=== PATIENT | female | born 1985 | race Caucasian/White ===

== ENCOUNTER → 2017-10-26 14:07 | Outpatient (CLI) | payer OTHER, SELFPAY ==
--- NOTE | 2017-10-26 14:16 | VDLE_ITS ---
Reason For Study: LEG PAIN AND SWELLING RIGHT LEFT CFV is compressible, spontaneous, phasic, GSV is normal. competent and demonstrates normal CFV is compressible, spontaneous, phasic, augmentation. competent, and demonstrates normal Procedure augmentation. Exam performed in department. FV is compressible, spontaneous, phasic, A preliminary report was called and/or faxed competent and demonstrates normal to Dr. Borjas. augmentation. POP V is compressible, spontaneous, phasic, competent and demonstrates normal augmentation. T/P Trunk is compressible. PTV is compressible. LT PerV is compressible. Interpretation Summary Deep veins of the left lower extremity are patent and compressible segmentally. There is no evidence of left lower extremity deep vein thrombosis. Valvular competence appears intact within the proximal deep venous system on the left . The left greater saphenous vein appears patent and compressible segmentally. Ordering Physician: Azucena Borjas Referring Physician: Azucena Borjas Performed By: Yisel Francois RVT
== END ==
PROVIDERS: Family Provider Family Medicine; PCP Family Medicine; Visit Provider Family Medicine
DX: M79.89 Other specified soft tissue disorders (principal); M79.606 Pain in leg, unspecified
CPT/HCPCS: 93971

== ENCOUNTER → 2018-02-15 12:24 | Outpatient (CLI) | payer OTHER, SELFPAY | PROVIDERS: Family Provider Family Medicine; PCP Family Medicine; Visit Provider Physician Assistant Surgical | DX: J02.9 Acute pharyngitis, unspecified (principal) | CPT/HCPCS: 87081 ==

== ENCOUNTER → 2018-05-07 13:33 | Outpatient (CLI) | payer OTHER, SELFPAY ==
--- NOTE | 2018-05-07 13:35 | RAD_ITS ---
STUDY: X-RAY - CERVICAL SPINE REASON FOR EXAM: Female, 32 years old. Neck pain, no trauma TECHNIQUE: 5 view(s) of the cervical spine were obtained. COMPARISON: None FINDINGS: Normal anterior atlantoaxial articulation. Normal odontoid process. There is straightening of the normal cervical lordosis. Normal vertebral bodies and endplates. Normal disc space heights. Normal visualized intervertebral neuroforamina. The soft tissue structures are unremarkable. RAD/Cerv Spine 4 or 5 Views IMPRESSION: There is mild straightening of the normal cervical lordosis. This can suggest neck strain. Electronically Signed: Rudi Maldonado MD at 17:13 EDT , Service support ,
== END ==
PROVIDERS: Family Provider Family Medicine; PCP Family Medicine; Visit Provider Physician Assistant
DX: M54.2 Cervicalgia (principal)
CPT/HCPCS: 72050

== ENCOUNTER → 2018-05-31 12:18 | Outpatient (CLI) | payer OTHER, SELFPAY ==
--- NOTE | 2018-05-31 12:26 | MRI_ITS ---
STUDY: MRI CERVICAL SPINE WITHOUT CONTRAST REASON FOR EXAM: Female, 32 years old. CERVICAL RADICULOPATHY;NECK PAIN, BILAT HAND NUMBNESS. TECHNIQUE: Standardized fat and water weighted pulse sequences were obtained in the sagittal and axial planes. # of Images: 273 COMPARISON: May 07, 2018 x-ray FINDINGS: Normal foramen magnum and brainstem-cervical cord junction. Normal craniovertebral junction. Normal anterior atlantoaxial articulation. Normal odontoid process. There is straightening of the normal cervical lordosis. Normal vertebral bodies and posterior osseous elements. C2-3: Normal endplates. Normal disc height, signal and morphology. Normal central canal and intervertebral neural foramina. C3-4: Normal endplates. Normal disc height, signal and morphology. Normal central canal and intervertebral neural foramina. C4-5: Normal endplates. Normal disc height, signal and morphology. Normal central canal and intervertebral neural foramina. C5-6: Normal endplates. Normal disc height, signal and morphology. Normal central canal and intervertebral neural foramina. C6-7: Normal endplates. Normal disc height, signal and morphology. Normal central canal and intervertebral neural foramina. C7-T1: Normal endplates. Normal disc height, signal and morphology. Normal central canal and intervertebral neural foramina. There is mild increased cord signal of the lower cervical and thoracic spinal cord, consistent with syrinx. Further evaluation with contrast-enhanced [facility] MRI is recommended. Normal visualized soft tissue structures. MRI/Spine Cervical (Routine) IMPRESSION: Spinal cord syrinx. Further evaluation with contrast-enhanced MRI of the CTL spine is recommended. N.B. : The above information has been verbally conveyed by Sue Beckman MD to Elisabet Ventura RN, on 06/02/2018 09:47:41 (ET). Electronically Signed: Sue Beckman MD at 10:57 EDT Tel , Service support ,
== END ==
PROVIDERS: Family Provider Family Medicine; PCP Family Medicine; Referring Provider Family Medicine; Visit Provider Family Medicine
DX: M50.10 Cervical disc disorder with radiculopathy, unspecified cervical region (principal)
CPT/HCPCS: 72141

== ENCOUNTER → 2018-06-14 16:12 | Outpatient (CLI) | payer OTHER, SELFPAY ==
--- NOTE | 2018-06-14 16:19 | MRI_ITS ---
STUDY: MRI CERVICAL SPINE WITH CONTRAST REASON FOR EXAM: Female, 32 years old. Syrinx TECHNIQUE: Standardized fat and water weighted pulse sequences were obtained in the sagittal and axial following I.V. administration of 13 ml of Gadavist contrast material. COMPARISON: Noncontrast study 05/31/2018 FINDINGS: Postcontrast images were obtained after previous noncontrast study demonstrated a lower cervical and thoracic syrinx. Postcontrast images demonstrate no abnormal cord enhancement. No masses are seen. No new significant disc disease is detected. MRI/Spine Cervical WITH Contrast IMPRESSION: No evidence of abnormal cord enhancement. No enhancing masses are seen. Electronically Signed: Aki Brar MD at 23:19 EDT Tel , Service support ,
--- NOTE | 2018-06-14 16:20 | MRI_ITS ---
STUDY: MRI LUMBAR SPINE WITH AND WITHOUT CONTRAST REASON FOR EXAM: Female, 32 years old. Syrinx TECHNIQUE: Standardized fat and water weighted pulse sequences were obtained in the sagittal and axial planes. 13 ml of Gadavist contrast material was administered for the contrast portion of the examination. COMPARISON: None FINDINGS: T12-L1: Normal endplates. Normal disc height, hydration and morphology. Normal bilateral facet joints. Normal central canal and bilateral lateral recesses. Normal bilateral intervertebral neural foramina. Normal lumbar lordosis. There is no substantial scoliosis. Normal conus medullaris that terminates at the L1 level. L1-2: Normal endplates. Normal disc height, hydration and morphology. Normal bilateral facet joints. Normal central canal and bilateral lateral recesses. Normal bilateral intervertebral neural foramina. L2-3: Normal endplates. Normal disc height, hydration and morphology. Normal bilateral facet joints. Normal central canal and bilateral lateral recesses. Normal bilateral intervertebral neural foramina. L3-4: Normal endplates. Normal disc height, hydration and morphology. Normal bilateral facet joints. Normal central canal and bilateral lateral recesses. Normal bilateral intervertebral neural foramina. L4-5: Normal endplates. Normal disc height, hydration and morphology. Normal bilateral facet joints. Normal central canal and bilateral lateral recesses. Normal bilateral intervertebral neural foramina. L5-S1: Normal endplates. Normal disc height, hydration and morphology. Normal bilateral facet joints. Normal central canal and bilateral lateral recesses. Normal bilateral intervertebral neural foramina. Normal visualized sacral ala. Normal visualized paraspinous soft tissue structures. MRI/Spine Lumbar W/WO Contrast IMPRESSION: Normal enhanced and unenhanced MR examination of the lumbar spine. Electronically Signed: Aki Brar MD at 23:14 EDT Tel , Service support ,
--- NOTE | 2018-06-14 16:20 | MRI_ITS ---
STUDY: MRI THORACIC SPINE WITH AND WITHOUT CONTRAST REASON FOR EXAM: Female, 32 years old. Syrinx TECHNIQUE: 13 ml of Gadavist was administered intravenously for the contrast portion of the examination. COMPARISON: MRI cervical spine 05/31/2018 FINDINGS: Linear well-defined T2 hyperintensity is present in the central thoracic cord extending from the T1 level to the T10 level. This is fusiform, with maximum diameter measuring 3 mm at the T5 level, tapering superior and inferior to the T5 level. There is no associated cord expansion. There is no associated abnormal postcontrast enhancement. No cord masses are seen. 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 At T6-7, a right paracentral disc protrusion is present with minimal central canal stenosis. At T7-8, a left paracentral disc protrusion is present with minimal central canal stenosis. The other disc levels are unremarkable. No evidence of exiting nerve root impingement. Normal thoracic spinal alignment. No compression deformities are seen. Paraspinal soft tissues are unremarkable. MRI/Spine Thoracic W/WO Contrast IMPRESSION: Fusiform syrinx extending from T1 to T10 with maximum diameter 3 mm at the T5 level. No associated cord expansion or enhancement is present. 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 Mild T6-7 and T7-8 disc disease. Electronically Signed: Aki Brar MD at 23:30 EDT Tel , Service support ,
== END ==
PROVIDERS: Family Provider Family Medicine; PCP Family Medicine; Referring Provider Family Medicine; Visit Provider Family Medicine
DX: G95.0 Syringomyelia and syringobulbia (principal)
CPT/HCPCS: 72142; 72157; 72158; A9585

== ENCOUNTER 2018-07-31 08:30 | Outpatient (RCR) | payer OTHER, SELFPAY ==
[2018-07-09 09:01] VITALS: BMI 48.9
--- NOTE | 2018-07-11 11:25 | HP.PTEVAL_ITS ---
Patient's Visit Information VEE BAZAN is a 32 year old F referred to Physical Therapy by JEAN KRAUS with a diagnosis of SYRINX, MASS OF SPINE. Date of Evaluation: 07/11/18 Physical Therapist: Jameel Yost PT, - Visit Plan Frequency: 2x /Week Duration: 4 Weeks Plan: Patient plans to have surgery possible shunt. GRADE SLOW POSTURAL EX'S,DLS,CERVICAL THORACIC STRENGTHENING- MONTOR SYMPTOMS - Subjective Findings: This 32 y/o female presents to physical therapy with syrinx and mass of spine. Patient intially noticed parathesia and fingers locked up when resting. [facility] . Then seen Dr Murphy did MRI showed syrinx . Then referred to Neuro surgeon reapeated MRI. Plan to do CT myelogram to deterimne what type of surgery. Patient has weakness weakness for many month. Currently,patient symptoms in arms and legs with arms which has worsen Symptoms worse with day goes . Symptoms affect sleeping,but gabepetin. 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 Denies tinnutis/nausea/AMBRIZ. SOCAIL: . 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 PALAPTION: tender UT ,paraspinals. NEURO: c/o parathesia /tingling arm hands,light touch intact,reflexes C5-6-7 2/3. AROM: WFL. MMT: quads/hams 4-/5,hip flexion 3+/5,ankle 4/5. BUE 4/5 M,SHOULDER 4-/5. 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 CERVICAL ROM : flexion min loss,rotation/lateral flexion mod loss,extension mod loss. THORACIC: min loss flexion,rotation ,extension mod loss - Goals Goal 1:: Independant with HEP Goal Time Frame: 4-6 Weeks Goal 2:: Independant with posture for ADL'S Goal Time Frame: 4-6 Weeks Goal 3:: Decrease symptoms by 40% during functional activities. Goal Time Frame: 4-6 Weeks Goal 4:: Patient to improve strengtrh for ADL'S and job demands with min limitations Goal Time Frame: 4-6 Weeks Goal 5:: Patient improve ANISH back score by 5 points to improve QOL. Goal Time Frame: 4-6 Weeks - Rehabilitation Potential Physical Therapy Diagnosis: This patient has sytrinx along with cyst affects symptom arms legs parathesia weakness. along with daily function wotks ,unable to to housework tasks with goals to increase strength Rehabilitation Potential: Good - Anticipated Interventions Patient/Client Instruction: Educate patient on: Condition, Plan of Care For the Purpose of:: To decrease pain, To increase ROM, To improve muscle performance and motor function, To improve ability to perform ADL's, To increase tolerance to activity/condition/position, To improve ability of physical actions for home/community/work/leisure, To improve health of tissue, To decrease soft tissue restriction, To increase flexibility/ROM, To improve ability to perform tasks related to life management Therapeutic Exercise to Include: Strength training, Postural training, Flexibilty training, Active ROM, Dynamic Lumbar Stabilization For the Purpose of:: To decrease pain, To increase ROM, To improve muscle performance and motor function, To improve ability to perform ADL's, To increase tolerance to activity/condition/position, To improve ability of physical actions for home/community/work/leisure, To improve health of tissue, To decrease soft tissue restriction, To increase flexibility/ROM, To improve ability to perform tasks related to life management TENS: Yes IF ES: Yes Cryotherapy (ice pack, ice massage): Yes Thermo therapy (hot pack): Yes Ultrasound (thermal/non thermal): Yes For the Purpose of:: To decrease pain, To increase ROM, To improve nutrient delivery to tissue, To increase oxygenation perfusion, To improve health of tissue, To decrease soft tissue restriction Thank you for the opportunity to evaluate your patient. For Medicare and Medicare HMO plans, please review the plan of care and approve it. It will need to be FAXED BACK to us at [phone] for Medicare purposes. For Medicare only, by signing this I certify the plan of care. Please let me know if there are questions or concerns regarding this plan of care. Physician Signature: Date:__
--- OUTSIDE RECORDS SUMMARY | 2018-09-05 12:25 | XMS RPT_ITS | Summary of Care ---
:1985 Author Organization [facility] Address [address] [place] [address] Phone Care Team Providers Name Role Phone Elisabet Bales Primary Care Provider Reason for Referral Radiology (Routine) Status Reason Specialty Diagnoses / Referred By Referred To Procedures Contact Contact New Request Diagnoses Syrinx Mass of spine Anterior spinal artery compression syndrome Bryan Weir Procedures XR FLUORO MYELOGRAM CERVICAL ONLY MD Charly [address] [place] [address] Radiology (Routine) Status Reason Specialty Diagnoses / Referred By Referred To Procedures Contact Contact New Request Diagnoses Syrinx Mass of spine Anterior spinal artery compression syndrome Bryan Weir Procedures XR FLUORO MYELOGRAM THORACIC/LUMBAR MD Charly [address] [place] [address] MRI/CAT Scan (Routine) Status Reason Specialty Diagnoses / Referred By Referred To Procedures Contact Contact New Request Diagnoses Anterior spinal artery compression syndrome Syrinx Mass of spine Bryan Weir Procedures CT SPINE CERVICAL THORACIC LUMBAR WITHOUT CONTRAST CO CT SCAN,CERVICAL SPINE,W/O CONTRAST CO CT SCAN,THORACIC SPINE,W/O CONTRAST CO CT SCAN,LUMBAR SPINE,W/O CONTRAST MD Charly [address] [place] [address] MRI/CAT Scan (Routine) Status Reason Specialty Diagnoses / Referred By Referred To Procedures Contact Contact New Request Diagnoses Syrinx Mass of spine Anterior spinal artery compression syndrome Bryan Weir Procedures MRI SPINE THORACIC WITHOUT CONTRAST CO MRI, DORSAL SPINE MD Charly [address] [place] [address] MRI/CAT Scan (Routine) Status Reason Specialty Diagnoses / Referred By Referred To Procedures Contact Contact New Request Diagnoses Mass of spine Syrinx Anterior spinal artery compression syndrome Bryan Weir Procedures MRI SPINE CERVICAL WITHOUT CONTRAST CO MRI, CERV LIZETH Parks MD [address] [place] [address] Adjunctive Therapy (Routine) Status Reason Specialty Diagnoses / Referred By Referred To Procedures Contact Contact New Request Physical Therapy Diagnoses Syrinx Mass of spine Anterior spinal artery compression syndrome Bryan Weir MD [address] [place] [address] Scheduling Instructions [facility] [address] [place] [address], [address] [place] [address] Fax [facility] by [facility] (Neck and [facility] Therapy) [address] [place], [place] [address] FAX [facility] [address] [address] FAX [facility] [address], [place] [address] FAX [facility] [address] [place] [phone] FAX Physical Therapy at [facility] [address], [place] [phone] FAX [facility] [address], [place] [phone] FAX [facility] [address] [place], [place] [address] FAX Reason for Visit Reason Comments New Patient Consultation (Urgent) Status Reason Specialty Diagnoses / Referred By Referred To Procedures Contact Contact New Request Neurologic Surgery Diagnoses Syrinx AmairaniElisabet, DO [address] [place] [address] Encounter Details Date Type Department Care Team Description 06/28/2018 Office Visit [facility]; Center Bryan Parks MD Mass of spine; [address] [facility] [address] [facility] Anterior [place] [address] [place], [place] [phone] [address] Allergies Active Allergy Reactions Severity Noted Date Comments Morphine 06/28/2018 as of this encounter Medications Prescription Sig. Disp. Refills Start Date End Date Status gabapentin 100 MG Cap Take 100 mg by Active capsuleIndications: mouth 3 times Syrinx, Mass of spine, daily. Anterior spinal artery compression syndrome as of this encounter Social History Tobacco Use Types Packs/Day Years Used Date Never Smoker Smokeless Tobacco: Never Used Alcohol Use Drinks/Week oz/Week Comments No Sex Assigned at Date Recorded Not on file as of this encounter Last Filed Vital Signs Vital Sign Reading Time Taken Blood Pressure 131/67 06/28/2018 1:39 PM EST Pulse 84 06/28/2018 1:39 PM EST Temperature - - Respiratory Rate - - Oxygen Saturation - - Inhaled Oxygen Concentration - - Weight 127 kg (280 lb) 06/28/2018 1:39 PM EST Height 162.6 cm (5' 4) 06/28/2018 1:39 PM EST Body Mass Index 48.06 06/28/2018 1:39 PM EST in this encounter Plan of Treatment Upcoming Encounters Date Type Specialty Care Team Description 08/01/2018 Appointment Multispecialty Bryan Weir MD [address] [place] [address] 08/01/2018 Appointment Fluoroscopy Bryan Weir MD [address] [place] [address] 08/01/2018 Appointment Fluoroscopy Bryan Weir MD [address] [place] [address] 08/01/2018 Appointment Computerized Tomography Scan Bryan Weir MD [address] [place] [address] Scheduled Tests Name Priority Associated Diagnoses Order Schedule MRI SPINE CERVICAL Routine Mass of spine Expected: 06/28/2018, WITHOUT CONTRAST Syrinx Expires: 06/28/2019 Anterior spinal artery compression syndrome MRI SPINE THORACIC Routine Syrinx Expected: 06/28/2018, WITHOUT CONTRAST Mass of spine Expires: 06/28/2019 Anterior spinal artery compression syndrome CT SPINE CERVICAL Routine Anterior spinal artery Expected: 06/28/2018, THORACIC LUMBAR WITHOUT compression syndrome Expires: 06/28/2019 CONTRAST Syrinx Mass of spine XR FLUORO MYELOGRAM Routine Syrinx Expected: 06/28/2018, THORACIC/LUMBAR Mass of spine Expires: 06/28/2019 Anterior spinal artery compression syndrome XR FLUORO MYELOGRAM Routine Syrinx Expected: 06/28/2018, CERVICAL ONLY Mass of spine Expires: 06/28/2019 Anterior spinal artery compression syndrome Scheduled Referrals Name Priority Associated Diagnoses Order Schedule AMB REFERRAL TO PHYSICAL Routine Syrinx Ordered: 06/28/2018 THERAPY Mass of spine Anterior spinal artery compression syndrome Health Maintenance Due Date Last Done Comments HIV SCREENING DISCUSSION 1997 TETANUS 2002 TDAP (ADULT) 11/05/2003 PAP SMEAR DISCUSSION 2005 INFLUENZA VACCINE (#1) 2018 as of this encounter Visit Diagnoses Diagnosis Syrinx Other myelopathy Mass of spine 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
--- OUTSIDE RECORDS SUMMARY | 2018-09-05 12:25 | XMS RPT_ITS ---
:1985 Author Organization [place] Support Name Relationship Address Phone BAZANTHEO Unavailable [address] + [place] [address] [facility] Unavailable [address] + [place] [address] ESTEE BAZANE Unavailable Unavailable Unavailable BENI VEE Unavailable Unavailable Unavailable THEO BAZAN Unavailable [address] + [place] [address] [facility] Unavailable [address] + [place] [address] THEO BAZAN Unavailable [address] + [place] [address] [facility] Unavailable [address] + [place] [address] ESTEE BAZANE Unavailable Unavailable Unavailable BAZAN VEE Unavailable Unavailable Unavailable BAZAN ALVARO Unavailable Unavailable Unavailable BAZAN, VEE Unavailable Unavailable Unavailable BAZAN, ALVARO Unavailable Unavailable Unavailable BENI VEE Unavailable Unavailable Unavailable THEO BAZAN Unavailable [address] + [place] [address] [facility] Unavailable [address] + [place] [address] BENI ALVARO Unavailable Unavailable Unavailable BAZAN VEE Unavailable Unavailable Unavailable BENI THEO Unavailable [address] + [place] [address] [facility] Unavailable [address] + [place] [address] THEO BAZAN Unavailable [address] + [place] [address] MARIA ANTONIA CHAU Unavailable [address] + [place] [address] [facility] Unavailable [address] + [place] [address] THEO BAZAN Unavailable [address] + [place] [address] KANDIMARIA ANTONIA RODRIGUEZ Unavailable [address] + [place] [address] [facility] Unavailable [address] + [place] [address] THEO BAZAN Unavailable [address] + [place] [address] MARIA ANTONIA CHAU Unavailable [address] + [place] [address] [facility] Unavailable [address] + [place] [address] CORONA BAZANHEN Unavailable [address] + [place] [address] MARIA ANTONIA CHAU Unavailable [address] + [place] [address] [facility] Unavailable [address] + [place] [address] BAZANCORONATHEO Unavailable [address] + [place] [address] MARIA ANTONIA CHAU Unavailable [address] + [place] [address] [facility] Unavailable [address] + [place] [address] CORONA BAZANHEN Unavailable [address] + [place] [address] MARIA ANTONIA CHAU Unavailable [address] + [place] [address] [facility] Unavailable [address] + [place] [address] Care Team Providers Name Role Phone JEAN KRAUS Attending Unavailable MALYS, ELISABET A Referring Unavailable MALYS, ELISABET A Primary Care Unavailable JEAN KRAUS Attending Unavailable JEAN KRAUS Referring Unavailable JEAN KRAUS Attending Unavailable JEAN KRAUS Referring Unavailable JEAN KRAUS Attending Unavailable JEAN KRAUS Referring Unavailable JEAN KRAUS Attending Unavailable JEAN KRAUS Referring Unavailable Tray Vieyra Attending Unavailable Malys, Elisabet Referring Unavailable Malys, Elisabet Primary Care Unavailable Malys, Elisabet Attending Unavailable Malys, Elisabet Referring Unavailable Malys, Elisabet Primary Care Unavailable [place], Gisele Attending Unavailable Malys, Elisabet Referring Unavailable Wyles, Tray Attending Unavailable Malys, Elisabet Referring Unavailable Malys, Elisabet Primary Care Unavailable Abhi, Viktor Attending Unavailable Malys, Elisabet Referring Unavailable Malys, Elisabet Primary Care Unavailable JACOB ROE Attending Unavailable JACOB ROE Referring Unavailable Malys, Elisabet Primary Care Unavailable JACOB ROE Consulting Unavailable Wyles, Tray Attending Unavailable Wyles, Tray Referring Unavailable Malys, Elisabet Primary Care Unavailable Abhi, Viktor Attending Unavailable Abhi, Viktor Referring Unavailable Malys, Elisabet Primary Care Unavailable [place], Gisele Attending Unavailable Shanna, Gisele Referring Unavailable Malys, Elisabet Primary Care Unavailable Malys, Elisabet Attending Unavailable Malys, Elisabet Referring Unavailable Malys, Elisabet Primary Care Unavailable Miedel, Azucena Attending Unavailable Miedel, Azucena Referring Unavailable Malys, Elisabet Primary Care Unavailable PROBLEMS PROBLEMS DATE TYPE CONDITION / CODE ATTENDING STATUS SOURCE 07/31/2018 Unknown G95.0 - JACOB ROE Active [place] Syringomyelia and Community syringobulbia / Hospital G95.0(ICD-10) Repository 07/31/2018 Unknown M89.9 - Disorder of JACOB ROE Active [place] bone, unspecified / Community M89.9(ICD-10) Hospital Repository 06/28/2018 Admitting Syringomyelia and [place], Active [facility] diagnosis syringobulbia / [facility] G95.0(ICD-10) [facility] Repository 06/06/2018 Unknown N92.1 - Excessive [place], Active [place] and frequent [place] Community menstruation with Hospital irregular cycle / Repository N92.1(ICD-10) 05/07/2018 Unknown M54.2 - Cervicalgia Tray Vieyra Active [place] / M54.2(ICD-10) [facility] Hospital Repository 02/15/2018 Unknown J02.9 - Acute Abhi, Viktor Active [place] pharyngitis, Community unspecified / Hospital J02.9(ICD-10) Repository 10/26/2017 Unknown R06.9 - Unspecified Miedel, Azucena Active [place] abnormalities of Community breathing / Hospital R06.9(ICD-10) Repository 10/26/2017 Unknown M79.605 - Pain in Azucena Borjas Active [place] left leg / Community M79.605(ICD-10) Hospital Repository 09/18/2017 Unknown J11.1 - Influenza Tray Vieyra Active [place] due to unidentified Community influenza virus with Hospital other respiratory Repository manifestations / J11.1(ICD-10) PROCEDURES PROCEDURES No Procedure Records FoundRESULTS RESULTS INITAL EVALUATION (1) Observed: 07/11/2018 Status: F Source: [place] - PT 12:08 PM [facility] [address] [place] [address] Fax REHABILITATION SERVICES INITIAL EVALUATION MR#: [id number] Acct: [id number] Name: VEE BAZAN Rep #: [id number] : 1985 32 From: Maria Antonia Yost PT, Cert. MDT, OCS Referring Dr.: Status: REG RCR Insurance: [facility] [employer] SELF PAY INSURANCE Patient's Visit Information VEE BAZAN is a 32 year old F referred to Physical Therapy by JEAN KRAUS with a diagnosis of SYRINX, MASS OF SPINE. Date of Evaluation: 07/11/18 Physical Therapist: Maria Antonia Yost PT, - Visit Plan Frequency: 2x /Week Duration: 4 Weeks Plan: Patient plans to have surgery possible shunt. GRADE SLOW POSTURAL EX'S,DLS,CERVICAL THORACIC STRENGTHENING- MONTOR SYMPTOMS - Subjective Findings: This 32 y/o female presents to physical therapy with syrinx and mass of spine. Patient intially noticed parathesia and fingers locked up when resting. [facility]en [facility] did [facility] . Then seen Dr Murphy did MRI showed syrinx . Then referred to Neuro surgeon reapeated MRI. Plan to do CT myelogram to deterimne what type of surgery. Patient has weakness weakness for many month. Currently,patient symptoms in arms and legs with arms which has worsen Symptoms worse with day goes . Symptoms affect sleeping,but gabepetin. 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 Denies tinnutis/nausea/AMBRIZ. SOCAIL: . 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 PALAPTION: tender UT ,paraspinals. NEURO: c/o parathesia /tingling arm hands,light touch intact,reflexes C5-6-7 2/3. AROM: WFL. MMT: quads/hams 4-/5,hip flexion 3+/5,ankle 4/5. BUE 4/5 M,SHOULDER 4-/5. GLASS POLISHER STRENGTH: 10 # BILATERAL. CERVICAL ROM : flexion min loss,rotation/lateral flexion mod loss,extension mod loss. THORACIC: min loss flexion,rotation ,extension mod loss - Goals Goal 1:: Independant with HEP Goal Time Frame: 4-6 Weeks Goal 2:: Independant with posture for ADL'S Goal Time Frame: 4-6 Weeks Goal 3:: Decrease symptoms by 40% during functional activities. Goal Time Frame: 4-6 Weeks Goal 4:: Patient to improve strengtrh for ADL'S and job demands with min limitations Goal Time Frame: 4-6 Weeks Goal 5:: Patient improve ANISH back score by 5 points to improve QOL. Goal Time Frame: 4-6 Weeks - Rehabilitation Potential Physical Therapy Diagnosis: This patient has sytrinx along with cyst affects symptom arms legs parathesia weakness. along with daily function wotks ,unable to to housework tasks with goals to increase strength Rehabilitation Potential: Good - Anticipated Interventions Patient/Client Instruction: Educate patient on: Condition, Plan of Care For the Purpose of:: To decrease pain, To increase ROM, To improve muscle performance and motor function, To improve ability to perform ADL's, To increase tolerance to activity/condition/position, To improve ability of physical actions for home/community/work/leisure, To improve health of tissue, To decrease soft tissue restriction, To increase flexibility/ROM, To improve ability to perform tasks related to life management Therapeutic Exercise to Include: Strength training, Postural training, Flexibilty training, Active ROM, Dynamic Lumbar Stabilization For the Purpose of:: To decrease pain, To increase ROM, To improve muscle performance and motor function, To improve ability to perform ADL's, To increase tolerance to activity/condition/position, To improve ability of physical actions for home/community/work/leisure, To improve health of tissue, To decrease soft tissue restriction, To increase flexibility/ROM, To improve ability to perform tasks related to life management TENS: Yes IF ES: Yes Cryotherapy (ice pack, ice massage): Yes Thermo therapy (hot pack): Yes Ultrasound (thermal/non thermal): Yes For the Purpose of:: To decrease pain, To increase ROM, To improve nutrient delivery to tissue, To increase oxygenation perfusion, To improve health of tissue, To decrease soft tissue restriction Thank you for the opportunity to evaluate your patient. For Medicare and Medicare HMO plans, please review the plan of care and approve it. It will need to be FAXED BACK to us at [phone] for Medicare purposes. For Medicare only, by signing this I certify the plan of care. Please let me know if there are questions or concerns regarding this plan of care. Physician Signature: Date: <Electronically signed by Maria Antonia Yost PT, Cert. T, OCS> 07/11/18 1208 CC: JEAN KRAUS; Elisabet Bales DO ROSITA Signed SPINE LUMBAR W/WO Observed: 06/14/2018 Status: F Source: [place] CONTRAST 4:20 PM [facility] REPOSITORY [facility] Imaging Services [address] [place] [address] Spine Lumbar W/WO Contrast MR#: [id number] Acct: [id number] Name: VEE BAZAN Rep #: [id number] : 1985 F 32 From: Aki Brar MD PCP: Elisabet Bales DO Status: REG CLI Study: Spine Lumbar W/WO Contrast Date of Exam: 06/14/18 Exam# [id number] Ordering Dr: Elisabet Bales DO STUDY: MRI LUMBAR SPINE WITH AND WITHOUT CONTRAST REASON FOR EXAM: Female, 32 years old. Syrinx TECHNIQUE: Standardized fat and water weighted pulse sequences were obtained in the sagittal and axial planes. 13 ml of Gadavist contrast material was administered for the contrast portion of the examination. COMPARISON: None FINDINGS: T12-L1: Normal endplates. Normal disc height, hydration and morphology. Normal bilateral facet joints. Normal central canal and bilateral lateral recesses. Normal bilateral intervertebral neural foramina. Normal lumbar lordosis. There is no substantial scoliosis. Normal conus medullaris that terminates at the L1 level. L1-2: Normal endplates. Normal disc height, hydration and morphology. Normal bilateral facet joints. Normal central canal and bilateral lateral recesses. Normal bilateral intervertebral neural foramina. L2-3: Normal endplates. Normal disc height, hydration and morphology. Normal bilateral facet joints. Normal central canal and bilateral lateral recesses. Normal bilateral intervertebral neural foramina. L3-4: Normal endplates. Normal disc height, hydration and morphology. Normal bilateral facet joints. Normal central canal and bilateral lateral recesses. Normal bilateral intervertebral neural foramina. L4-5: Normal endplates. Normal disc height, hydration and morphology. Normal bilateral facet joints. Normal central canal and bilateral lateral recesses. Normal bilateral intervertebral neural foramina. L5-S1: Normal endplates. Normal disc height, hydration and morphology. Normal bilateral facet joints. Normal central canal and bilateral lateral recesses. Normal bilateral intervertebral neural foramina. Normal visualized sacral ala. Normal visualized paraspinous soft tissue structures. MRI/Spine Lumbar W/WO Contrast IMPRESSION: Normal enhanced and unenhanced MR examination of the lumbar spine. Electronically Signed: Aki Brar MD at 23:14 EDT Tel , Service support , CC: Elisabet Bales DO Senior Telecommunications Consultant: Signed SPINE CERVICAL WITH Observed: 06/14/2018 Status: F Source: [place] CONTRAST 4:20 PM [facility] REPOSITORY [facility] Imaging Services [address] [place], [place] [id number] Spine Cervical WITH Contrast MR#: [id number] Acct: [id number] Name: VEE BAZAN Rep #: [id number] : 1985 F 32 From: Aki Brar MD PCP: Elisabet Bales DO Status: REG CLI Study: Spine Cervical WITH Contrast Date of Exam: 06/14/18 Exam# [id number] Ordering Dr: Elisabet Bales DO STUDY: MRI CERVICAL SPINE WITH CONTRAST REASON FOR EXAM: Female, 32 years old. Syrinx TECHNIQUE: Standardized fat and water weighted pulse sequences were obtained in the sagittal and axial following I.V. administration of 13 ml of Gadavist contrast material. COMPARISON: Noncontrast study 05/31/2018 FINDINGS: Postcontrast images were obtained after previous noncontrast study demonstrated a lower cervical and thoracic syrinx. Postcontrast images demonstrate no abnormal cord enhancement. No masses are seen. No new significant disc disease is detected. MRI/Spine Cervical WITH Contrast IMPRESSION: No evidence of abnormal cord enhancement. No enhancing masses are seen. Electronically Signed: Aki Brar MD at 23:19 EDT Tel , Service support , CC: Elisabet Bales DO Senior Telecommunications Consultant: Signed SPINE THORACIC W/WO Observed: 06/14/2018 Status: F Source: [place] CONTRAST 4:20 PM [facility] REPOSITORY [facility] Imaging Services [address] [place] [address] Spine Thoracic W/WO Contrast MR#: [id number] Acct: [id number] Name: VEE BAZAN Rep #: [id number] : 1985 F 32 From: Aki Brar MD PCP: Elisabet Bales DO Status: REG CLI Study: Spine Thoracic W/WO Contrast Date of Exam: 06/14/18 Exam# [id number] Ordering Dr: Elisabet Bales DO STUDY: MRI THORACIC SPINE WITH AND WITHOUT CONTRAST REASON FOR EXAM: Female, 32 years old. Syrinx TECHNIQUE: 13 ml of Gadavist was administered intravenously for the contrast portion of the examination. COMPARISON: MRI cervical spine 05/31/2018 FINDINGS: Linear well-defined T2 hyperintensity is present in the central thoracic cord extending from the T1 level to the T10 level. This is fusiform, with maximum diameter measuring 3 mm at the T5 level, tapering superior and inferior to the T5 level. There is no associated cord expansion. There is no associated abnormal postcontrast enhancement. No cord masses are seen. 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 At T6-7, a right paracentral disc protrusion is present with minimal central canal stenosis. At T7-8, a left paracentral disc protrusion is present with minimal central canal stenosis. The other disc levels are unremarkable. No evidence of exiting nerve root impingement. Normal thoracic spinal alignment. No compression deformities are seen. Paraspinal soft tissues are unremarkable. MRI/Spine Thoracic W/WO Contrast IMPRESSION: Fusiform syrinx extending from T1 to T10 with maximum diameter 3 mm at the T5 level. No associated cord expansion or enhancement is present. 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 Mild T6-7 and T7-8 disc disease. Electronically Signed: Aki Brar MD at 23:30 EDT Tel , Service support , CC: Elisabet Bales DO Senior Telecommunications Consultant: Signed [employer] OFFICE VISIT Observed: 06/06/2018 Status: F Source: [place] REPORT 12:33 PM [facility] 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 Is patient in pain?: No Allergies acetaminophen [From Vicodin] Allergy (Verified 06/06/18 12:14) Rash hydrocodone [From Vicodin] Allergy (Verified 06/06/18 12:14) Rash morphine Allergy (Verified 06/06/18 12:14) Anaphylaxis Is last menstrual period known: Yes Last Menstral Period: 05/30/18 Post menopausal: No Patient : No : No [facility] Medical History Syrinx (Acute) Back pain (Acute) Fatigue (Acute) Migraine (Acute) SOB (shortness of breath) (Acute) Surgical History History of cholecystectomy (Acute) Hx of tonsillectomy (Acute) Family History Mother Cancer Father Cancer Social History Smoking Status: Unknown if ever smoked alcohol intake: never substance use type: does not use caffeine: Yes what type of physical activity do you participate in: walking seatbelt use: always do you feel safe at home: Yes additional social history: Soila [employer] 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 She is also noting more hair growth on chin. She has seen Dr. Worley at [facility] in past. She has had [facility] for contraception. She is and denies STD concerns. She has been having numbness in arms and hands and had MRI per PCP Dr. Bales and told yesterday she has a syrinx in her spinal cord(neck) and will be seeing a neurosurgeon at [facility] next week. She is not bleeding today. Female Reproductive History Last Menstral Period: 05/30/18 Assessment AND Plan Problems 1. Menorrhagia with irregular cycle N92.1 Plan Ultrasound TSH, prolactin, testosterone, DHEAS, 17 hydrozyprogesterone, call results and decide treatment options-she prefers not to schedule another appt until after next week 20 min FTF counseling with patient. Orders Orders: Coding Level of Care Code Off vis,new,level 3 Diagnoses Menorrhagia with irregular cycle N92.1 06/06/18 1233 <Electronically signed by Gisele BARTON> Date Gisele BARTON Cosigner Signature: Date (if applicable) CC: SPINE CERVICAL Observed: 05/31/2018 Status: F Source: [place] (ROUTINE) 12:27 PM [facility] REPOSITORY [facility] Imaging Services [address] [place] [address] Spine Cervical (Routine) MR#: [id number] Acct: [id number] Name: VEE BAZAN Gary Rep #: [id number] : 1985 F 32 From: Sue Beckman PCP: Elisabet Bales DO Status: REG CLI Study: Spine Cervical (Routine) Date of Exam: 05/31/18 Exam# [id number] Ordering Dr: Elisabet Bales DO STUDY: MRI CERVICAL SPINE WITHOUT CONTRAST REASON FOR EXAM: Female, 32 years old. CERVICAL RADICULOPATHY;NECK PAIN, BILAT HAND NUMBNESS. TECHNIQUE: Standardized fat and water weighted pulse sequences were obtained in the sagittal and axial planes. # of Images: [id number] COMPARISON: May 07, 2018 x-ray FINDINGS: Normal foramen magnum and brainstem-cervical cord junction. Normal craniovertebral junction. Normal anterior atlantoaxial articulation. Normal odontoid process. There is straightening of the normal cervical lordosis. Normal vertebral bodies and posterior osseous elements. C2-3: Normal endplates. Normal disc height, signal and morphology. Normal central canal and intervertebral neural foramina. C3-4: Normal endplates. Normal disc height, signal and morphology. Normal central canal and intervertebral neural foramina. C4-5: Normal endplates. Normal disc height, signal and morphology. Normal central canal and intervertebral neural foramina. C5-6: Normal endplates. Normal disc height, signal and morphology. Normal central canal and intervertebral neural foramina. C6-7: Normal endplates. Normal disc height, signal and morphology. Normal central canal and intervertebral neural foramina. C7-T1: Normal endplates. Normal disc height, signal and morphology. Normal central canal and intervertebral neural foramina. There is mild increased cord signal of the lower cervical and thoracic spinal cord, consistent with syrinx. Further evaluation with contrast-enhanced [facility] MRI is recommended. Normal visualized soft tissue structures. MRI/Spine Cervical (Routine) IMPRESSION: Spinal cord syrinx. Further evaluation with contrast-enhanced MRI of the [facility] spine is recommended. N.B. : The above information has been verbally conveyed by Sue Beckman MD to Elisabet Ventura RN, on 06/02/2018 09:47:41 (ET). Electronically Signed: Sue Beckman MD at 10:57 EDT Tel , Service support , CC: Elisabet Bales DO Senior Telecommunications Consultant: Signed URGENT CARE VISIT Observed: 05/07/2018 Status: F Source: [place] REPORT 1:51 PM [facility] REPOSITORY [address] [place] [address] OFFICE VISIT Date of Service: 05/07/18 MR#: [id number] Acct: [id number] Name: VEE BAZAN Rep #: [id number] : 1985 Provider: Tray BENAVIDES Age/Sex: 32/F Location: [facility] Status: Signed Intake Vital Signs05/07/18 Height 5 ft 4 in Intake Visit Reasons: LEFT INDEX FINGER SWOLLEN Chief Complaint: left thumb, LIF, LMF pain and paresthesias Allergies acetaminophen [From Vicodin] Allergy (Verified 05/07/18 13:28) Rash hydrocodone [From Vicodin] Allergy (Verified 05/07/18 13:28) Rash morphine Allergy (Verified 05/07/18 13:28) Anaphylaxis Medications acetaminophen 325 mg tablet 650 mg PO Q4H PRN 09/18/17 [History Confirmed 05/07/18] cyclobenzaprine 10 mg tablet 10 mg PO TID PRN #14 tab 05/07/18 [Rx Confirmed 05/07/18] prednisone 20 mg tablet 20 mg PO DAILY #18 tab 05/07/18 [Rx Confirmed 05/07/18] PFSH Medical History Back pain (Acute) Fatigue (Acute) Migraine (Acute) SOB (shortness of breath) (Acute) Surgical History History of cholecystectomy (Acute) Hx of tonsillectomy (Acute) Family History Mother Cancer Father Cancer Social History Smoking Status: Unknown if ever smoked alcohol intake: never HPI HPI Chief Complaint: left thumb, LIF, LMF pain and paresthesias Details: VEE BAZAN, is a 32 F who presents to the office today for initial evaluation 3-4 day history of progressive worsening left thumb, left index, and left middle finger pain and paresthesias. Patient has no history of trauma to the same. She is right-hand dominant. 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 She notes a history of chronic neck pain for which she is followed up with her PCP for. She notes no prior history of having cervical radiographs or following up with a specialist regarding her neck pain. She notes no other associated symptoms and no other alleviating or aggravating factors. ROS Const Constitutional: No other (ROS negative 10 other than as noted above) Exam Const General: cooperative, healthy appearing, no acute distress Orientation: alert, awake, oriented x3 HENMT Head: normal to inspection, atraumatic, normocephalic Neck Neck: normal visual inspection, full ROM, no lymphadenopathy Neck mass: No Thyroid: thyroid normal Lymphatic: no lymphadenopathy noted Chest Chest palpation AND inspection: normal inspection of the chest Resp Effort AND Inspection: normal respiratory effort, able to speak in complete sentences, symmetric chest movement, no cough Cardio Rate: regular rate Pulses: radial pulses present GI Inspection: normal to inspection Musc Cervical Spine: normal cervical lordosis, cervical ROM normal, cervical muscular tenderness and pain with cervical ROM; no cervical spinal tenderness or Spurling sign Thoracic/Lumbar Spine: thoracic and lumbar spine normal to inspection, no thoracic spinal tenderness, no paraspinal tenderness Skin General: no rashes or lesions noted Neuro General: alert, awake, oriented x3, gait normal Cognition: normal cognition Speech: speech normal Gait: normal gait Motor: muscle tone normal throughout Sensory Exam: no sensory deficits noted (Except paresthesias to left thumb, LIF, radial LMF) Extrem General: normal to inspection Psych Appearance: grossly normal Mental Status: mental status grossly normal Mood: congruent mood Affect: normal affect Speech and Movement: speech and movement normal Attitude: cooperative Thought Process: normal Thought Content: normal Judgment: judgment good Assessment AND Plan Problems 1. Cervical strain S16.1XXA 2. Cervical radiculopathy M54.12 Plan Prednisone and Flexeril as prescribed today. Ergonomic recommendations as well as home range of motion exercises as instructed today. C-spine radiographs reveal no acute pathology per my review, radiologist interpretation at the time of this dictation. My interpretation of today's radiographs reviewed with patient in office today. Follow-up with PCP and/or orthopedic-student career development specialist first available for continuation of care. Patient states acknowledging understanding all the above. This note was generated with Bill.Forward dictation software. It may contain incorrect words, spelling, and punctuation that were not noted in checking the note before signing. Orders Orders: Medications New: prednisone 3 tabs daily for 3 days, then 2 tabs daily for 3 days, then 20 mg PO DAILY 1 tab daily for 3 days Coding Level of Care Code Off vis,est,level 4 Diagnoses Cervical strain S16.1XXA Cervical radiculopathy M54.12 Time Spent (min) 30 05/07/18 1351 <Electronically signed by Tray BENAVIDES> Date Tray BENAVIDES Cosigner Signature: Date (if applicable) CC: CERV SPINE 4 OR 5 Observed: 05/07/2018 Status: F Source: [place] VIEWS 1:35 PM [facility] REPOSITORY [facility] Imaging Services [address] [place] [address] Cerv Spine 4 or 5 Views MR#: [id number] Acct: [id number] Name: BENIVEE LEE Rep #: [id number] : 1985 F 32 From: Rudi Maldonado MD PCP: Elisabet Bales DO Status: REG CLI Study: Cerv Spine 4 or 5 Views Date of Exam: 05/07/18 Exam# [id number] Ordering Dr: Tray Vieyra STUDY: X-RAY - CERVICAL SPINE REASON FOR EXAM: Female, 32 years old. Neck pain, no trauma TECHNIQUE: 5 view(s) of the cervical spine were obtained. COMPARISON: None FINDINGS: Normal anterior atlantoaxial articulation. Normal odontoid process. There is straightening of the normal cervical lordosis. Normal vertebral bodies and endplates. Normal disc space heights. Normal visualized intervertebral neuroforamina. The soft tissue structures are unremarkable. RAD/Cerv Spine 4 or 5 Views IMPRESSION: There is mild straightening of the normal cervical lordosis. This can suggest neck strain. Electronically Signed: Rudi Maldonado MD at 17:13 EDT , Service support , CC: Elisabet Bales DO; Tray BENAVIDES Senior Telecommunications Consultant: Signed Observed: 02/15/2018 Status: F Source: BLAINE CULTURE, R/O STREP A 1:36 PM [facility] RE[facility] JAMEE Culture No Group A Beta Streptococcus isolated. * This cultures intended use is to screen for Beta Streptococcus A only. All other pathogens and potential pathogens will not be screened for or reported. If a complete workup of all potential pathogens is indicated an order for a routine throat culture is required. Performed By: #### M100.010 #### [facility] [address] [place], [address] URGENT CARE VISIT Observed: 02/14/2018 Status: F Source: BLAINE REPORT 1:20 PM [facility] [address] [place] [address] 6 [place] [address] OFFICE VISIT Date of Service: 02/14/18 MR#: [id number] Acct: [id number] Name: VEE BAZAN ELINA Rep #: [id number] : 1985 Provider: Viktor BENAVIDES Age/Sex: 32/F Location: [facility] Status: Signed Intake Vital Signs02/14/18 Height 5 ft 4 in Intake Visit Reasons: strep Allergies acetaminophen [From Vicodin] Allergy (Verified 02/14/18 12:43) Rash hydrocodone [From Vicodin] Allergy (Verified 02/14/18 12:43) Rash morphine Allergy (Verified 02/14/18 12:43) Anaphylaxis Medications acetaminophen 325 mg tablet 650 mg PO Q4H PRN 09/18/17 [History Confirmed 02/14/18] amoxicillin 500 mg capsule 500 mg PO BID 10 Days #20 cap 02/14/18 [Rx Confirmed 02/14/18] PFSH Medical History Back pain (Acute) Fatigue (Acute) Migraine (Acute) SOB (shortness of breath) (Acute) Surgical History History of cholecystectomy (Acute) Hx of tonsillectomy (Acute) Family History Mother Cancer Father Cancer Social History Smoking Status: Unknown if ever smoked alcohol intake: never HPI HPI Details: VEE BAZAN, is a 32 F who presents to the office today for complaint of sore throat for the past 12 hours. Patient reports that she is concerned for possible strep as she noticed white spots to the back left throat. She reports that the ibuprofen she has taken only slightly helped with her pain. She does however deny fever, chills, sweats. No nausea, vomiting, diarrhea. No shortness of breath or difficulty breathing. No other associated symptoms or alleviating/aggravating factors. ROS Const Constitutional: No fever(s), headache(s), anorexia, chills or abnormal sleep pattern ENT ENT: Positive for post nasal drip, sore throat, nasal congestion and nasal discharge; no headache(s) or ear pain Resp Respiratory: No shortness of breath Cardio Cardiology: No irregular heart rhythm or palpitations Gastro GI: No nausea/dyspepsia Neuro Neurology: No headache(s) or behavioral changes Psych Psychiatric: No abnormal sleep pattern, No behavioral changes Exam Const General: cooperative, healthy appearing [facility] Head: normal to inspection Ears: hearing grossly normal bilaterally, TM's normal bilaterally, EAC's normal Nose: external nose normal, nasal discharge clear Mouth: oral mucosae normal Throat: abnormal tonsil bilaterally Resp Effort AND Inspection: normal respiratory effort Auscultation: Bilateral: Clear to Auscultation Cardio Palpation: normal PMI Rate: regular rate Rhythm: regular rhythm Neuro General: CN's II-XI intact bilaterally, alert Psych Appearance: grossly normal Mental Status: mental status grossly normal Results BMSRAPIDSTREPA Office Rapid Strep A Negative Last Edit by Tracy Prieto on 02/14/18 12:46 Assessment AND Plan Problems 1. Acute pharyngitis, unspecified etiology J02.9 Status Acute Plan Amoxicillin as prescribed today. Encouraged to get plenty of rest, drink lots of clear liquids, and use Tylenol or Ibuprofen (unless contraindicated) for fever and comfort. Patient also educated on other symptomatic management techniques. To be seen in 7-10 days if no improvement; sooner if worsening of symptoms. Patient advised of potential red flags were appropriate report to the ED. Patient verbalized understanding of all the above. This note was generated with Bill.Forward dictation software. It may contain incorrect words, spelling, and punctuation that were not noted in checking the note before signing. Orders Orders: Medications New: Coding Level of Care Code Off vis,est,level 3 Diagnoses Acute pharyngitis, unspecified etiology J02.9 Pharyngitis/tonsillitis etiology: unspecified etiology 02/14/18 1320 <Electronically signed by Viktor BENAVIDES> Date Viktor BENAVIDES Cosigner Signature: Date (if applicable) CC: VENOUS DUPLEX LOWER Observed: 10/26/2017 Status: F Source: BLAINE EXTREMITY 9:46 PM [facility] REPOSIT[facility] Cardiovascular Services [address] [place] [address] Venous Duplex US, Unilateral 10/26/17 1414 MR#: [id number] Acct: [id number] Name: VEE BAZAN Rep #: [id number] : 1985 31 From: Jacob Chinchilla MD Attending Dr: Azucena Borjas Status: REG CLI Ordering Dr: Azucena Borjas Date: 10/26/17 Location: [facility] Sex: F C Admitted: Reason For Study: LEG PAIN AND SWELLING RIGHT LEFT CFV is compressible, spontaneous, phasic, GSV is normal. competent and demonstrates normal CFV is compressible, spontaneous, phasic, augmentation. competent, and demonstrates normal Procedure augmentation. Exam performed in department. FV is compressible, spontaneous, phasic, A preliminary report was called and/or faxed competent and demonstrates normal to Dr. Borjas. augmentation. POP V is compressible, spontaneous, phasic, competent and demonstrates normal augmentation. T/P Trunk is compressible. PTV is compressible. LT PerV is compressible. Interpretation Summary Deep veins of the left lower extremity are patent and compressible segmentally. There is no evidence of left lower extremity deep vein thrombosis. Valvular competence appears intact within the proximal deep venous system on the left . The left greater saphenous vein appears patent and compressible segmentally. Ordering Physician: Azucena Borjas Referring Physician: Azucena Borjas Performed By: Yisel Francois RVT 10/26/172144 Date Jacob Chinchilla MD CC: Azucena Bales DO Date Dictated: 10/26/17 1414 Date Transcribed: 10/26/172144 Senior Telecommunications Consultant: Signed URGENT CARE VISIT Observed: 09/18/2017 Status: F Source: BLAINE REPORT 12:10 PM [facility] [address] [address] OFFICE VISIT Date of Service: 09/18/17 MR#: [id number] Acct: [id number] Name: VEE BAZAN Rep #: [id number] : 1985 Provider: Tray BENAVIDES Age/Sex: 31/F Location: [facility] Status: Signed Intake Vital Signs09/18/17 Height 5 ft 4 in Intake Visit Reasons: FLU Chief Complaint: AMBRIZ, chills, cough Is patient in pain?: No Allergies acetaminophen [From Vicodin] Allergy (Verified 09/18/17 11:45) Rash hydrocodone [From Vicodin] Allergy (Verified 09/18/17 11:45) Rash morphine Allergy (Verified 02/22/17 08:39) Anaphylaxis Medications acetaminophen 325 mg tablet 650 mg PO Q4H PRN 09/18/17 [History Confirmed 09/18/17] oseltamivir 75 mg capsule 75 mg PO BID 5 Days #10 cap 09/18/17 [Rx Confirmed 09/18/17] PFSH Medical History Back pain (Acute) Fatigue (Acute) Migraine (Acute) SOB (shortness of breath) (Acute) Surgical History History of cholecystectomy (Acute) Hx of tonsillectomy (Acute) Family History Mother Cancer Father Cancer Social History Smoking Status: Unknown if ever smoked alcohol intake: never HPI HPI Chief Complaint: AMBRIZ, chills, cough Details: VEE BAZAN, is a 31 F who presents to the office today for initial evaluation 24 hr h/o AMBRIZ, myalgias, chills - and new onset cough this morning. No associated sweat, rash, cp/ sob. Pt notes recent exposure to several family members recently dx'd w/ influenza, and is here requesting assessment and treatment. No otc products have assisted her symptoms. No other associated s/sx; no other +/- factors. ROS Const Constitutional: Positive for chills, body ache and headache(s); no excessive sweating, abnormal sleep pattern, fever(s) or night sweats Eyes Eyes: No change in vision ENT ENT: Positive for headache(s); no abnormal hearing, ear pain, ear discharge, ear pressure, hearing loss, post nasal drip or sinus pressure Resp Respiratory: Positive for cough; no chest congestion Cardio Cardiology: No excessive sweating, chest pain at rest, chest pain with exertion, shortness of breath, dyspnea on exertion, irregular heart rhythm, generalized swelling or leg pain with exertion Gastro GI: No abdominal pain, change in stool character or change in bowel habits Musc Musculoskeletal: No joint pain, back pain or limited range of motion Skin Skin: No change in hair or sores Neuro Neurology: Positive for headache(s); no abnormal hearing, abnormal speech or abnormal movements Psych Psychiatric: No abnormal sleep pattern Endo Endocrine: No excessive sweating, change in body appearance, cold intolerance or heat intolerance Aller/Imm Allergy/Immunologic: No food intolerance Wade/Lymp Hematologic/Lymphatic: No easy bruising Exam Const General: cooperative, healthy appearing, no acute distress Nutritional Appearance: average body habitus Orientation: alert, awake, oriented x3 [facility] Head: normal to inspection Ears: hearing grossly normal bilaterally, TM's normal bilaterally, EAC's normal, external ears normal Nose: external nose normal, nares normal, septum normal, no nasal discharge Face and sinus: normal facial exam, sinuses nontender, face symmetric Mouth: oral mucosae normal, lip normal, oropharynx normal, tongue normal Teeth and gingiva: dentition normal, gingiva normal Throat: posterior oropharynx normal, tonsils normal, uvula midline Eyes General: appearance normal, both eyes and all related structures Neck Neck: normal visual inspection, full ROM, no meningeal signs, supple, lymphadenopathy Neck mass: No Thyroid: thyroid normal Lymphatic: no lymphadenopathy noted Chest Chest palpation AND inspection: normal inspection of the chest Resp Effort AND Inspection: normal respiratory effort, able to speak in complete sentences, symmetric chest movement, no cough (No unsolicited cough appreciated during today's exam) Auscultation: Bilateral: Clear to Auscultation Cardio Palpation: normal PMI Rate: regular rate Rhythm: regular rhythm Heart Sounds: S1 normal, S2 normal, no gallops, no murmurs, no rubs Pulses: radial pulses present GI Inspection: normal to inspection Palpation: soft, no hepatosplenomegaly Skin General: no rashes or lesions noted Neuro General: alert, awake, oriented x3, gait normal Cognition: normal cognition Speech: speech normal Gait: normal gait Motor: muscle tone normal throughout Sensory Exam: no sensory deficits noted Extrem General: normal to inspection Psych Appearance: grossly normal Mental Status: mental status grossly normal Mood: congruent mood Affect: normal affect Speech and Movement: speech and movement normal Attitude: cooperative Thought Process: normal Thought Content: normal Judgment: judgment good Assessment AND Plan Problems 1. Influenza J11.1 Plan Tamiflu as prescribed today. Clear fluids, rest, Advil/Tylenol as needed for symptomatic relief. Follow-up PCP in 7-10 days should symptoms not improved, sooner should symptoms worsen or any other concerns develop. Patient states knowledge and understanding all the above. This note was generated with Transaveation software. It may contain incorrect words, spelling, and punctuation that were not noted in checking the note before signing. Medications New: Discontinued: Coding Level of Care Code Off vis,new,level 4 Diagnoses Influenza J11.1 09/18/17 1210 <Electronically signed by Tray BENAVIDES> Date Tray BENAVIDES Cosigner Signature: Date (if applicable) CC: ALLERGIES ALLERGIES DATE TYPE / CODE NAME / CODE REACTION SEVERITY SOURCE 06/06/2018 Drug morphine/F0 Anaphylaxis Unknown [facility] Allergy/4160 [id number](RX Hospital 18670(SNOMED NORM) Repository CT) 06/06/2018 Drug hydrocodone Rash Unknown [facility] Allergy/4160 /[id number] Hospital 03464(SNOMED (RXNORM) Repository CT) 06/06/2018 Drug acetaminoph Rash Unknown [facility] Allergy/4160 en/[id number] Hospital 80516(SNOMED 05(RXNORM) Repository CT) ENCOUNTERS ENCOUNTERS ADMIT/DISCHARGE ACCOUNT NUMBER ADMITTING ENCOUNTER LOCATION SOURCE CLASS 07/31/2018 [id number] Ambulatory [facility] ding:PT Repository 06/28/2018 [id number] Ambulatory Building:[facility] Repository 06/18/2018 [id number] Ambulatory [facility] ding:OPUS Repository 06/14/2018 [id number] Ambulatory [facility] ding:MRI Repository 06/14/2018 [id number] Ambulatory Building:[facility] Repository 06/14/2018 [id number] Ambulatory Building:[facility] Repository 06/14/2018 [id number] Ambulatory Building:[facility] Repository 06/06/2018/06/06/20 [id number] Ambulatory BMSBuilding: [facility] [address] [place] [address] Repository 05/31/2018 [id number] Ambulatory Building:[facility] Repository 05/31/2018 [id number] Ambulatory [facility] ding:MRI Repository 05/07/2018 [id number] Ambulatory [facility] ding:HPRAD Repository 05/07/2018/05/07/20 [id number] Ambulatory BMSBuilding: [facility] [address] Repository 02/15/2018 [id number] Ambulatory [facility] ding:LABSPEC Repository 02/14/2018/02/15/20 [id number] Ambulatory BMSBuilding: [facility] [address] Repository 10/26/2017 [id number] Ambulatory [facility] ding:CVS Repository 09/18/2017/09/18/19 [id number] Ambulatory BMSBuilding: [facility] [address] Repository PAYERS PAYERS ENCOUNTER GUARANTOR PAYER SUBSCRIBER SOURCE 07/31/2018 VEE Vega Primary [facility] [id number] [facility] FOXDOB: [facility] [id number] [id number]: (330) Number: Repository [phone] () [id number] Date:8328-16-01[address] [address]DE: CHECK WEBSITE 07/31/2018 Secondary NOT GIVENUNK [place] Insurance:SELF PAY [facility] Number: Effective Repository Date:2018-07-09 06/28/2018 VEE PRECIADOB: Primary VEE PRECIADOB: [facility] [id number] Insurance:[facility] [id number] [facility] Number: 0 [place], [place] [id number] [facility] [address]Lrn: (330) Date:3385-28-45Ndco 118[address]Srr: (330) Repository [phone] () Name:MANAGED CARE [phone] () 06/18/2018 VEE Vega Primary Insurance:[facility] VEE Vega Thao [id number] [facility] FOXDOB: [facility] [id number] Hospital [address]Jjj: (330) Number: Repository [phone] () [id number] Date:0543-87-64DQ [address], [place] [address]AJ: CHECK WEBSITE 06/18/2018 Secondary NOT GIVENUNK Thao Insurance:SELF PAY [facility] Number: Effective Repository Date:2018-06-07 06/14/2018 VEE L Primary Insurance:[facility] VEE L [place] [id number] [facility] FOXDOB: [facility] [id number] Hospital [address]Wwx: (330) Number: Repository [phone] () [id number] Date:8832-40-91RC [address], [place] [address]SM: CHECK WEBSITE 06/14/2018 Secondary NOT GIVENUNK Thao Insurance:SELF PAY [facility] Number: Effective Repository Date:2018-06-11 06/06/2018 VEE L Primary Insurance:[facility] VEE L [place] [id number] [facility] FOXDOB: [facility] [id number] Hospital [address]Agj: (330) Number: Repository [phone] () [id number] Date:6642-30-60QT [address] [address], [place] [address]BW: CHECK WEBSITE 06/06/2018 Secondary NOT GIVENUNK Thao Insurance:SELF PAY [facility] Number: Effective Repository Date:2018-05-30 05/31/2018 VEE L Primary Insurance:[facility] VEE L [place] [id number] [facility] FOXDOB: [facility] [id number] Hospital [address]Ixd: (330) Number: Repository [phone] () [id number] Date:2212-43-40CQ [address] [address], [place] [address]BZ: CHECK WEBSITE 05/31/2018 Secondary NOT GIVENUNK [place] Insurance:SELF PAY [facility] Number: Effective Repository Date:2018-05-24 05/07/2018 VEE ELINA Primary Insurance:[facility] VEE Ship[place] [id number] [facility] FOXDOB: [facility] [id number] Hospital [address]Vvk: (330) Number: Repository [phone] () [id number] Date:7562-38-25ZS [address] [address], [place] [address]SF: CHECK WEBSITE 05/07/2018 Secondary NOT GIVENUNK [place] Insurance:SELF PAY [facility] Number: Effective Repository Date:2018-05-07 05/07/2018 VEE ELINA Primary Insurance:[facility] VEE [place] [id number] [facility] FOXDOB: [facility] [id number] Hospital [address]Gxf: (330) Number: Repository [phone] () [id number] Date:3552-86-20MP [address] [address]FR[place], [place] [address]MH: CHECK WEBSITE 05/07/2018 Secondary NOT GIVENUNK Thao Insurance:SELF PAY [facility] Number: Effective Repository Date:2018-05-07 02/15/2018 VEE ELINA Primary Insurance:[facility] VEE [place] [id number] [facility] FOXDOB: [facility] [id number] Hospital [address]Ull: (330) Number: Repository [phone] () [id number] Date:2808-27-34LK [address] [address]VLHX[place], [place] [address]EM: CHECK WEBSITE 02/15/2018 Secondary NOT GIVENUNK [place] Insurance:SELF PAY [facility] Number: Effective Repository Date:2018-02-15 02/14/2018 VEE ELINA Primary Insurance:[facility] VEE ANTOINE Thao [id number] [facility] FOXDOB: [facility] [id number] Hospital [address]Uqs: (330) Number: Repository [phone] () [id number] Date:5438-00-62TH [address] [address], [place] [address]OI: CHECK WEBSITE 02/14/2018 Secondary NOT GIVENUNK [place] Insurance:SELF PAY [facility] Number: Effective Repository Date:2018-02-14 10/26/2017 VEE ANTOINE Primary Insurance:[facility] VEE ANTOINE [place] [id number] [facility] FOXDOB: [facility] 1907-13-35BHO Hospital [address]Rkj: (330) Number: Repository [phone] () [id number] Date:4081-98-96UJ [address] [address], [place] [address]JL: CHECK WEBSITE 10/26/2017 Secondary NOT GIVENUNK [place] Insurance:SELF PAY [facility] Number: Effective Repository Date:2017-10-26 09/18/2017 VEE ANTOINE Primary [facility] Thao [id number] [facility] FOXDOB: [facility] [id number] Hospital [address]Xpw: (330) Number: Repository [phone] () [id number] Date:6128-93-89AU [address] [address], [place] [address]FG: CHECK WEBSITE 09/18/2017 Secondary NOT GIVENUNK Thao Insurance:SELF PAY [facility] Number: Effective Repository Date:2017-09-18
--- NOTE | 2018-11-15 09:37 | HP.PT.NRP ---
HP - Discharge Summary (1) - Patient Information VEE BAZAN was seen in my office for initial evaluation on 07/11/18. The following Plan of Care was established for this patient: Initial Frequency: 2x /Week Initial Duration: 4 Weeks - Anticipated Interventions Patient/Client Instruction: Educate patient on: Condition, Plan of Care For the Purpose of:: To decrease pain, To increase ROM, To improve muscle performance and motor function, To improve ability to perform ADL's, To increase tolerance to activity/condition/position, To improve ability of physical actions for home/community/work/leisure, To improve health of tissue, To decrease soft tissue restriction, To increase flexibility/ROM, To improve ability to perform tasks related to life management Therapeutic Exercise to Include: Strength training, Postural training, Flexibilty training, Active ROM, Dynamic Lumbar Stabilization For the Purpose of:: To decrease pain, To increase ROM, To improve muscle performance and motor function, To improve ability to perform ADL's, To increase tolerance to activity/condition/position, To improve ability of physical actions for home/community/work/leisure, To improve health of tissue, To decrease soft tissue restriction, To increase flexibility/ROM, To improve ability to perform tasks related to life management TENS: Yes IF ES: Yes Cryotherapy (ice pack, ice massage): Yes Thermo therapy (hot pack): Yes Ultrasound (thermal/non thermal): Yes For the Purpose of:: To decrease pain, To increase ROM, To improve nutrient delivery to tissue, To increase oxygenation perfusion, To improve health of tissue, To decrease soft tissue restriction This patient was last seen in our office . Pertinent comments regarding their Physical therapy will appear below: Patient seen for PT for sprinx/mass in spine . Patient was to follow ups with surgeon at [facility] for possible surgical interventions At this point I will be discontinuing this patient from physical therapy. I would be happy to see this patient again in the future if found appropriate by the physician. Thank you! Jameel Yost, PT, Cert MDT, O[facility]
== END 2018-07-31 19:00 | disposition home or self-care (01) ==
LOC: PT 08:30
PROVIDERS: Family Provider Family Medicine; PCP Family Medicine
DX: G95.0 Syringomyelia and syringobulbia (principal); M89.9 Disorder of bone, unspecified
CPT/HCPCS: 97110; 97162

== ENCOUNTER → 2019-10-16 10:11 | Outpatient (CLI) | payer OTHER, SELFPAY ==
[2018-07-09 09:01] VITALS: BMI 48.9
--- NOTE | 2019-10-16 10:27 | MRI_ITS ---
STUDY: MRI CERVICAL SPINE WITHOUT CONTRAST REASON FOR EXAM: Female, 33 years old. yearly recheck for syrinx -- sharp pain mid thoracic TECHNIQUE: Standardized fat and water weighted pulse sequences were obtained in the sagittal and axial planes. COMPARISON: 06/14/2018 FINDINGS: Normal foramen magnum and brainstem-cervical cord junction. Normal craniovertebral junction. Normal anterior atlantoaxial articulation. Normal odontoid process. Normal cervical lordosis. Normal vertebral bodies and posterior osseous elements. C2-3: Normal endplates. Normal disc height, signal and morphology. Normal central canal and intervertebral neural foramina. C3-4: Normal endplates. Normal disc height, signal and morphology. Normal central canal and intervertebral neural foramina. C4-5: Normal endplates. Normal disc height, signal and morphology. Normal central canal and intervertebral neural foramina. C5-6: Normal endplates. Normal disc height, signal and morphology. Normal central canal and intervertebral neural foramina. C6-7: Normal endplates. Normal disc height, signal and morphology. Normal central canal and intervertebral neural foramina. C7-T1: Normal endplates. Normal disc height, signal and morphology. Normal central canal and intervertebral neural foramina. A small stable central cord syrinx is noted extending from the C5-6 level to the upper thoracic levels. Maximum diameter is less than 1 mm in the cervical cord. No associated cord expansion. Normal visualized soft tissue structures. MRI/Spine Cervical (Routine) IMPRESSION: A small stable central cord syrinx is noted extending from the C5-6 level to the upper thoracic levels. Maximum diameter is less than 1 mm in the cervical cord. No associated cord expansion. No significant disc disease. Electronically Signed: Aki Brar MD at 17:24 EST Tel , Service support ,
--- NOTE | 2019-10-16 10:28 | MRI_ITS ---
STUDY: MRI THORACIC SPINE WITHOUT CONTRAST REASON FOR EXAM: Female, 33 years old. yearly recheck for syrinx -- sharp pain mid thoracic TECHNIQUE: Standardized fat and water weighted pulse sequences were obtained in the sagittal and axial planes. COMPARISON: 06/14/2018 FINDINGS: Normal kyphosis of the thoracic spine. There is no substantial scoliosis. T1-2, T2-3, T3-4, T4-5, T5-6, T8-9, T9-10, T10-11, T11-12: Normal endplates. Normal disc hydration, heights and morphology of the corresponding intervertebral discs. Normal central canal and intervertebral neural foramina at the corresponding levels. At T6-7, a disc osteophyte complex is present with minimal central canal stenosis. At T7-8, disc osteophyte complex is present without compressive sequelae. 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 The syrinx has a maximum diameter of 3 mm at the T7 level as measured on image 23 of series 7. No associated cord edema. Normal conus medullaris that terminates at the L1 level.. The soft tissue structures are unremarkable. 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 The syrinx has a maximum diameter of 3 mm at the T7 level. No associated cord edema. Multilevel degenerative disease as described. No exiting nerve root impingement. Electronically Signed: Aki Brar MD at 17:32 EST Tel , Service support ,
== END ==
PROVIDERS: PCP Family Medicine
DX: G95.0 Syringomyelia and syringobulbia (principal)
CPT/HCPCS: 72141; 72146

== ENCOUNTER → 2019-12-26 | Outpatient (CLI) | payer OTHER, SELFPAY ==
[2018-07-09 09:01] VITALS: BMI 48.9
[2019-12-26 12:58] LABS: Absolute Lymphocyte Count 2.36 X10^3/uL (0.83-4.51); Absolute Neutrophil Count 5.3 X10^3/uL (2.0-7.7); Basophil# 0.05 X10^3/uL; Basophil% 0.6 % (0-1); Eosinophil# 0.28 X10^3/uL; Eosinophils% 3.3 % (0-5); Hemoglobin 8.8 g/dL (12.0-15.0); Lymphocyte # 2.36 X10^3/ul (4.0); Lymphocyte % 27.5 % (19-41); Mean Corp Hgb Conc 27.5 g/dL (32-36); Mean Corpuscular Hgb 18.8 pg (27.0-32.0); Mean Corpuscular Volume 68.2 fL (81-99); Mean Platelet Vol. 10.1 fl (6.2-12.0); Monocyte# 0.56 X10^3/uL; Monocyte% 6.5 % (0-10); NRBC Flagged by Analyzer 0 % (0-5); Neutrophil # 5.27 X10^3/uL (2.7-7.7); Neutrophil % 61.5 % (47-70); Platelet Count 442 K/mm3 (150-450); RBC Distribution Width CV 17.3 % (11.6-14.6); RBC Distribution Width SD 41.1 fl (35.1-43.9); Red Blood Count 4.69 M/mm3 (4.2-5.4); White Blood Count 8.6 K/mm3 (4.4-11.0)
[2019-12-26 13:36] LABS: ALB/GLOB Ratio 0.8 RATIO (0.9-2.4); AST(SGOT) 14 U/L (15-37); Alanine Aminotransfer ALT/SGPT 19 U/L (13-56); Albumin, Serum 3.4 g/dL (3.2-5.0); Alkaline Phosphatase 112 U/L (45-117); Anion Gap 8 (5-15); BUN 12 mg/dL (7-18); BUN/Creat Ratio 16.7 RATIO (10-20); Calcium,Total 8.7 mg/dL (8.5-10.1); Chloride 105 mmol/L (98-107); Creatinine, Serum 0.72 mg/dL (0.55-1.02); EST Glomerular Filtration Rate 98 mL/min (>60); Est Glom Filt Rate - Afr Amer 119 mL/min (>60); Free T3 2.8 pg/mL (2.18-3.98); Glucose 149 mg/dL (74-106); Potassium 3.7 mmol/L (3.5-5.1); Protein, Total 7.4 g/dL (6.4-8.2); Sodium Level 139 mmol/L (136-145); T4 Free Direct 0.84 ng/dL (0.76-1.46); Thyroid Stim Hormone (TSH) 0.91 uIU/mL (0.358-3.74)
--- OUTSIDE RECORDS SUMMARY | 2020-05-26 10:33 | XMS RPT_ITS | CCD ---
:1985 External Reference #:[id number] Author Organization [employer] Care Team Providers Name Role Phone Unavailable Unavailable Unavailable Cara Luz LPN Unavailable Unavailable Malys, A Unavailable John Luz LPN Unavailable Unavailable Malys, A Primary Care Provider Charly KRAUS Attending Unavailable Charly KRAUS Referring Unavailable MALYS, A Primary Care Unavailable Charly KRAUS Attending Unavailable Charly KRAUS Referring Unavailable MALYS, A Primary Care Unavailable Charly KRAUS Attending Unavailable Charly KRAUS Referring Unavailable MALYS, A Primary Care Unavailable Allergies Reported Allergen Reaction(s) Severity Date of Onset Location acetaminophen / Mild, Mild 10-07-2015 - [facility] Now Clin ic HYDROcodone (07375) morphine 06-28-2018 - [facility] (12068) morphine Resp. alkalosis Severe, Severe 10-07-2015 - [facility] Now Cl inic (33304) Medications Current Medications Medication Name Sig Date Prescriber Location gabapentin gabapentin 100 MG Cap Historical Provider 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 0 Active Completed/Discontinuned Medications Medication Name Sig Date Prescriber Location Iohexol iohexol (OMNIPAQUE) 08-01-2018 - Luisa Wall [facility] 300 MG/ML vial 12 08-01-2018 [facility] (97932) Lidocaine lidocaine 1% (PF) 08-01-2018 - [facility] (XYLOCAINE MPF) 1 % 08-01-2018 [facility] injection 4 mL [facility] (45116) phentermine PHENTERMINE HCL 10-07-2015 - Ivelisse Villanueva [facility] Now C linic 37.5 MG TABS 1 po 01-01-2016 [employer] (15178) daily in the morning PHENTERMINE HCL [id number] Elisabet A Malys, DO phentermine / QSYMIA 11.25-69 MG 03-02-2016 Son A Flores DO [facility] Clinic topiramate [id number] One (30564) capsule by mouth daily PHENTERMINE-TOPIRAM ATE [id number] Son A Flores DO QSYMIA 11.25-69 MG [id number] One 03-02-2016 Son A Flores [facility] capsule by mouth daily DO (82109) PHENTERMINE-TOPIRAMATE [id number] Son A Flores DO QSYMIA 7.5-46 MG [id number] One 01-01-2016 Son A Flores W [facility] capsule by mouth daily DO (21789) PHENTERMINE-TOPIRAMATE [id number] Son A Flores DO QSYMIA 3.75-23 MG [id number] One 01-01-2016 Son A Flores [facility] capsule by mouth every morning DO ( 72876) PHENTERMINE-TOPIRAMATE [id number] Son A Flores DO QSYMIA 7.5-46 MG [id number] One 01-01-2016 - [facility] capsule by mouth daily 03-02-2016 (26641) PHENTERMINE-TOPIRAMATE [id number] Son A Flores DO QSYMIA 7.5-46 MG [id number] One 01-01-2016 Son A Flores [facility] capsule by mouth daily DO (05073) PHENTERMINE-TOPIRAMATE [id number] Son A Flores DO QSYMIA 3.75-23 MG [id number] One 01-01-2016 Son A Flores [facility] Now [facility] capsule by mouth every morning DO ( 57508) PHENTERMINE-TOPIRAMATE [id number] Son A Flores DO QSYMIA 7.5-46 MG [id number] One 01-01-2016 - W Now Clinic capsule by mouth daily 03-02-2016 (74904) PHENTERMINE-TOPIRAMATE [id number] Son Tanner DO predniSONE PREDNISONE 10 MG TABS 01-20-2017 - Viktor BENAVIDES [facility] Now Clinic 4 tablets daily for 3 02-01-2017 (31282 ) days, then 3 tablest daily for 3 days, then 2 tablets daily for 3 days, then 1 tablet daily for 3 days. PREDNISONE [id number] Viktor BENAVIDES Problems Active Problems Category Problem Name Status Date Location Other connective tissue Mass of musculoskeletal Active [facility] disease structure [facility] (83729) Other nervous system Syringomyelia Active [facility] (17572) Other nervous system Disorder of the central Active 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 [facility] disorders; other back [facility] (09349) Past or Other Problems Category Problem Name Status Date Location Allergic reactions Contact dermatitis Completed 01-20-2017 - [facility] Now [facility] due to plants (45192) Genitourinary symptoms Polyuria Completed 03-02-2016 - - [facility] Now Clinic and ill-defined 03-07-2016 - (51680) conditions Menstrual disorders Menorrhagia Completed 03-02-2016 - - [facility] No w Clinic 03-07-2016 - (64063) Results Result Name Value Range Unit Interpretation Flag Date Location dietition note on Dietition Note Chief Complaint Normal 0 [facility] A telephone visit (audio onl y) between the patient (at the originating site) and the provider (at the distant site) was utilized to provide this telehealth service. (19344) obesity [facility] Provider Impressions Patient Name: Vee Mckay Patient : 1985 Date: 05/05/2020 Required Visits Per Insurance Policy: 3 Visi t Number: 1 APPOINTMENT WAS CONDUCTED VIA PHONE PER COVID19 PROTOCOL AND PATIENT WEIGHT SELF REPORT Meal plans, food logs, goal sheets, and educatio n handout emailed to patient. S: Pt sates that she current ly taking phentermine for weight loss through her PCP. She had lost 50 pounds 2 years ago when she started taking phentermine. Pt states that 18 months ago a fluid filled sac k started growing on her spi ne. She was prescribed gabapentin which caused weight gain of 60 pounds. She states that she only eats between 4 pm and 8pm. Encouraged pt work on follow ing her meal plan and to eat 3 meals per day that include protein. suggested using resistance bands and chair yoga. O: Wt: 287.0 lb Ht: 64.2 in BMI: 49.0 Goal: 5% body weight loss over the course of program Dietary recommendation: 1. Eliminate high calorie, carbonated, and caffeinated bever ages 2. Practice the 30-30-30 rule by drinking between meals. 3. Structure your meal plan - have 3 meals and 1 snack daily . 4. Have balanced meals that always contain a good source of protein. 5. Increase intake of non-st archy vegetables. Have 5 servings fruits and vegetables daily. 6. Take a multivitamin daily. 7. Increase physical activit y by 10-15 minutes to an end goal of 60 minutes 5 x per week. Group Topic: Vitamins AND Minerals Behavioral recommendation: P t is encouraged to choose a variety of foods to promote a diverse nutrient profile, as well as supplementing one complete multivitamin every day to complement the profile of oral intake. A/P: Pt appears to have a go od understanding of the potential for micronutrient deficiencies and the importance of supplementing vitamins and minerals both pre- and post-weight loss surgery. Ms. Mckay has a goal to consume a balance d diet and supplement one multivitamin daily pre- op; secondary goal to prepare for post-op vitamin regimen. Exercise: none RD Signature: Radha Thomas RD, LD Signature: Dr. Mendez Antoine, FACS Patient Discussion/Summary Dietary recommendation: 1. Eliminate high calorie, carbonated, and caffeinated bever ages 2. Practice the 30-30-30 rule by drinking between meals. 3. Structure your meal plan - have 3 meals and 1 snack daily . 4. Have balanced meals that always contain a good source of protein. 5. Increase intake of non-st archy vegetables. Have 5 servings fruits and vegetables daily. 6. Take a multivitamin daily. 7. Increase physical activit y by 10-15 minutes to an end goal of 60 minutes 5 x per week. Group Topic: Vitamins AND Minerals Behavioral recommendation: P t is encouraged to choose a variety of foods to promote a diverse nutrient profile, as well as supplementing one complete multivitamin every day to complement the profile of oral intake. A/P: Pt appears to have a go od understanding of the potential for micronutrient deficiencies and the importance of supplementing vitamins and minerals both pre- and post-weight loss surgery. Ms. Mckay has a goal to consume a balance d diet and supplement one multivitamin daily pre- op; secondary goal to prepare for post-op vitamin regimen. Exercise: none RD Signature: Radha Thomas RD, JIM PLEITEZ Signature: Dr. Mendez Antoine, LISY Signatures Electronically signed by : Radha Thomas RD; May 05 2020 9: 53AM EST (Author) No panel information on 2019-11-05 Outside Imaging Study for Support 11-05-2019 [facility] of Clinical Care This study was ([id number]) [facility] an outside facility [facility] for support of clinical care of the patient within the [facility]. Outside Imaging Study for Support 11-05-2019 [facility] of Clinical Care This study was ([id number]) sent from an outside facility to [facility] for support of clinical care of the patient within the [facility] system. obsolete on 2019-07 OBSOLETE Refill (FAMPWS) Normal 08-13-2019 Aram oleary VEE Swan ([id number]) 1985 [facility] Date Time Provider Department (65474) 08/13/19 NELSON GRAHAM During your visit today, we recorded the following informati on about you: Allergies As of Date: 08/13/2019 Noted Allergy Reaction MORPHINE 09/22/2014 12 - Shortness of Breath Comments: respiration ankylosis DARVOCET A500 (PROPOXYPHENE N-DEBO*03/21/2008 8 - GI Upset Comments: abd pain, severe diarrhea TUBERCULIN PPD 12/13/2007 VICODIN (HYDROCODONE-ACETAMINOPHE*03/18/2008 Date Reviewed: 09/14/2015 Reviewed by: Zahra Torres Ma - Fully Assessed Reason for Visit: Refill Request [94] Prescriptions as of 08/13/2019 Sig: COMPOUNDED PRESCRIPTION Urodynamics studies for Polym* HYDROCHLOROTHIAZIDE 25 MG TAB* Take 1 tablet by mouth once d * DEXTROMETHORPHAN-GUAIFENESIN * Take 1 tablet by mouth twice * PHENAZOPYRIDINE 100 MG TABLET Take 1 tablet by mouth three * BENZONATATE 200 MG CAPSULE Take 200 mg by mouth twice da* ALBUTEROL SULFATE HFA 90 MCG/* Inhale 2 Puffs as instructed * Problem List As Of Date 08/13/2019 Noted Resolved Abdominal pain, right upper quadrant [R10.11] 03/18/200810/2012 More... Family history of congenital heart defect [Z82.*03/07/2012 More... ASCUS on Pap smear [R89.6] 03/21/2012 More... More... More... Obesity [E66.9] 01/29/2015 Encounter Status:Closed by ROBERTO HAJI on 08/13/19 No panel information on 2018-08-01 User, Interfaces - 08/01/2018 Invalid In terpretation Code 08-01-2018 RADIOLOGY 3:19 PM EST EXAM: CT SPINE CERVICAL THORACIC LUMBAR WITH CONTRAST, XR FLUORO MYELOGRAM ENTIRE SPINE, 08/01/2018 14:45 PM (accession [id number]), 08/01/2018 14:27 PM (accession [id number]) COMPARISON: Comparison is made to previous MRI of the entire spine dated 06/14/2018 from an outside facility. 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 The patient was placed prone on the fluoroscopy table. Lower back was prepped and draped in a sterile fashion. An appropriate timeout was performed. Skin was anesthetized with 1% lidocaine. Under fluoroscopic guidance lumbar puncture was performed at the L2-3 interspace level using a 20-gauge 6 inch spinal needle. Approximately 10 cc of Omnipaque 300 were introduced into the thecal sac. The needle was removed. Images lumbar spine were obtained. The patient was placed in Trendelenburg advancing the contrast column to the thoracic and subsequently cervical region were multiple images of the spine were again obtained. FINDINGS: There is no evidence of spinal stenosis. No myelographic block is demonstrated. Further evaluation will be performed on the post myelogram CT. Post myelogram CT of the cervical, thoracic and lumbar spine: TECHNIQUE: A series of transaxial multi-slice computerized tomographic thin-section source images of the cervical, thoracic and lumbosacral spine are obtained in a helical acquisition after intrathecal administration of contrast. Axial, coronal and sagittal reformats are provided. CONTRAST: iohexol (OMNIPAQUE) 300 MG/ML vial 12 mL; Route of Administration: Intra-articular; Dose: 12 mL. FINDINGS: Cervical: There is straightening of the cervical spine which in part could be positional. Alignment is otherwise satisfactory. Vertebral bodies are normal in height. Prevertebral and other paraspinal soft tissues are within normal limits. Intervertebral discs are within normal limits. No disc herniations are noted. There is no spinal or foraminal narrowing. Skull base and craniocervical junction is within normal limits. Thoracic: A mild kyphosis is noted measuring approximately 36 degrees. Alignment is otherwise satisfactory. Vertebral bodies are normal in height. Prevertebral and other paraspinal soft tissues are within normal limits. Intervertebral disc spaces are relatively well-maintained in height. There is evidence of mild osteophytic spurring anteriorly in the midthoracic region. At T6-7 as was noted on the previous MRI there is evidence of a disc herniation likely reflecting a disc protrusion which is central and to the right. Disc material appears to abut the anterior surface the cord. There is no spinal stenosis. There is also a small left-sided disc protrusion at T7-8 which is in close proximity to the anterior surface of the cord. The syrinx noted on MRI is not apparent on the myelogram or post myelogram CT. Lumbar: Alignment is normal. Vertebral bodies are normal in height. Prevertebral and other paraspinal soft tissues are within normal limits. Intervertebral discs are within normal limits. IMPRESSION IMPRESSION: 1. There is some straightening of the cervical spine which may in part be positional. The cervical spine is otherwise unremarkable. 2. Mild kyphosis of the upper thoracic spine is noted. There are disc herniations likely reflecting disc protrusions at T6-7 and T7-8 with the larger one at T6-7 where disc material abuts the anterior surface of the cord centrally and to the right. At T7-8 the protrusion is on the left and is in close proximity to the cord but does not abut the cord. 3. Normal lumbar spine. ESSION: 1. There is some Invalid In terpretation Code 08-01-2018 RADIOLOGY straightening of the cervical spine which may in part be positional. The cervical spine is otherwise unremarkable. 2. Mild kyphosis of the upper thoracic spine is noted. There are disc herniations likely reflecting disc protrusions at T6-7 and T7-8 with the larger one at T6-7 where disc material abuts the anterior surface of the cord centrally and to the right. At T7-8 the protrusion is on the left and is in close proximity to the cord but does not abut the cord. 3. Normal lumbar spine. : CT SPINE CERVICAL Invalid Interpr etation Code 08-01-2018 RADIOLOGY THORACIC LUMBAR WITH CONTRAST, XR FLUORO MYELOGRAM ENTIRE SPINE, 08/01/2018 14:45 PM (accession [id number]), 08/01/2018 14:27 PM (accession [id number]) COMPARISON: Comparison is made to previous MRI of the entire spine dated 06/14/2018 from an outside facility. 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 The patient was placed prone on the fluoroscopy table. Lower back was prepped and draped in a sterile fashion. An appropriate timeout was performed. Skin was anesthetized with 1% lidocaine. Under fluoroscopic guidance lumbar puncture was performed at the L2-3 interspace level using a 20-gauge 6 inch spinal needle. Approximately 10 cc of Omnipaque 300 were introduced into the thecal sac. The needle was removed. Images lumbar spine were obtained. The patient was placed in Trendelenburg advancing the contrast column to the thoracic and subsequently cervical region were multiple images of the spine were again obtained. FINDINGS: There is no evidence of spinal stenosis. No myelographic block is demonstrated. Further evaluation will be performed on the post myelogram CT. Post myelogram CT of the cervical, thoracic and lumbar spine: TECHNIQUE: A series of transaxial multi-slice computerized tomographic thin-section source images of the cervical, thoracic and lumbosacral spine are obtained in a helical acquisition after intrathecal administration of contrast. Axial, coronal and sagittal reformats are provided. CONTRAST: iohexol (OMNIPAQUE) 300 MG/ML vial 12 mL; Route of Administration: Intra-articular; Dose: 12 mL. FINDINGS: Cervical: There is straightening of the cervical spine which in part could be positional. Alignment is otherwise satisfactory. Vertebral bodies are normal in height. Prevertebral and other paraspinal soft tissues are within normal limits. Intervertebral discs are within normal limits. No disc herniations are noted. There is no spinal or foraminal narrowing. Skull base and craniocervical junction is within normal limits. Thoracic: A mild kyphosis is noted measuring approximately 36 degrees. Alignment is otherwise satisfactory. Vertebral bodies are normal in height. Prevertebral and other paraspinal soft tissues are within normal limits. Intervertebral disc spaces are relatively well-maintained in height. There is evidence of mild osteophytic spurring anteriorly in the midthoracic region. At T6-7 as was noted on the previous MRI there is evidence of a disc herniation likely reflecting a disc protrusion which is central and to the right. Disc material appears to abut the anterior surface the cord. There is no spinal stenosis. There is also a small left-sided disc protrusion at T7-8 which is in close proximity to the anterior surface of the cord. The syrinx noted on MRI is not apparent on the myelogram or post myelogram CT. Lumbar: Alignment is normal. Vertebral bodies are normal in height. Prevertebral and other paraspinal soft tissues are within normal limits. Intervertebral discs are within normal limits. No panel information on 2018-06-28 Outside Imaging Invalid Interpretation 1 08-28-2017 [facility]'s Study for Support of [facility] Clinical Care This ( 44481) study was sent [facility] an outside facility [facility] support of clinical care of the patient within the [facility]. Outside Imaging Invalid Interpretation 1 08-28-2017 [facility]'s Study for Support of [facility] Clinical Care This ( 47774) study was sent from an outside facility [facility] for support of clinical care of the patient within the [facility]. Outside Imaging Invalid Interpretation 1 08-28-2017 [facility]'s Study for Support of [facility] Clinical Care This ( 82262) study was sent from an outside facility [facility] for support of clinical care of the patient within the [facility]. Outside Imaging Invalid Interpretation 1 08-28-2017 [facility]'s Study for Support of [facility] Clinical Care This ( [id number]) study was sent from an outside facility [facility] for support of clinical care of the patient within the [facility]. office visit: uc: poison birdie on 2017-01-20 Documentation of Done Invalid 01-20-2017 [facility] Now current medications Interpretation Code 01-20-2017 Clinic (procedure) (80925) Tobacco smoking Never Invalid 01-20-2017 - W Now status NHIS Interpretation Code 01-21-20 17 Clinic (35502) Tobacco use CPHS Former Invalid 01-20-2017 [facility] Now smoker Interpretation Code 01-20-2017 Clinic (84420) Vital Signs Vital Sign Description Value / Unit Date Location The following section is limited to 5 en tries per type and includes entries from the following time range: 20170120 - [id number] 5. BMI (Body Mass Index) 48.06 kg/m2 11-15-2018 [facility] (29752) BMI (Body Mass Index) 44.93 kg/m2 01-20-2017 - 01-20-2017 [facility] Now Clinic (81847) Body Temperature 97.7 [degF] 08-01-2018 [facility]'s [facility] (89125) Body Temperature 98.2 [degF] 01-20-2017 - 01-20-2017 [facility] Now Clinic (33092) BP Diastolic 63 mm[Hg] 08-01-2018 [facility]'s [facility] (50320) BP Diastolic 67 mm[Hg] 06-28-2018 [facility]'s [facility] (08567) BP Diastolic 66 mm[Hg] 01-20-2017 - 01-20-2017 [facility] Now Clinic (68215) BP Systolic 136 mm[Hg] 08-01-2018 [facility]'s [facility] (66334) BP Systolic 131 mm[Hg] 06-28-2018 [facility] (27551) BP Systolic 104 mm[Hg] 01-20-2017 - 01-20-2017 [facility] Now Clinic (73440) BSA (Body Surface Area) 2.21 m2 03-02-2016 - 03-02-2016 [facility] Now Clinic (62318) Height 162.6 cm 06-28-2018 [facility]'s [facility] (40503) Height 165.1 cm 01-20-2017 - 01-20-2017 [facility] Now Clinic (14574) Pulse (Heart Rate) 64 /min 08-01-2018 [facility] (42312) Pulse (Heart Rate) 84 /min 06-28-2018 [facility] (89353) Pulse (Heart Rate) 69 /min 01-20-2017 - 01-20-2017 [facility] N ow Clinic (02535) Pulse Oximetry 99 % 08-01-2018 [facility]'s [facility] (56920) Pulse Oximetry 99 % 01-20-2017 - 01-20-2017 [facility] Now Clinic (09218) Respiratory Rate 18 /min 08-01-2018 [facility] (14507) Respiratory Rate 16 /min 01-20-2017 - 01-20-2017 [facility] (44467) Weight 127.01 kg 06-28-2018 [facility] (68225) Weight 122.47 kg 01-20-2017 - 01-20-2017 [facility] Now Clinic (38212) Encounters Date Type Reason Provider Location 10-16-2019 Evaluation and JEAN Parks Facility:[facility] management [facility] Office consultation Disorder of the Jean Parks [facility] omprehensive 06-28-2018 new/estab patient 40 central nervous [facility] min system Comment: Syrinx; Mass of spine; Anter ior spinal artery compression syndrome 06-26-2018 - 06-26-2018 Patient encounter Syringomyelia Karlene Nayan Central Scheduling Comment: Syrinx of spinal cord (Prima ry Dx) 12-03-2019 Patient JEAN Parks Facility:[facility] encounter [facility] procedure JEAN BALES 09-21-2018 - Patient Other Other [facility] 09-21-2018 encounter [facility] procedure Center 08-17-2018 - Patient Paresthesia of Jaquelin A [facility] Comprehen [facility]ive Spine 08-17-2018 encounter [facility] procedure Comment: Paresthesia of hand, bilater al (Primary Dx) 08-01-2018 - Patient encounter Jean Kraus Ambu latory Surgery 08-01-2018 procedure Unit Comment: No Show 08-01-2018 - Patient encounter Disorder of the Jean Parks Departm ent of 08-01-2018 procedure central nervous [facility] Radiology system Comment: Arrived Canceled (Scheduling Error) Syrinx; Mass of spine; Anter ior spinal artery compression syndrome 07-03-2018 - 07-03-2018 Patient encounter Ayush P anel N/S procedure 06-14-2018 - 06-14-2018 Patient encounter Jena Mendez ssbach Outside Imaging procedure 05-31-2018 - 05-31-2018 Patient encounter Jean Mendez ssbach Outside Imaging procedure Other Other Other Other 05-07-2018 - 05-07-2018 Patient encounter Other Other NOTES/RESULTS procedure 10-16-2019 - 10-16-2019 Subsequent hospital Jean carroll Outside Imaging visit by physician Procedures Procedure Name Date Provider Location MRI CERVICAL, THORACIC, 10-16-2019 Jean Kraus [facility] LUMBAR (OUTSIDE IMAGE) CENTER ([id number]) MRI SPINE THORACIC 10-16-2019 Jean Kraus [facility] (OUTSIDE IMAGE) CENTER ([id number]) CT of whole spine with 08-01-2018 - Jean Kraus [place] contrast 08-01-2018 [facility] ([id number]) Fluoroscopic myelogram 08-01-2018 - Jean Kraus [place] 08-01-2018 [facility] ([id number]) GENERAL PROCEDURE 08-01-2018 - Oneyda Hatfield [facility] 08-01-2018 [facility] ([id number]) MRI SPINE LUMBAR (OUTSIDE 06-14-2018 - [place] [facility] 06-14-2018 [facility] ([id number]) MRI SPINE THORACIC 06-14-2018 - Jean Kraus [facility] (OUTSIDE IMAGE) 06-14-2018 [facility] ([id number]) MRI SPINE CERVICAL 06-14-2018 - Jean Kraus [facility] (OUTSIDE IMAGE) 06-14-2018 [facility] ([id number]) MRI (OUTSIDE) 06-14-2018 - Historical Provider [place] 06-14-2018 [facility] ([id number]) MRI SPINE CERVICAL 05-31-2018 - Jean Kraus [facility] (OUTSIDE IMAGE) 05-31-2018 [facility] ([id number]) MRI (OUTSIDE) 05-31-2018 - Other Other [place] 05-31-2018 [facility] ([id number]) OUTSIDE RADIOLOGY 05-07-2018 - Other Other [facility] 05-07-2018 [facility] ([id number]) Plan of Treatment Plan Description Date Location Office Visit 12/03/2019 Office Visit 12-03-2019 - Comprehe nsive Spine Neurologic Surgery 12-03-2019 Center Outpat ient Care Jean Kraus MD [address] [id number] INFLUENZA VACCINE (#1) INFLUENZA VACCINE (#1) 2019 - [facility] 04-14-2019 [facility] ([id number]) EMG & NERVE CONDUCTION EMG & NERVE CONDUCTION 08-17-2018 - [facility]'s Routine [facility]aresthesia [facility]17-[facility] ([id number]) Expected: 08/17/2018, Expires: 08/17/2019 Comment: Expected: 08/17/2018, s: 08/17/2019 Appointment no information 08-01-2018 - Ambulatory Surge ry 08-01-[address] SPINE CERVICAL CT SPINE CERVICAL 06-28-2018 - 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 compression syndrome Syrinx Mass of spine Expected: 06/28/2018, Expires: 06/28/2019 Comment: Expected: 06/28/2018, s: 06/28/2019 XR FLUORO MYELOGRAM XR FLUORO MYELOGRAM 06-28-2018 - [facility] CERVICAL ONLY CERVICAL ONLY Routine 06-28-2019 [facility] Syrinx Mass of spine [facility] ([id number]) Anterior spinal artery compression syndrome Expected: 06/28/2018, Expires: 06/28/2019 Comment: Expected: 06/28/2018, s: 06/28/2019 XR FLUORO MYELOGRAM XR FLUORO MYELOGRAM 06-28-2018 - [facility] THORACIC/LUMBAR THORACIC/LUMBAR Routine 06-28-2019 [facility] Syrinx Mass of spine Medical [facility] ter Anterior spinal artery (40299) compression syndrome Expected: 06/28/2018, Expires: 06/28/2019 Comment: Expected: 06/28/2018, s: 06/28/2019 MRI SPINE CERVICAL MRI SPINE CERVICAL 06-28-2018 - [facility] WITHOUT CONTRAST WITHOUT CONTRAST 06-28-2019 [facility] Routine Mass of spine ([id number]) Syrinx Anterior spinal artery compression syndrome Expected: 06/28/2018, Expires: 06/28/2019 Comment: Expected: 06/28/2018, s: 06/28/2019 MRI SPINE THORACIC MRI SPINE THORACIC 06-28-2018 - [facility] WITHOUT CONTRAST WITHOUT CONTRAST 06-28-2019 [facility] Routine Syrinx Mass of (06725) spine Anterior spinal artery compression syndrome Expected: 06/28/2018, Expires: 06/28/2019 Comment: Expected: 06/28/2018, s: 06/28/2019 Office Visit 06/28/2018 Office 06-28-2018 - [facility] Visit Neurologic 06-28-2018 Spine Center Surgery Jean Kraus MD [address] [place] [address] INFLUENZA VACCINE INFLUENZA VACCINE (#1) 2018 - [place] [facility] [place] (#1) 04-14-2018 [facility] ( [id number]) Appointment Appointment 01-20-2017 - [facility] ( [id number]) 01-20-2017 PAP SMEAR DISCUSSION no information 2005 - [facility] 2005 [facility] ( [id number]) TDAP (ADULT) TDAP (ADULT) 11-05-2003 - [facility] 11-05-2003 [facility] ( [id number]) TETANUS TETANUS 2002 - [facility] 2002 [facility] ( [id number]) HIV SCREENING HIV SCREENING 1997 - [facility] DISCUSSION DISCUSSION 1997 [facility] ( [id number]) GENERAL PROCEDURE GENERAL PROCEDURE 08-01-2018 [facility] Routine Once for 1 [facility] Occurrences starting Medical [address] ter ([id number]) 08/01/2018 until 08/01/2018, 1 completed Comment: Once for 1 Occurrences start ing 08/01/2018 until 08/01/2018, 1 completed Payers Payer Name Policy Number Location MMO NETWORK ACCESS [id number] [facility] ([id number]) MMO NETWORK ACCESS, [employer] [facility] [id number] [facility] ([id number]) [id number] [facility] ([id number]) [id number] [facility] y [facility] ([id number]) The following information is from the original human readable contentNo Payer Records FoundNo Payer Records FoundNo Payer Records Found Social History Type Social History Date Location Description Tobacco smoking status Unknown if ever smoked [facility] ([id number]) Sex Assigned At Not on file [facility] ([id number]) Tobacco smoking status Never smoker 06-28-2018 - [place] [facility] 06-28-2018 [facility] ([id number]) Alcohol intake Current non-drinker of 06-28-2018 - [facility] (finding) 06-28-2018 [facility] ([id number]) The following information is from the original human readable contentNo Social History Records FoundNo Social History Records FoundNo Social History Records FoundNo Social History Records FoundNo Social History Records Found Reason for Referral Status Reason Specialty Diagnoses / Referred By Referred To Procedures Contact Contact New Request Spine Diagnoses Syrinx of spinal cord Elisabet Bales, [address] [place] [address] Status Reason Specialty Diagnoses / Procedures Referred By C ontact Referred To Contact Closed Diagnoses Anterior spinal artery compression syndrome Syrinx Mass of spine Jean Kraus Procedures CT SPINE CERVICAL THORACIC LUMBAR WITH CONTRAST CT SPINE CERVICAL THORACIC LUMBAR WITHOUT CONTRAST TX CT SCAN,CERVICAL SPINE,W/O CONTRAST TX CT SCAN,THORACIC SPINE,W/O CONTRAST TX CT SCAN,LUMBAR SPINE,W/O CONTRAST MD Charly [place] CT SCAN CERV SPINE CONTRAST TX CT SCAN DORSAL SP CONTRAST TX CT SCAN LUMBAR SP CONTRAST [address] [place] [address] Phone: Status Reason Specialty Diagnoses / Referred By Referred To Procedures Contact Contact New Request Diagnoses Syrinx Mass of spine Anterior spinal artery compression syndrome Jean Kraus Procedures XR FLUORO MYELOGRAM CERVICAL ONLY MD Charly [address] [place] [address] Status Reason Specialty Diagnoses / Referred By Referred To Procedures Contact Contact New Request Diagnoses Syrinx Mass of spine Anterior spinal artery compression syndrome Jean Kraus Procedures XR FLUORO MYELOGRAM THORACIC/LUMBAR MD Charly [address] [place] [address] Status Reason Specialty Diagnoses / Referred By Referred To Procedures Contact Contact New Request Diagnoses Anterior spinal artery compression syndrome Syrinx Mass of spine Jean Kraus Procedures CT SPINE CERVICAL THORACIC LUMBAR WITHOUT CONTRAST TX CT SCAN,CERVICAL SPINE,W/O CONTRAST TX CT SCAN,THORACIC SPINE,W/O CONTRAST TX CT SCAN,LUMBAR SPINE,W/O CONTRAST MD Charly [address] [place] [address] Status Reason Specialty Diagnoses / Referred By Referred To Procedures Contact Contact New Request Diagnoses Syrinx Mass of spine Anterior spinal artery compression syndrome Jean Kraus Procedures MRI SPINE THORACIC WITHOUT CONTRAST TX MRI, DORSAL SPINE MD Charly [address] [place] [address] Status Reason Specialty Diagnoses / Referred By Referred To Procedures Contact Contact New Request Diagnoses Mass of spine Syrinx Anterior spinal artery compression syndrome Jean Kraus Procedures MRI SPINE CERVICAL WITHOUT CONTRAST TX MRI, CERV SPINE MD Charly [address] [place] [address] Status Reason Specialty Diagnoses / Referred By Referred To Procedures Contact Contact New Request Physical Therapy Diagnoses Syrinx Mass of spine Anterior spinal artery compression syndrome Jean Kraus MD [address] [place] [address] Scheduling Instructions [facility] [address] [place] [address] Fax [facility] (Neck and Back Therapy) [address] [place], [place] [address] FAX [facility] [address] [address] FAX [facility] [address] [place], [place] [address] FAX [facility] [address] [place] [address] FAX Physical Therapy at [facility] [address] [phone] FAX [facility] [address] [place] [address] [phone] FAX [facility] [address] [place], [place] [address] [phone] FAX Status Reason Specialty Diagnoses / Referred By Referred To Procedures Contact Contact New Request Diagnoses Syrinx Mass of spine Anterior spinal artery compression syndrome Jean Kraus Procedures XR FLUORO MYELOGRAM ENTIRE SPINE XR FLUORO MYELOGRAM THORACIC/LUMBAR MD Charly [address] [place] [phone] Status Reason Specialty Diagnoses / Referred By Contact Refe rred To Procedures Contact New Request Diagnoses Paresthesia of hand, bilateral Odin, Jaquelin Procedures EMG & NERVE CONDUCTION Killian PA-C [address] [place], [place] [address] Phone: Assessments Diagnosis 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 Diagnosis Syrinx Other myelopathy Mass of spine Anterior spinal artery compression syndr ome Cervical spondylosis with myelopathy Diagnosis Syrinx Other myelopathy Mass of spine Anterior spinal artery compression syndr ome Cervical spondylosis with myelopathy Diagnosis Anterior spinal artery compression syndr ome Cervical spondylosis with myelopathy Syrinx Other myelopathy Mass of spine Diagnosis Syrinx Other myelopathy Mass of spine Anterior spinal artery compression syndr ome Cervical spondylosis with myelopathy Diagnosis Syrinx Other myelopathy Mass of spine Anterior spinal artery compression syndr ome Cervical spondylosis with myelopathy Diagnosis Paresthesia of hand, bilateral - Primary History of Present Illness Lydia Kendall - 08/01/2018 2:27 PM ESTFormatting of this note may be different from the original. Patient Information: Weight: 180lbs Code Status: No prior IV: none Switch Cleaner: Zander Mckay () Phone Number: [phone] Procedure Information: Exam: Entire Spine Myelogram: Needle In: 13:52 Needle Out: 13:55 Contrast dose: 12 mL Omnipaque 300 mgI/mL Attending: Jessica Fellow: RATNA Resident: RATNA RA: Alysia Patient Summary: Pre Pain: 4 Post Pain: 3 Things To Do: Report Handoff: CT: yes Time: 14:22 CT to RPR RPR to CT Radiation Oncology: No Discharge Time: 15:55 in this encounter Discharge Instructions Elisabet Huang RN - 08/01/2018 Myelogram A myelogram is a special x-ray test used to view the space around your spinal cord. It is done to check for problems affecting the spinal cord and nerves. Care After the Myelogram ? Have an adult with you to take you home after the test. For your safety, you may not drive yourself home, go home alone or use public transportation without someone to go with you. ? If you have diabetes, and take Metformin (Glucophage, Fortamet, Glucophage XR, Glumetza, Riomet), or any medicine with metformin in it: Restart the medicine on the third day or 48 hours after the test, unless you have been told differently by your doctor. ? Test results will be sent to your doctor, who will share the results with you. ? When you go home, you need to sit in bed with your head up for 6 to 8 hours. ? Drink 8 to 10 glasses of liquids, especially water and caffeinated beverages, over the next 24 hours to replace the fluid removed during the test. This will also reduce the chance of a headache and remove the contrast medicine from your body ? If you have a headache, take a non-prescription pain reliever such as acetaminophen (Tylenol) or ibuprofen (Advil, Motrin). Follow the directions on the product?s label for use. ? Have a family member or friend stay with you the day of the procedure. ? Rest and limit your activity until the next day. Do not drive, operate heavy machinery or make important decisions until the next day. When to Call Your Doctor Although problems from this test are rare, they can occur. Call your doctor right away if you have any of these signs: ? Severe headache ? Have numbness, loss of feeling or problems with movement in arms or legs ? Feel confused or less alert ? Swelling, warmth or redness at the needle injection site ? Bleeding that will not stop at the injection site ? Drainage of a clear fluid at the injection site ? Seizure or convulsions ? Weakness ? Vomiting that will not stop If your doctor is not available and you are having problems, call 911 or go to the nearest emergency room. Interventional Radiology Contact Information If you have questions or concerns, please call Interventional Radiology at in this encounter Summary Purpose Family History No Family History Records FoundNo Family History Records FoundNo Family History Records Found Advance Directives No Advanced Directives Records FoundNo Advanced Directives Records FoundNo Advanced Directives Records Found Additional Source Comments FOR RECORDS PERTAINING TO PATIENTS WHO ARE OR HAVE BEEN ENROLLED IN A CHEMICAL DEPENDENCY/SUBSTANCE ABUSE PROGRAM, SOME INFORMATION MAY BE OMITTED. This clinical summary was aggregated from multiple sources. Caution should be exercised in using it in the provision of clinical care. This summary normalizes information from multiple sources, and as a consequence, information in this document may materially changethe coding, format and clinical context of patient data. In addition, data may be omittedin some cases. CLINICAL DECISIONS SHOULD BE BASED ON THE PRIMARY CLINICAL RECORDS. [facility] provides no warranty or guarantee of the accuracy or completeness of information in this document. UNRECOGNIZED CONTENT PROVIDED BELOW FOR UNRECOGNIZED SECTION Reason for Visit Status Reason Specialty Diagnoses / Referred By Referred To Procedures Contact Contact New Request Diagnoses Syrinx Mass of spine Anterior spinal artery compression syndrome Jean Kraus Procedures XR FLUORO MYELOGRAM ENTIRE SPINE XR FLUORO MYELOGRAM THORACIC/LUMBAR MD Charly [address] [place] [address] Status Reason Specialty Diagnoses / Procedures Referred By C ontnorm Referred To Contact Closed Diagnoses Syrinx Mass of spine Anterior spinal artery compression syndrome Jean Kraus Procedures XR FLUORO MYELOGRAM CERVICAL ONLY MD Charly [address] [place] [address] Phone: Status Reason Specialty Diagnoses / Procedures Referred By C ontact Referred To Contact Closed Diagnoses Anterior spinal artery compression syndrome Syrinx Mass of spine Jean Kraus Procedures CT SPINE CERVICAL THORACIC LUMBAR WITH CONTRAST CT SPINE CERVICAL THORACIC LUMBAR WITHOUT CONTRAST TX CT SCAN,CERVICAL SPINE,W/O CONTRAST TX CT SCAN,THORACIC SPINE,W/O CONTRAST TX CT SCAN,LUMBAR SPINE,W/O CONTRAST MD Charly [place] CT SCAN CERV SPINE CONTRAST TX CT SCAN DORSAL SP CONTRAST TX CT SCAN LUMBAR SP CONTRAST [address] [place] [address] Phone: Reason Comments New Patient Status Reason Specialty Diagnoses / Referred By Referred To Procedures Contact Contact New Request Neurologic Surgery Diagnoses Syrinx Elisabet Bales, DO [address] [place] [address] UNRECOGNIZED CONTENT PROVIDED BELOW FOR UNRECOGNIZED SECTION INFORMATION SOURCE DATE CREATED AUTHOR AUTHOR'S ORGANIZATIO N 08/13/2019 [facility] DATE CREATED AUTHOR AUTHOR'S ORGANIZATIO N 12/03/2019 [facility] DATE CREATED AUTHOR AUTHOR'S ORGANIZATIO N 05/05/2020 [employer]
== END | disposition home or self-care (01) ==
LOC: LAB.FUTURE 11:29 → LAB 11:32
PROVIDERS: PCP Family Medicine; Referring Provider Family Medicine; Visit Provider Family Medicine
DX: D50.9 Iron deficiency anemia, unspecified (principal); R53.83 Other fatigue; Z51.81 Encounter for therapeutic drug level monitoring
CPT/HCPCS: 36415; 80053; 84439; 84443; 84481; 85025

== ENCOUNTER → 2020-01-14 | Outpatient (CLI) | payer OTHER, SELFPAY ==
[2020-01-14 09:38] VITALS: BMI 48.9
--- NOTE | 2020-01-14 09:45 | RAD_ITS ---
STUDY: X-RAY - PELVIS AND LEFT HIP REASON FOR EXAM: Female, 34 years old. FELL LAST NIGHT, HIP PAIN TECHNIQUE: 3 views of the pelvis and hip. COMPARISON: None. FINDINGS: There is a non-specific bowel gas pattern. ESSURE devices are seen within the pelvis. Normal bilateral iliac wings, sacroiliac joints and visualized sacrum. Normal bilateral superior and inferior pubic rami. Normal pubic symphysis. Normal bilateral ischial tuberosities. Normal visualized femoral head. Normal acetabulum. Normal hip joint. RAD/HIP, UNI W/ Pelvis 2-3 Views IMPRESSION: Normal x-ray examination of the pelvis and hip. Electronically Signed: Hugo Avila, at 11:06 EDT , Service support ,
--- NOTE | 2020-01-14 09:45 | RAD_ITS ---
STUDY: X-RAY - LEFT KNEE REASON FOR EXAM: Female, 34 years old. FELL LAST NIGHT, KNEE PAIN TECHNIQUE: 4 view(s) of the knee. COMPARISON: None. FINDINGS: Normal visualized distal femur. Normal visualized proximal tibia and fibula. Normal proximal tibiofibular articulation. Normal medial femorotibial compartment. Normal lateral femorotibial compartment. Normal patellofemoral articulation. The soft tissue structures are unremarkable. RAD/Knee 4 or More Views IMPRESSION: Normal x-ray examination of the knee. Electronically Signed: Hugo Avila, at 11:06 EDT , Service support ,
--- OUTSIDE RECORDS SUMMARY | 2020-05-31 06:18 | XMS RPT_ITS | CCD ---
:1985 External Reference #:[id number] Author Organization [employer] Care Team Providers [...] Location acetaminophen / Mild, Mild 10-07-2015 - [facility] Now Clin ic HYDROcodone (39010) morphine 06-28-2018 - [facility] (83486) morphine Resp. alkalosis Severe, Severe 10-07-2015 - [facility] Now Cl inic (06095) Medications Current Medications Medication Name Sig Date Prescriber Location gabapentin gabapentin 100 MG Cap Historical Provider [facility] capsule Indications: 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 0 Active Completed/Discontinuned Medications Medication Name Sig Date Prescriber Location Iohexol iohexol (OMNIPAQUE) 08-01-2018 - Luisa Wall [facility] 300 MG/ML vial 12 08-01-2018 [facility] (59329) Lidocaine lidocaine 1% (PF) 08-01-2018 - [facility] (XYLOCAINE MPF) 1 % 08-01-2018 [facility] injection 4 mL [facility] (89724) phentermine PHENTERMINE HCL 10-07-2015 - Ivelisse Villanueva [facility] Now C linic 37.5 MG TABS 1 po 01-01-2016 [facility] (83719) daily in the morning PHENTERMINE HCL [id number] Elisabet A Malys, DO phentermine / QSYMIA 11.25-69 MG 03-02-2016 Son A Flores DO [facility] topiramate [id number] One (76488) capsule by mouth daily PHENTERMINE-TOPIRAM ATE [id number] Son A Flores DO QSYMIA 11.25-69 MG [id number] One 03-02-2016 Son A Flores [facility] capsule by mouth daily DO (57271) PHENTERMINE-TOPIRAMATE [id number] Son A Flores DO QSYMIA 7.5-46 MG [id number] One 01-01-2016 Son A Flores W [facility] capsule by mouth daily DO (79841) PHENTERMINE-TOPIRAMATE [id number] Son A Flores DO QSYMIA 3.75-23 MG [id number] One 01-01-2016 Son A Flores [facility] capsule by mouth every morning DO ( 68267) PHENTERMINE-TOPIRAMATE [id number] Son A Flores DO QSYMIA 7.5-46 MG [id number] One 01-01-2016 - [facility] capsule by mouth daily 03-02-2016 (07689) PHENTERMINE-TOPIRAMATE [id number] Son A Flores DO QSYMIA 7.5-46 MG [id number] One 01-01-2016 Son A Flores [facility] capsule by mouth daily DO (72266) PHENTERMINE-TOPIRAMATE [id number] Son A Flores DO QSYMIA 3.75-23 MG [id number] One 01-01-2016 Son A Flores [facility] capsule by mouth every morning DO ( 32497) PHENTERMINE-TOPIRAMATE [id number] Son A Flores DO QSYMIA 7.5-46 MG [id number] One 01-01-2016 - W Now Clinic capsule by mouth daily 03-02-2016 (95858) PHENTERMINE-TOPIRAMATE [id number] Son Tanner DO predniSONE PREDNISONE 10 MG TABS 01-20-2017 - Viktor BENAVIDES [facility] Now Clinic 4 tablets daily for 3 02-01-2017 (29328 ) days, then 3 tablest daily for 3 days, then 2 tablets daily for 3 days, then 1 tablet daily for 3 days. PREDNISONE [id number] Viktor BENAVIDES Problems Active Problems Category Problem Name Status Date Location Other connective tissue Mass of musculoskeletal Active [facility] disease structure [facility] (28475) Other nervous system Syringomyelia Active [facility] toscano [facility] (18338) Other nervous system Disorder of the central Active [facility] disorders nervous system [facility] (14210) Other nervous system Paresthesia of hand Active [facility] (67344) Other nutritional; Excessive thirst Active 10-07-2015 - [facility] N ow Clinic endocrine; and metabolic - 03-05-2016 (44 691) disorders - Spondylosis; 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 (29179) Past or Other Problems Category Problem Name Status Date Location Allergic reactions Contact dermatitis Completed 01-20-2017 - [facility] Now [facility] due to plants (04983) Genitourinary symptoms Polyuria Completed 03-02-2016 - - [facility] Now Clinic and ill-defined 03-07-2016 - (35419) conditions Menstrual disorders Menorrhagia Completed 03-02-2016 - - [facility] No w Clinic 03-07-2016 - (72280) Results Result Name Value Range Unit Interpretation Flag Date Location dietition note on Dietition Note Chief Complaint Normal 0 [facility] A telephone visit (audio onl y) between the patient (at the originating site) and the provider (at the distant site) was utilized to provide this telehealth service. (56829) obesity [facility] Provider Impressions Patient Name: Vee [...] 2019-11-05 Outside Imaging Study for Support 11-05-2019 [facility] This study was (06331) sent from an outside facility to [facility] for support of clinical care of the patient within the [facility]. Outside Imaging Study for Support 11-05-2019 [facility] Clinical [facility] This study was (06676) sent from an outside facility to [facility] for support of clinical care of the patient within the [facility] system. obsolete on 2019-07 OBSOLETE Refill (FAMPWS) Normal 08-13-2019 Aram oleary VEE Swan ([id number]) 1985 [facility] Date Time Provider Department (91450) 08/13/19 NELSON GRAHAM During your visit today, [...] MYELOGRAM ENTIRE SPINE, 08/01/2018 14:45 PM (accession [id number]), 08/01/2018 14:27 PM (accession [id number]) COMPARISON: Comparison is made to previous MRI of the entire spine dated 06/14/2018 from an outside facility. CLINICAL INDICATIONS: 32 years Female Anterior spinal artery compression syndrome; RELEVANT CLINICAL HISTORY: M47.019:Anterior spinal artery compression syndrome G95.0:Syrinx M89.9:Mass of spine (accession [id number]), G95.0:Syrinx M89.9:Mass of spine M47.019:Anterior spinal artery compression syndrome (accession [id number]) Myelogram of the entire spine: TECHNIQUE: Informed [...] MYELOGRAM ENTIRE SPINE, 08/01/2018 14:45 PM (accession [id number]), 08/01/2018 14:27 PM (accession [id number]) COMPARISON: Comparison is made to previous MRI of the entire spine dated 06/14/2018 from an outside facility. CLINICAL INDICATIONS: 32 years Female Anterior spinal artery compression syndrome; RELEVANT CLINICAL HISTORY: M47.019:Anterior spinal artery compression syndrome G95.0:Syrinx M89.9:Mass of spine (accession [id number]), G95.0:Syrinx M89.9:Mass of spine M47.019:Anterior spinal artery compression syndrome (accession [id number]) Myelogram of the entire spine: TECHNIQUE: Informed [...] Hospital's Study for Support of [facility] Clinical Care This ( 24454) study was sent from an outside facility to [facility] for support of clinical care of the patient within the [facility]. Outside Imaging Invalid Interpretation 1 08-28-2017 [facility]'s Study for Support of [facility] Clinical Care This ( 54882) study was sent from an outside facility to [facility] for support of clinical care of the patient within the [facility]. Outside Imaging Invalid Interpretation 1 08-28-2017 [facility]'s Study for Support of [facility] Clinical Care This ( 42355) study was sent from an outside facility to [facility] for support of clinical care of the patient within the [facility]. Outside Imaging Invalid Interpretation 1 08-28-2017 [facility]'s Study for Support of [facility] Clinical Care This ( 04641) study was sent from an outside facility to [facility] for support of clinical care of the patient within the [facility]. office visit: uc: poison birdie on 2017-01-20 Documentation of Done Invalid 01-20-2017 [facility] Now current medications Interpretation Code 01-20-2017 Clinic (procedure) (92622) Tobacco smoking Never Invalid 01-20-2017 - W Now status NHIS Interpretation Code 01-21-20 17 Clinic (89239) Tobacco use CPHS Former Invalid 01-20-2017 [facility] Now smoker Interpretation Code 01-20-2017 Clinic (32144) Vital Signs Vital Sign Description Value / Unit Date Location The following section is limited to 5 en tries per type and includes entries from the following time range: 20170120 - 20180614 5. BMI (Body Mass Index) 48.06 kg/m2 11-15-2018 [facility] (29280) BMI (Body Mass Index) 44.93 kg/m2 01-20-2017 - 01-20-2017 [facility] Now Clinic (39772) Body Temperature 97.7 [degF] 08-01-2018 [facility]'s [facility] (77023) Body Temperature 98.2 [degF] 01-20-2017 - 01-20-2017 [facility] Now Clinic (20598) BP Diastolic 63 mm[Hg] 08-01-2018 [facility]'s [facility] (37319) BP Diastolic 67 mm[Hg] 06-28-2018 [facility]'s [facility] (33246) BP Diastolic 66 mm[Hg] 01-20-2017 - 01-20-2017 [facility] Now Clinic (19532) BP Systolic 136 mm[Hg] 08-01-2018 [facility]'s [facility] (76407) BP Systolic 131 mm[Hg] 06-28-2018 [facility] (72124) BP Systolic 104 mm[Hg] 01-20-2017 - 01-20-2017 [facility] Now Clinic (58659) BSA (Body Surface Area) 2.21 m2 03-02-2016 - 03-02-2016 [facility] Now Clinic (66113) Height 162.6 cm 06-28-2018 [facility]'s [facility] (37498) Height 165.1 cm 01-20-2017 - 01-20-2017 [facility] Now Clinic (72841) Pulse (Heart Rate) 64 /min 08-01-2018 [facility] (25177) Pulse (Heart Rate) 84 /min 06-28-2018 [facility] (54461) Pulse (Heart Rate) 69 /min 01-20-2017 - 01-20-2017 [facility] N ow Clinic (39429) Pulse Oximetry 99 % 08-01-2018 [facility]'s [facility] (15262) Pulse Oximetry 99 % 01-20-2017 - 01-20-2017 [facility] Now Clinic (99680) Respiratory Rate 18 /min 08-01-2018 [facility] (11396) Respiratory Rate 16 /min 01-20-2017 - 01-20-2017 [facility] Clinic (36547) Weight 127.01 kg 06-28-2018 [facility] (72622) Weight 122.47 kg 01-20-2017 - 01-20-2017 [facility] Now Clinic (41310) Encounters Date Type Reason Provider Location 10-16-2019 Evaluation and JEAN Parks Facility:[facility] - Office consultation Disorder of the Jean Parks [facility] omprehensive 06-28-2018 new/estab patient 40 central nervous [facility] min system Comment: Syrinx; Mass of spine; Anter ior spinal artery compression syndrome 06-26-2018 - 06-26-2018 Patient encounter Syringomyelia Karlene Nayan Central Scheduling Comment: Syrinx of spinal cord (Prima ry Dx) 12-03-2019 Patient JEAN Parks Facility:[facility] encounter [facility] procedure JEAN BALES 09-21-2018 - Patient Other Other [facility] 09-21-[address] [facility] procedure Center 08-17-2018 - Patient Paresthesia of Jaquelin A [facility] Comprehen [facility]ive Spine 08-17-2018 encounter [facility] procedure Comment: Paresthesia of hand, bilater al (Primary Dx) 08-01-2018 - Patient encounter Jean Kraus Ambu latory Surgery 08-01-2018 procedure Unit Comment: No Show 08-01-2018 - Patient encounter Disorder of the Jean Parks Departm ent of 08-01-2018 procedure central nervous [facility] Radiology system Comment: Arrived Canceled (Scheduling Error) Syrinx; Mass of spine; Anter ior spinal artery compression syndrome 07-03-2018 - 07-03-2018 Patient encounter Ayush P anel N/S procedure 06-14-2018 - 06-14-2018 Patient encounter Jean Mendez ssbach Outside Imaging procedure 05-31-2018 - 05-31-2018 Patient encounter Jean Mendez ssbach Outside Imaging procedure Other Other Other Other 05-07-2018 - 05-07-2018 Patient encounter Other Other NOTES/RESULTS procedure 10-16-2019 - 10-16-2019 Subsequent hospital Jean carroll Outside Imaging visit by physician Procedures Procedure Name Date Provider Location MRI CERVICAL, THORACIC, 10-16-2019 Jean Kraus [facility] LUMBAR (OUTSIDE IMAGE) CENTER (4 1450) MRI SPINE THORACIC 10-16-2019 Jean Kraus [facility] (OUTSIDE IMAGE) CENTER (64681) CT of whole spine with 08-01-2018 - Jean Kraus [place] contrast 08-01-2018 [facility] (99442) Fluoroscopic myelogram 08-01-2018 - Jean Kraus [place] 08-01-2018 [facility] (14539) GENERAL PROCEDURE 08-01-2018 - Oneyda Hatfield [facility] 08-01-2018 [facility] (30019) MRI SPINE LUMBAR (OUTSIDE 06-14-2018 - [place] IM[place] 06-14-2018 [facility] (74326) MRI SPINE THORACIC 06-14-2018 - Jean Kraus [facility] (OUTSIDE IMAGE) 06-14-2018 [facility] (73756) MRI SPINE CERVICAL 06-14-2018 - Jean Kraus [facility] (OUTSIDE IMAGE) 06-14-2018 [facility] (36682) MRI (OUTSIDE) 06-14-2018 - Historical Provider [place] 06-14-2018 [facility] (61710) MRI SPINE CERVICAL 05-31-2018 - Jean Kraus [facility] (OUTSIDE IMAGE) 05-31-2018 [facility] (44467) MRI (OUTSIDE) 05-31-2018 - Other Other [place] 05-31-2018 [facility] (46767) OUTSIDE RADIOLOGY 05-07-2018 - Other Other [facility] 05-07-2018 [facility] (16099) Plan of Treatment Plan Description Date Location Office Visit 12/03/2019 Office Visit 12-03-2019 - Comprehe nsive Spine Neurologic Surgery 12-03-2019 Center Outpat ient Care Jean Kraus MD [address] [phone] INFLUENZA VACCINE (#1) INFLUENZA VACCINE (#1) 2019 - [facility] 04-14-2019 C[facility] (82809) EMG & NERVE CONDUCTION EMG & NERVE CONDUCTION 08-17-2018 - [facility]'s Routine Paresthesia [facility]-17-[facility], bilateral (00384) Expected: 08/17/2018, Expires: 08/17/2019 Comment: Expected: 08/17/2018, s: 08/17/2019 Appointment no information 08-01-2018 - Ambulatory Surge ry 08-01-[address] SP[address]ERV[address] SPINE CERVICAL 06-28-2018 - [facility] THORACIC LUMBAR THORACIC LUMBAR 06-28-2019 [facility] WITHOUT CONTRAST WITHOUT CONTRAST Medical [place] Routine Anterior (32595) spinal artery compression syndrome Syrinx Mass of spine Expected: 06/28/2018, Expires: 06/28/2019 Comment: Expected: 06/28/2018, s: 06/28/2019 XR FLUORO MYELOGRAM XR FLUORO MYELOGRAM 06-28-2018 - [facility] te CERVICAL ONLY CERVICAL ONLY Routine 06-28-2019 [facility] Syrinx Mass of spine Medical [facility] (76052) Anterior spinal artery compression syndrome Expected: 06/28/2018, Expires: 06/28/2019 Comment: Expected: 06/28/2018, s: 06/28/2019 XR FLUORO MYELOGRAM XR FLUORO MYELOGRAM 06-28-2018 - [facility] te THORACIC/LUMBAR THORACIC/LUMBAR Routine 06-28-2019 [facility] Syrinx Mass of spine Medical [facility] ter Anterior spinal artery (18353) compression syndrome Expected: 06/28/2018, Expires: 06/28/2019 Comment: Expected: 06/28/2018, s: 06/28/2019 MRI SPINE CERVICAL MRI SPINE CERVICAL 06-28-2018 - [facility] WITHOUT CONTRAST WITHOUT CONTRAST 06-28-2019 [facility] Routine Mass of spine (66406) Syrinx Anterior spinal artery compression syndrome Expected: 06/28/2018, Expires: 06/28/2019 Comment: Expected: 06/28/2018, s: 06/28/2019 MRI SPINE THORACIC MRI SPINE THORACIC 06-28-2018 - [facility] WITHOUT CONTRAST WITHOUT CONTRAST 06-28-2019 [facility] Routine Syrinx Mass of (74774) spine Anterior spinal artery compression syndrome Expected: 06/28/2018, Expires: 06/28/2019 Comment: Expected: 06/28/2018, s: 06/28/2019 Office Visit 06/28/2018 Office 06-28-2018 - [facility] Comprehens leonardo Visit Neurologic 06-28-2018 Spine Center Surgery Jean Kraus MD [address] [place] [address] INFLUENZA VACCINE INFLUENZA VACCINE (#1) 2018 [place] [address] ate (#1) 04-14-2018 [facility] ( 96010) Appointment Appointment 01-20-2017 - [facility] Now Clinic ( 16137) 01-20-2017 PAP SMEAR DISCUSSION no information 2005 - [facility] 2005 [facility] ( 29420) TDAP (ADULT) TDAP (ADULT) 11-05-2003 - [facility] 11-05-2003 [facility] ( 69737) TETANUS TETANUS 2002 - [facility] 2002 [facility] ( 88291) HIV SCREENING HIV SCREENING 1997 - [facility] DISCUSSION DISCUSSION 1997 [facility] ( 76699) GENERAL PROCEDURE GENERAL PROCEDURE 08-01-2018 [facility] Routine Once for 1 [facility] Occurrences starting Medical [address] (02027) 08/01/2018 until 08/01/2018, 1 completed Comment: Once for 1 Occurrences start ing 08/01/2018 until 08/01/2018, 1 completed Payers Payer Name Policy Number Location MMO NETWORK ACCESS [id number] [facility] ([id number]) MMO NETWORK ACCESS, [employer] [facility] [id number] [facility] ([id number]) [id number] [facility] ([id number]) [id number] [facility] y [facility] ([id number]) The following information is from the original human readable contentNo Payer Records FoundNo Payer Records FoundNo Payer Records Found Social History Type Social History Date Location Description Tobacco smoking status Unknown if ever smoked [facility] (35895) Sex Assigned At Not on file [facility] (69483) Tobacco smoking status Never smoker 06-28-2018 - [place] [facility] 06-28-2018 [facility] (86919) Alcohol intake Current non-drinker of 06-28-2018 - [facility] alcohol (finding) 06-28-2018 [place] (07206) The following information is from the original human readable contentNo Social History Records FoundNo Social History Records FoundNo Social History Records FoundNo Social History Records FoundNo Social History Records Found Reason for Referral Status Reason Specialty Diagnoses / Referred By Referred To Procedures Contact Contact New Request Spine Diagnoses Syrinx of spinal cord Elisabet Bales, [address] [place] [address] Status Reason Specialty Diagnoses / Procedures Referred By C ontact Referred To Contact Closed Diagnoses Anterior spinal artery compression syndrome Syrinx Mass of spine Jean Kraus Procedures CT SPINE CERVICAL THORACIC LUMBAR WITH CONTRAST CT SPINE CERVICAL THORACIC LUMBAR WITHOUT CONTRAST UT CT SCAN,CERVICAL SPINE,W/O CONTRAST UT CT SCAN,THORACIC SPINE,W/O CONTRAST UT CT SCAN,LUMBAR SPINE,W/O CONTRAST MD Charly UT CT SCAN CERV SPINE CONTRAST UT CT SCAN DORSAL SP CONTRAST UT CT SCAN LUMBAR SP CONTRAST [address] [place] [address] Phone: Status Reason Specialty Diagnoses / Referred By Referred To Procedures Contact Contact New Request Diagnoses Syrinx Mass of spine Anterior spinal artery compression syndrome Jean Kraus Procedures XR FLUORO MYELOGRAM CERVICAL ONLY MD Charly [address] [place] [address] Status Reason Specialty Diagnoses / Referred By Referred To Procedures Contact Contact New Request Diagnoses Syrinx Mass of spine Anterior spinal artery compression syndrome Jean Kraus Procedures XR FLUORO MYELOGRAM THORACIC/LUMBAR MD Charly [address] [place] [address] Status Reason Specialty Diagnoses / Referred By Referred To Procedures Contact Contact New Request Diagnoses Anterior spinal artery compression syndrome Syrinx Mass of spine Jean Kraus Procedures CT SPINE CERVICAL THORACIC LUMBAR WITHOUT CONTRAST UT CT SCAN,CERVICAL SPINE,W/O CONTRAST UT CT SCAN,THORACIC SPINE,W/O CONTRAST UT CT SCAN,LUMBAR SPINE,W/O CONTRAST MD Charly [address] [place] [address] Status Reason Specialty Diagnoses / Referred By Referred To Procedures Contact Contact New Request Diagnoses Syrinx Mass of spine Anterior spinal artery compression syndrome Jean Kraus Procedures MRI SPINE THORACIC WITHOUT CONTRAST UT MRI, DORSAL SPINE MD Charly [address] [place] [address] Status Reason Specialty Diagnoses / Referred By Referred To Procedures Contact Contact New Request Diagnoses Mass of spine Syrinx Anterior spinal artery compression syndrome Jean Kraus Procedures MRI SPINE CERVICAL WITHOUT CONTRAST UT MRI, CERV SPINE MD Charly [address] [place] [address] Status Reason Specialty Diagnoses / Referred By Referred To Procedures Contact Contact New Request Physical Therapy Diagnoses Syrinx Mass of spine Anterior spinal artery compression syndrome Jean Kraus MD [address] [place] [address] Scheduling Instructions [facility] [address] [facility] [place] [address] Fax [facility] (Neck and Back Therapy) [address] [place], [place] [address] FAX [facility] [address] [address] FAX [facility] [address] [place], [place] [address] FAX [facility] [address] [place] [address] FAX Physical Therapy at [facility] [address] [phone] FAX [facility] [address] [place] [address] [phone] FAX [facility] [address] [place], [place] [address] [phone] FAX Status Reason Specialty Diagnoses / Referred By Referred To Procedures Contact Contact New Request Diagnoses Syrinx Mass of spine Anterior spinal artery compression syndrome Jean Kraus Procedures XR FLUORO MYELOGRAM ENTIRE SPINE XR FLUORO MYELOGRAM THORACIC/LUMBAR MD Charly [address] [place] [address] Status Reason Specialty Diagnoses / Referred By Contact Refe rred To Procedures Contact New Request Diagnoses Paresthesia of hand, bilateral Odin, Jaquelin Procedures EMG & NERVE CONDUCTION Killian PA-C [address] [place], [place] [address] Phone: Assessments Diagnosis Syrinx of spinal cord [...] 180lbs Code Status: No prior IV: none Compensation Supervisor: Zander Mckay () Phone Number: [phone] Procedure Information: Exam: Entire Spine Myelogram: Needle [...] BE BASED ON THE PRIMARY CLINICAL RECORDS. [facility] provides no warranty or guarantee of [...] XR FLUORO MYELOGRAM THORACIC/LUMBAR MD Charly [address] [place] [address] Status Reason Specialty Diagnoses / Procedures Referred By C ontnorm Referred To Contact Closed Diagnoses Syrinx Mass of spine Anterior spinal artery compression syndrome Jean Kraus Procedures XR FLUORO MYELOGRAM CERVICAL ONLY MD Charly [address] [place] [address] Phone: Status Reason Specialty Diagnoses / Procedures Referred By C ontact Referred To Contact Closed Diagnoses Anterior spinal artery compression syndrome Syrinx Mass of spine Jean Kraus Procedures CT SPINE CERVICAL THORACIC LUMBAR WITH CONTRAST CT SPINE CERVICAL THORACIC LUMBAR WITHOUT CONTRAST UT CT SCAN,CERVICAL SPINE,W/O CONTRAST UT CT SCAN,THORACIC SPINE,W/O CONTRAST UT CT SCAN,LUMBAR SPINE,W/O CONTRAST MD Charly UT CT SCAN CERV SPINE CONTRAST UT CT SCAN DORSAL SP CONTRAST UT CT SCAN LUMBAR SP CONTRAST [address] [place] [address] Phone: Reason Comments New Patient Status Reason Specialty Diagnoses / Referred By Referred To Procedures Contact Contact New Request Neurologic Surgery Diagnoses [facility] Elisabet Bales, DO [address] [place] [address] UNRECOGNIZED CONTENT PROVIDED BELOW FOR UNRECOGNIZED SECTION INFORMATION SOURCE DATE CREATED AUTHOR AUTHOR'S ORGANIZATIO N 08/13/2019 [facility] DATE CREATED AUTHOR AUTHOR'S ORGANIZATIO N 12/03/2019 [facility] DATE CREATED AUTHOR AUTHOR'S ORGANIZATIO N 05/05/2020 [facility] Contact
== END | disposition home or self-care (01) ==
LOC: HPRAD 09:45
PROVIDERS: PCP Family Medicine; Referring Provider Physician Assistant Surgical; Visit Provider Physician Assistant Surgical
DX: S86.912A Strain of unspecified muscle(s) and tendon(s) at lower leg level, left leg, initial encounter (principal); S70.12XA Contusion of left thigh, initial encounter; S70.02XA Contusion of left hip, initial encounter
CPT/HCPCS: 73502; 73564

== ENCOUNTER 2020-01-26 21:48 | Emergency (ER) | payer OTHER, SELFPAY ==
[2020-01-14 09:38] VITALS: BMI 48.9
[2020-01-26 21:49] VITALS: BP 154/91; PULSE 75; RESP 16; TEMP 36.7; O2SAT 100; BMI 51.2
--- NOTE | 2020-01-26 22:09 | ED.VISSUMM ---
- ER Visit Summary Date of Service: 01/26/20 Chief Complaint: Sudden onset right lower quadrant abdominal pain History of Present Illness: The patient is a 34 F past medical history of spinal syrinx and anemia. Prior cholecystectomy and E sure procedure. Patient states about an hour ago she was at home and had sudden onset of right flank right lower quadrant abdominal pain. Denies any nausea, vomiting or diarrhea. No constipation or dysuria. Last menstrual period was 3 weeks ago. She denies any vaginal bleeding or discharge. No fever or chills. No trauma. She is never had pain like this before. Physical Examination: Female complaint of pain vital signs are stable and afebrile. HEENT exam unremarkable. Neck nontender. Lungs clear to auscultation bilaterally. Heart regular rhythm no murmur. Abdomen soft. Tender only in the right lower quadrant. Reproducible. Both the right upper and left quadrants are unremarkable. There is no hernia or mass. No distention. No signs of obstruction. No peritoneal signs. Patient moving all 4 extremities. Neurologically she is awake and alert with no focal motor deficits. Test Results: White count of 10. Hemoglobin 9.3 which is her baseline anemia. Electrolytes unremarkable and potassium of 5.8 which I think is hemolyzed. Normal kidney function with a BUN of 13 creatinine 0.7. Serum test negative. Urinalysis shows no nitrites but 25-50 white cells no red cells no epithelial cells and rare bacteria. Due to the white cells I did send a urine culture and is will be treated as a possible UTI. CAT scan abdomen pelvis initially ordered with contrast we did have an IV we did it without contrast. Read by the radiologist shows a normal appendix. No kidney stones or stones in the ureter. And questionable mesenteric adenitis that would also explain her pain. Emergency Department Course and Treatment: Patient with right lower quadrant abdominal pain with a sudden onset sounds more like a kidney stone however on exam is reproducible which would make me think more of an appendicitis. Obviously there are other etiologies possible. She will be treated with IV morphine, fluids, Toradol and Zofran. CAT scan labs are being obtained. Repeat exams patient is doing better after pain medications. They were given IM since we could not get an IV. She is doing much better on repeat exam at 2340. We discussed all of her test results. Treatment Plan: Treated as a potential UTI. Urine culture sent. Keflex 750 twice daily for 5 days. Stop antibiotic if urine culture comes back negative. Follow-up with your primary care physician. We also discussed the possibilities being mesenteric adenitis if that is the case it will resolve on its own. Tylenol Motrin for pain. Disposition: Discharge Impression: Acute right lower quadrant abdominal pain secondary to mesenteric adenitis Rule out urinary tract infection This note was generated with [employer] dictation software. It may contain incorrect words, spelling, and punctuation that were not noted in review of the chart prior to signing ED Disposition - Plan for ED Patient: Referrals: Elisabet Bales DO [Primary Care Provider] -
--- NOTE | 2020-01-26 22:29 | CT_ITS ---
STUDY: CT ABDOMEN AND PELVIS WITHOUT CONTRAST REASON FOR EXAM: Female, 34 years old. Sudden onset of right lower quadrant pain. RADIATION DOSAGE (If Supplied By Facility): CTDIvol = ( 23.99 ) mGy, DLP = ( 1348.77 ) mGycm TECHNIQUE: Transaxial images were obtained from the dome of the diaphragm to the symphysis pubis without oral contrast, and without intravenous contrast. Sagittal and coronal images were reconstructed. Individualized dose optimization techniques were used for this CT. COMPARISON: None. FINDINGS: The visualized lung bases are unremarkable. The visualized portions of the heart are within normal limits. Normal liver. Gallbladder not visualized consistent with a prior cholecystectomy. Normal spleen. Normal pancreas. Normal bilateral adrenal glands. Normal right kidney. Normal left kidney. Normal visualized stomach. Normal small intestine. Terminal ileum is normal. Normal colon. The appendix is visualized and appears normal, sagittal images 79 through 82, axial images 114 through 137 and coronal images 64 through 70. The appendix courses superiorly in the medial aspect of the right lower quadrant. Mild focal mesenteric stranding right upper quadrant medial to the hepatic flexure of uncertain clinical significance, coronal image 50 and axial image 78. Scattered subcentimeter lymph nodes right lower quadrant. Normal abdominal aorta. Normal inferior vena cava. Normal retroperitoneum. No intra-abdominal free air. Normal urinary bladder. Uterus grossly normal. No adnexal mass is seen. Postoperative changes compatible with bilateral tubal ligation. Normal abdominal wall. Normal osseous structures. CT/Abdomen/Pelvis without Cont IMPRESSION: Normal appendix. No hydronephrosis or urinary tract stones. Cecum and terminal ileum are grossly normal. Small lymph nodes right lower quadrant which may represent inflammation. Mild focal mesenteric soft tissue stranding right upper quadrant which may represent mesenteric adenitis. No evidence of bowel obstruction. Electronically Signed: Lino Sierra MD at 23:30 EDT , Service support ,
[2020-01-26] MEDS: Ondansetron ODT 4 MG Tablet PO (22:33)
[2020-01-26] MEDS: HYDROmorphone 1 MG/ML Syringe IM (22:34)
[2020-01-26] MEDS: Ketorolac 60 MG/2 ML Vial IM (22:34)
[2020-01-26 22:53] LABS: Absolute Lymphocyte Count 1.76 X10^3/uL (0.83-4.51); Absolute Neutrophil Count 7.5 X10^3/uL (2.0-7.7); Basophil# 0.09 X10^3/uL; Basophil% 0.8 % (0-1); Eosinophil# 0.22 X10^3/uL; Eosinophils% 2.1 % (0-5); Hematocrit 32.4 % (37-47); Hemoglobin 9.3 g/dL (12.0-15.0); Lymphocyte # 1.76 X10^3/ul (4.0); Lymphocyte % 16.6 % (19-41); Mean Corp Hgb Conc 28.7 g/dL (32-36); Mean Corpuscular Hgb 19.9 pg (27.0-32.0); Mean Corpuscular Volume 69.2 fL (81-99); Mean Platelet Vol. 10.2 fl (6.2-12.0); Monocyte# 0.88 X10^3/uL; Monocyte% 8.3 % (0-10); NRBC Flagged by Analyzer 0 % (0-5); Neutrophil # 7.47 X10^3/uL (2.7-7.7); Neutrophil % 70.5 % (47-70); POSITIVE MORPHOLOGY YES; Platelet Count 355 K/mm3 (150-450); RBC Distribution Width CV 21.4 % (11.6-14.6); RBC Distribution Width SD 47.8 fl (35.1-43.9); Red Blood Count 4.68 M/mm3 (4.2-5.4); White Blood Count 10.6 K/mm3 (4.4-11.0)
[2020-01-26 22:54] LABS: Differential Indicated SCAN CRITERIA MET
[2020-01-26 23:04] LABS: Internal QC Validated? YES +Cl - CLEAR BKGD; Pregnancy, Serum, hCG Quali. NEGATIVE Negative
[2020-01-26 23:11] LABS: Mucous, Urine 0 SEEN /hpf (<or=2+); Red Blood Cells-Urine 0 SEEN /hpf (0-5)
[2020-01-26 23:11] LABS: Anion Gap 9 (5-15); BUN 13 mg/dL (7-18); BUN/Creat Ratio 17.5 RATIO (10-20); Calcium,Total 9.1 mg/dL (8.5-10.1); Chloride 113 mmol/L (98-107); Creatinine, Serum 0.74 mg/dL (0.55-1.02); EST Glomerular Filtration Rate 95 mL/min (>60); Est Glom Filt Rate - Afr Amer 115 mL/min (>60); Estimated Creatinine Clearance 91.63 ml/min; Glucose 100 mg/dL (74-106); Potassium 5.8 mmol/L (3.5-5.1); Sodium Level 143 mmol/L (136-145)
[2020-01-26 23:12] LABS: Color, Urine Yellow (Yellow); Glucose, Dipstick Normal (Normal); Ketone-Dipstick 15 mg/dl (Negative); Leukocyte Esterase-Dipstick 500 /ul (Negative); Nitrite-Dipstick Negative (Negative); Occult Blood-Urine Negative /ul (Negative); Protein-Dipstick Negative (Negative); Urine Bilirubin Dipstick Negative (Negative); Urine Clarity Cloudy (Clear); Urine Urobilinogen 1 mg/dl (Normal)
[2020-01-26 23:19] LABS: Anisocytosis 4+; Differential Comment SCANNED; Platelet Estimate ADEQUATE (ADEQ); Platelet Morphology GIANT; Polychromasia RARE
[2020-01-26 23:19] LABS: White Blood Cells 25-50 SEEN /hpf (0-5)
[2020-01-26 23:20] LABS: Microcytosis 2+
[2020-01-26 23:20] LABS: Amorphous Sediment 1+ PHOS; Bacteria RARE /hpf (None Seen); Squamous Epithelial Cells - UA 0-5 SEEN /hpf (5-10)
[2020-01-26 23:21] LABS: Ovalocyte RARE
--- NOTE | 2020-01-26 23:44 | ED.DEP ---
ED Disposition - Plan for ED Patient: Disposition: Home or Assisted Living Instructions: ED CYSTITIS Female Adult, ED Adenitis Mesenteric Prescriptions: Cephalexin [Keflex] 750 mg PO BID #10 cap Prescription Printed Referrals: Elisabet Bales DO [Primary Care Provider] - 3-5 Days Additional Instructions: Pain secondary to mesenteric adenitis and possible UTI. We will send a urine culture. We will treat this as a urinary tract infection with the antibiotic Keflex 1 pill twice a day for 5 days. If the urine culture returns in 2 days and is negative you can stop the antibiotic. Tylenol and Motrin for pain. Your appendix was seen on the CAT scan it was normal. Also there were no signs of any kidney stones.
[2020-01-27] MEDS: Cephalexin 250 MG Capsule 750 MG PO (00:11)
[2020-01-27 00:16] VITALS: BP 128/78; PULSE 68; RESP 14; O2SAT 99
--- OUTSIDE RECORDS SUMMARY | 2020-05-31 13:20 | XMS RPT_ITS | CCD ---
:1985 External Reference #:[id number] Author Organization [employer] Care Team Providers [...] Location acetaminophen / Mild, Mild 10-07-2015 - [facility] Now Clin ic HYDROcodone (37801) morphine 06-28-2018 - [facility] (44595) morphine Resp. 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 (68430) daily in the morning PHENTERMINE HCL [id number] Elisabet A Malys, DO phentermine / QSYMIA 11.25-69 MG 03-02-2016 Son A Flores DO [facility] topiramate [id number] One (59590) capsule by mouth daily PHENTERMINE-TOPIRAM ATE [id number] Son A Flores DO QSYMIA 11.25-69 MG [id number] One 03-02-2016 Son A Flores [facility] capsule by mouth daily DO (83857) PHENTERMINE-TOPIRAMATE [id number] Son A Flores DO QSYMIA 7.5-46 MG [id number] One 01-01-2016 Son A Flores [facility] capsule by mouth daily DO (21726) PHENTERMINE-TOPIRAMATE [id number] Son A Flores DO QSYMIA 3.75-23 MG [id number] One 01-01-2016 Son A Flores [facility] capsule by mouth every morning DO ( 90101) PHENTERMINE-TOPIRAMATE [id number] Son A Flores DO QSYMIA 7.5-46 MG [id number] One 01-01-2016 - [facility] capsule by mouth daily 03-02-2016 (49326) PHENTERMINE-TOPIRAMATE [id number] Son A Flores DO QSYMIA 7.5-46 MG [id number] One 01-01-2016 Son A Florse [facility] capsule by mouth daily DO (82204) PHENTERMINE-TOPIRAMATE [id number] Son A Flores DO QSYMIA 3.75-23 MG [id number] One 01-01-2016 Son A Flores [facility] capsule by mouth every morning DO ( 43832) PHENTERMINE-TOPIRAMATE [id number] Son A Flores DO QSYMIA 7.5-46 MG [id number] One 01-01-2016 - W [facility] capsule by mouth daily 03-02-2016 (14373) PHENTERMINE-TOPIRAMATE [id number] Son Tanner DO predniSONE PREDNISONE 10 MG TABS 01-20-2017 - Viktor BENAVIDES [facility] Now Clinic 4 tablets daily for 3 02-01-2017 (12955 ) days, then 3 tablest daily for 3 days, then 2 tablets daily for 3 days, then 1 tablet daily for 3 days. PREDNISONE [id number] Viktor BENAVIDES Problems Active Problems Category Problem Name Status Date Location Other connective tissue Mass of musculoskeletal Active [facility] disease structure [facility] (28903) Other nervous system Syringomyelia Active [facility] (80158) Other nervous system Disorder of the central Active [facility] disorders nervous system 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 [facility] disorders; other back [facility] (11197) Past or Other Problems Category Problem Name Status Date Location Allergic reactions Contact dermatitis Completed 01-20-2017 - [facility] Now [facility] due to plants (62443) Genitourinary symptoms Polyuria Completed 03-02-2016 - - [facility] Now Clinic and ill-defined 03-07-2016 - (06825) conditions Menstrual disorders Menorrhagia Completed 03-02-2016 - - [facility] No w Clinic 03-07-2016 - (23652) Results Result Name Value Range Unit Interpretation Flag Date Location dietition note on Dietition Note Chief Complaint Normal 0 [facility] A telephone visit (audio onl y) between the patient (at the originating site) and the provider (at the distant site) was utilized to provide this telehealth service. (36118) obesity [facility] Provider Impressions Patient Name: Vee [...] 2019-11-05 Outside Imaging Study for Support 11-05-2019 [facility] of Clinical Care This study was (93328) sent from an outside facility to [facility] for support of clinical care of the patient within the [facility]. Outside Imaging Study for Support 11-05-2019 [facility] of Clinical Care This study was (06682) sent from an outside facility to [facility] for support of clinical care of the patient within the [facility] system. obsolete on 2019-07 OBSOLETE Refill (FAMPWS) Normal 08-13-2019 Aram oleary VEE Swan ([id number]) 1985 [facility] Date Time Provider Department (92037) 08/13/19 NELSON GRAHAM During your visit today, [...] MYELOGRAM ENTIRE SPINE, 08/01/2018 14:45 PM (accession [id number]), 08/01/2018 14:27 PM (accession [id number]) COMPARISON: Comparison is made to previous MRI of the entire spine dated 06/14/2018 from an outside facility. CLINICAL INDICATIONS: 32 years Female Anterior spinal artery compression syndrome; RELEVANT CLINICAL HISTORY: M47.019:Anterior spinal artery compression syndrome G95.0:Syrinx M89.9:Mass of spine (accession [id number]), G95.0:Syrinx M89.9:Mass of spine M47.019:Anterior spinal artery compression syndrome (accession [id number]) Myelogram of the entire spine: TECHNIQUE: Informed [...] MYELOGRAM ENTIRE SPINE, 08/01/2018 14:45 PM (accession [id number]), 08/01/2018 14:27 PM (accession [id number]) COMPARISON: Comparison is made to previous MRI of the entire spine dated 06/14/2018 from an outside facility. CLINICAL INDICATIONS: 32 years Female Anterior spinal artery compression syndrome; RELEVANT CLINICAL HISTORY: M47.019:Anterior spinal artery compression syndrome G95.0:Syrinx M89.9:Mass of spine (accession [id number]), G95.0:Syrinx M89.9:Mass of spine M47.019:Anterior spinal artery compression syndrome (accession [id number]) Myelogram of the entire spine: TECHNIQUE: Informed [...] 2018-06-28 Outside Imaging Invalid Interpretation 1 08-28-2017 [facility]'s Study for Support of [facility] Clinical Care This ( 49403) study was sent from an outside facility to [facility] for support of clinical care of the patient within the [facility]. Outside Imaging Invalid Interpretation 1 08-28-2017 [facility] Study for Support of [facility] Clinical Care This ( 36604) study was sent from an outside facility to [facility] for support of clinical care of the patient within the [facility]. Outside Imaging Invalid Interpretation 1 08-28-2017 [facility] Study for Support of [facility] Clinical Care This ( 04152) study was sent from an outside facility to [facility] for support of clinical care of the patient within the [facility]. Outside Imaging Invalid Interpretation 1 08-28-2017 [facility] Study for Support of [facility] Clinical Care This ( 39428) study was sent from an outside facility to [facility] for support of clinical care of the patient within the [facility]. office visit: uc: poison birdie on 2017-01-20 Documentation of Done Invalid 01-20-2017 [facility] Now current medications Interpretation Code 01-20-2017 Clinic (procedure) (83630) Tobacco smoking Never Invalid 01-20-2017 - W Now status NHIS Interpretation Code 01-21-20 17 Clinic (04485) Tobacco use CPHS Former Invalid 01-20-2017 [facility] Now smoker Interpretation Code 01-20-2017 Clinic (13303) Vital Signs Vital Sign Description Value / Unit Date Location The following section is limited to 5 en tries per type and includes entries from the following time range: 20170120 - 20180614 5. BMI (Body Mass Index) 48.06 kg/m2 11-15-2018 [facility] (54767) BMI (Body Mass Index) 44.93 kg/m2 01-20-2017 - 01-20-2017 [facility] Now Clinic (54908) Body Temperature 97.7 [degF] 08-01-2018 [facility] (63715) Body Temperature 98.2 [degF] 01-20-2017 - 01-20-2017 [facility] Now Clinic (59740) BP Diastolic 63 mm[Hg] 08-01-2018 [facility] (19927) BP Diastolic 67 mm[Hg] 06-28-2018 [facility] (07289) BP Diastolic 66 mm[Hg] 01-20-2017 - 01-20-2017 [facility] Now Clinic (95739) BP Systolic 136 mm[Hg] 08-01-2018 [facility] (57428) BP Systolic 131 mm[Hg] 06-28-2018 [facility] (45653) BP Systolic 104 mm[Hg] 01-20-2017 - 01-20-2017 [facility] Now Clinic (71128) BSA (Body Surface Area) 2.21 m2 03-02-2016 - 03-02-2016 [facility] Now Clinic (49031) Height 162.6 cm 06-28-2018 [facility] (66812) Height 165.1 cm 01-20-2017 - 01-20-2017 [facility] Now Clinic (19005) Pulse (Heart Rate) 64 /min 08-01-2018 [facility] (99336) Pulse (Heart Rate) 84 /min 06-28-2018 [facility] (49320) Pulse (Heart Rate) 69 /min 01-20-2017 - 01-20-2017 [facility] N ow Clinic (77496) Pulse Oximetry 99 % 08-01-2018 [facility] (92574) Pulse Oximetry 99 % 01-20-2017 - 01-20-2017 [facility] Now Clinic (75940) Respiratory Rate 18 /min 08-01-2018 [facility] (15963) Respiratory Rate 16 /min 01-20-2017 - 01-20-2017 [facility] (96345) Weight 127.01 kg 06-28-2018 [facility] (76552) Weight 122.47 kg 01-20-2017 - 01-20-2017 [facility] Now Clinic (89903) Encounters Date Type Reason Provider Location 10-16-2019 Evaluation and JEAN Parks [facility] - Office consultation Disorder of the Jean Parks [facility] C omprehensive 06-28-2018 new/estab patient 40 central nervous [facility] min system Comment: Syrinx; Mass of spine; Anter ior spinal artery compression syndrome 06-26-2018 - 06-26-2018 Patient encounter Syringomyelia Karlene Nayan Central Scheduling Comment: Syrinx of spinal cord (Prima ry Dx) 12-03-2019 Patient JEAN Parks Facility:[facility] encounter [facility] procedure JEAN BALES 09-21-2018 - Patient Other Other [facility] 09-21-2018 encounter [facility] procedure Center 08-17-2018 - Patient Paresthesia of Jaquelin A [facility] Comprehen sive Spine 08-17-2018 encounter [facility] procedure Comment: Paresthesia of hand, bilater al (Primary Dx) 08-01-2018 - Patient encounter Jean Kraus Ambu latory Surgery 08-01-2018 procedure Unit Comment: No Show 08-01-2018 - Patient encounter Disorder of the Jean Parks Departm ent of 08-01-2018 procedure central nervous [facility] Radiology system Comment: Arrived Canceled (Scheduling [...] MRI CERVICAL, THORACIC, 10-16-2019 Jean Kraus [facility] LUMBAR (OUTSIDE IMAGE) CENTER (4 5330) MRI SPINE THORACIC 10-16-2019 Jean Kraus [facility] (OUTSIDE IMAGE) CENTER (10366) CT of whole spine with 08-01-2018 - Jean Kraus [place] contrast 08-01-2018 [facility] (54003) Fluoroscopic myelogram 08-01-2018 - Jean Kraus [place] 08-01-2018 [facility] (67174) GENERAL PROCEDURE 08-01-2018 - Oneyda Hatfield [facility] 08-01-2018 [facility] (74634) MRI SPINE LUMBAR (OUTSIDE 06-14-2018 - [place] IMAGE[place] 06-14-2018 [facility] (53161) MRI SPINE THORACIC 06-14-2018 - Jean Kraus [facility] (OUTSIDE IMAGE) 06-14-2018 [facility] (47832) MRI SPINE CERVICAL 06-14-2018 - Jean Kraus [facility] (OUTSIDE IMAGE) 06-14-2018 [facility] (25149) MRI (OUTSIDE) 06-14-2018 - Historical Provider [place] 06-14-2018 [facility] (81955) MRI SPINE CERVICAL 05-31-2018 - Jean Kraus [facility] (OUTSIDE IMAGE) 05-31-2018 [facility] (23630) MRI (OUTSIDE) 05-31-2018 - Other Other [place] 05-31-2018 [facility] (41743) OUTSIDE RADIOLOGY 05-07-2018 - Other Other [facility] 05-07-2018 [facility] (24585) Plan of Treatment Plan Description Date Location Office Visit 12/03/2019 Office Visit 12-03-2019 - Comprehe nsive Spine Neurologic Surgery 12-03-2019 Center Outpat ient Care Jean Kraus MD [address] [id number] INFLUENZA VACCINE (#1) INFLUENZA VACCINE (#1) 2019 - [facility] 04-14-2019 [facility] (76951) EMG & NERVE CONDUCTION EMG & NERVE CONDUCTION 08-17-2018 - [facility] Routine Paresthesia [facility]-17-[facility], bilateral (97416) Expected: 08/17/2018, Expires: 08/17/2019 Comment: Expected: 08/17/2018, s: 08/17/2019 Appointment no information 08-01-2018 - Ambulatory Surge ry 08-01-[address] SP[address]ERVICAL CT SPINE CERVICAL 06-28-2018 - [facility] THORACIC LUMBAR THORACIC LUMBAR 06-28-2019 [facility] WITHOUT CONTRAST WITHOUT CONTRAST [facility] Routine Anterior (08745) spinal artery compression syndrome Syrinx Mass of spine Expected: 06/28/2018, Expires: 06/28/2019 Comment: Expected: 06/28/2018, s: 06/28/2019 XR FLUORO MYELOGRAM XR FLUORO MYELOGRAM 06-28-[address] - [facility] te CERVICAL ONLY CERVICAL ONLY Routine 06-28-2019 [facility] Syrinx Mass of spine Medical [facility] (60704) Anterior spinal artery compression syndrome Expected: 06/28/2018, Expires: 06/28/2019 Comment: Expected: 06/28/2018, s: 06/28/2019 XR FLUORO MYELOGRAM XR FLUORO MYELOGRAM 06-28-[address] - [facility] te THORACIC/LUMBAR THORACIC/LUMBAR Routine 06-28-2019 [facility] Syrinx Mass of spine Medical [facility] ter Anterior spinal artery (27142) compression syndrome Expected: 06/28/2018, Expires: 06/28/2019 Comment: Expected: 06/28/2018, s: 06/28/2019 MRI SPINE CERVICAL MRI SPINE CERVICAL 06-28-2018 - [facility] WITHOUT CONTRAST WITHOUT CONTRAST 06-28-2019 [facility] Routine Mass of spine (01288) Syrinx Anterior spinal artery compression syndrome Expected: 06/28/2018, Expires: 06/28/2019 Comment: Expected: 06/28/2018, s: 06/28/2019 MRI SPINE THORACIC MRI SPINE THORACIC 06-28-2018 - [facility] WITHOUT CONTRAST WITHOUT CONTRAST 06-28-2019 [facility] Routine Syrinx Mass of (76284) spine Anterior spinal artery compression syndrome Expected: 06/28/2018, Expires: 06/28/2019 Comment: Expected: 06/28/2018, s: 06/28/2019 Office Visit 06/28/2018 Office 06-28-2018 - [facility] Comprehens leonardo Visit Neurologic 06-28-2018 Spine Center Surgery Jean Kraus MD [address] [place] [address] INFLUENZA VACCINE INFLUENZA VACCINE (#1) [address] [facility] [place] [address] [facility] (#1) 04-14-2018 [facility] ( 34245) Appointment Appointment 01-20-2017 - [facility] Now Clinic ( 19951) 01-20-2017 PAP SMEAR DISCUSSION no information 2005 - [facility] 2005 [facility] ( 68996) TDAP (ADULT) TDAP (ADULT) 11-05-2003 - [facility] 11-05-2003 [facility] ( 80276) TETANUS TETANUS 2002 - [facility] 2002 [facility] ( 82703) HIV SCREENING HIV SCREENING 1997 - [facility] DISCUSSION DISCUSSION 1997 [facility] ( 56285) GENERAL PROCEDURE GENERAL PROCEDURE 08-01-2018 [facility] Routine Once for 1 [facility] Occurrences starting Medical [address] ter (57262) 08/01/2018 until 08/01/2018, 1 completed Comment: Once for 1 Occurrences start ing 08/01/2018 until 08/01/2018, 1 completed Payers Payer Name Policy Number Location MMO NETWORK ACCESS [id number] [facility] ([id number]) MMO NETWORK ACCESS, [employer] [facility] [id number] [facility] ([id number]) [id number] [facility] ([id number]) [id number] [facility] y [facility] (31256) The following information is from the original human readable contentNo Payer Records FoundNo Payer Records FoundNo Payer Records Found Social History Type Social History Date Location Description Tobacco smoking status Unknown if ever smoked [facility] (53187) Sex Assigned At Not on file [facility] (69218) Tobacco smoking status Never smoker 06-28-2018 - [place] [facility] 06-28-2018 [facility] (56917) Alcohol intake Current non-drinker of 06-28-2018 - [facility] (finding) 06-28-2018 [place] (19705) The following information is from the original human readable contentNo Social History Records FoundNo Social History Records FoundNo Social History Records FoundNo Social History Records FoundNo Social History Records Found Reason for Referral Status Reason Specialty Diagnoses / Referred By Referred To Procedures Contact Contact New Request Spine Diagnoses Syrinx of spinal cord Elisabet Bales, [address] [place] [address] Status Reason Specialty Diagnoses / Procedures Referred By C ontact Referred To Contact Closed Diagnoses Anterior spinal artery compression syndrome Syrinx Mass of spine Jean Kraus Procedures CT SPINE CERVICAL THORACIC LUMBAR WITH CONTRAST CT SPINE CERVICAL THORACIC LUMBAR WITHOUT CONTRAST MT CT SCAN,CERVICAL SPINE,W/O CONTRAST MT CT SCAN,THORACIC SPINE,W/O CONTRAST MT CT SCAN,LUMBAR SPINE,W/O CONTRAST MD Charly MT CT SCAN CERV SPINE CONTRAST MT CT SCAN DORSAL SP CONTRAST MT CT SCAN LUMBAR SP CONTRAST [address] [place] [address] Phone: Status Reason Specialty Diagnoses / Referred By Referred To Procedures Contact Contact New Request Diagnoses Syrinx Mass of spine Anterior spinal artery compression syndrome Jean Kraus Procedures XR FLUORO MYELOGRAM CERVICAL ONLY MD Charly [address] [place] [address] Status Reason Specialty Diagnoses / Referred By Referred To Procedures Contact Contact New Request Diagnoses Syrinx Mass of spine Anterior spinal artery compression syndrome Jean Kraus Procedures XR FLUORO MYELOGRAM THORACIC/LUMBAR MD Charly [address] [place] [address] Status Reason Specialty Diagnoses / Referred By Referred To Procedures Contact Contact New Request Diagnoses Anterior spinal artery compression syndrome Syrinx Mass of spine Jean Kraus Procedures CT SPINE CERVICAL THORACIC LUMBAR WITHOUT CONTRAST MT CT SCAN,CERVICAL SPINE,W/O CONTRAST MT CT SCAN,THORACIC SPINE,W/O CONTRAST MT CT SCAN,LUMBAR SPINE,W/O CONTRAST MD Charly [address] [place] [address] Status Reason Specialty Diagnoses / Referred By Referred To Procedures Contact Contact New Request Diagnoses Syrinx Mass of spine Anterior spinal artery compression syndrome Jean Kraus Procedures MRI SPINE THORACIC WITHOUT CONTRAST MT MRI, DORSAL SPINE MD Charly [address] [place] [address] Status Reason Specialty Diagnoses / Referred By Referred To Procedures Contact Contact New Request Diagnoses Mass of spine Syrinx Anterior spinal artery compression syndrome Jean Kraus Procedures MRI SPINE CERVICAL WITHOUT CONTRAST MT MRI, CERV SPINE MD Charly [address] [place] [address] Status Reason Specialty Diagnoses / Referred By Referred To Procedures Contact Contact New Request Physical Therapy Diagnoses Syrinx Mass of spine Anterior spinal artery compression syndrome Jean Kraus MD [address] [place] [address] Scheduling Instructions [facility] [address] [place] [address] Fax [facility]) [address], [place] [address] FAX [facility] [address] [address] FAX [facility] [address] [place], [place] [address] FAX [facility] [address] [place] [address] FAX Physical Therapy at [facility] [address] [id number] FAX [facility] [address] [place] [address] [phone] FAX [facility] [address] [place], [place] [address] [phone] FAX Status Reason Specialty Diagnoses / Referred By Referred To Procedures Contact Contact New Request Diagnoses Syrinx Mass of spine Anterior spinal artery compression syndrome Jean Kraus Procedures XR FLUORO MYELOGRAM ENTIRE SPINE XR FLUORO MYELOGRAM THORACIC/LUMBAR MD Charly [address] [place] [address] Status Reason Specialty Diagnoses / Referred By Contact Refe rred To Procedures Contact New Request Diagnoses Paresthesia of hand, bilateral Odin, Jaquelin Procedures EMG & NERVE CONDUCTION Killian PA-C [address] [place], [place] [address] Phone: Assessments Diagnosis Syrinx of spinal cord [...] 180lbs Code Status: No prior IV: none Manager Of Housekeeping: Zander Mckay () Phone Number: [phone] Procedure Information: Exam: Entire Spine Myelogram: Needle [...] BE BASED ON THE PRIMARY CLINICAL RECORDS. [facility] provides no warranty or guarantee of the [...] XR FLUORO MYELOGRAM THORACIC/LUMBAR MD Charly [address] [place] [address] Status Reason Specialty Diagnoses / Procedures Referred By C ontnorm Referred To Contact Closed Diagnoses Syrinx [place] of spine Anterior spinal artery compression syndrome Jean Kraus Procedures XR FLUORO MYELOGRAM CERVICAL ONLY MD Charly [address] [place] [address] Phone: Status Reason Specialty Diagnoses / Procedures Referred By C ontact Referred To Contact Closed Diagnoses Anterior spinal artery compression syndrome Syrinx Mass of spine Jena Kraus Procedures CT SPINE CERVICAL THORACIC LUMBAR WITH CONTRAST CT SPINE CERVICAL THORACIC LUMBAR WITHOUT CONTRAST MT CT SCAN,CERVICAL SPINE,W/O CONTRAST MT CT SCAN,THORACIC SPINE,W/O CONTRAST MT CT SCAN,LUMBAR SPINE,W/O CONTRAST MD Charly MT CT SCAN CERV SPINE CONTRAST MT CT SCAN DORSAL SP CONTRAST MT CT SCAN LUMBAR SP CONTRAST [address] [place] [address] Phone: Reason Comments New Patient Status Reason Specialty Diagnoses / Referred By Referred To Procedures Contact Contact New Request Neurologic Surgery Diagnoses [facility] Elisabet Bales, DO [address] [place] [address] UNRECOGNIZED CONTENT PROVIDED BELOW FOR UNRECOGNIZED SECTION INFORMATION SOURCE DATE CREATED AUTHOR AUTHOR'S ORGANIZATIO N 08/13/2019 [facility] DATE CREATED AUTHOR AUTHOR'S ORGANIZATIO N 12/03/2019 [facility] DATE CREATED AUTHOR AUTHOR'S ORGANIZATIO N 05/05/2020 [facility]
--- OUTSIDE RECORDS SUMMARY | 2020-05-31 13:20 | XMS RPT_ITS | CCD ---
:1985 External Reference #:[id number] Author Organization [employer] Care Team Providers [...] Location acetaminophen / Mild, Mild 10-07-2015 - [facility] Now Clin ic HYDROcodone (62625) morphine 06-28-2018 - [facility] (70776) morphine Resp. 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 0 Active Completed/Discontinuned Medications Medication Name Sig Date Prescriber Location Iohexol iohexol (OMNIPAQUE) 08-01-2018 - Luisa Wall [facility] 300 MG/ML vial 12 08-01-2018 [facility] (54593) Lidocaine lidocaine 1% (PF) 08-01-2018 - [facility] (XYLOCAINE MPF) 1 % 08-01-2018 [facility] injection 4 mL [facility] (85929) phentermine PHENTERMINE HCL 10-07-2015 - Ivelisse Villanueva [facility] Now C linic 37.5 MG TABS 1 po 01-01-2016 [employer] (74510) daily in the morning PHENTERMINE HCL [id number] Elisabet A Malys, DO phentermine / QSYMIA 11.25-69 MG 03-02-2016 Son A Flores DO [facility] topiramate [id number] One (19703) capsule by mouth daily PHENTERMINE-TOPIRAM ATE [id number] Son A Flores DO QSYMIA 11.25-69 MG [id number] One 03-02-2016 Son A Flores [facility] capsule by mouth daily DO (00759) PHENTERMINE-TOPIRAMATE [id number] Son A Flores DO QSYMIA 7.5-46 MG [id number] One 01-01-2016 Son A Flores W [facility] capsule by mouth daily DO (99175) PHENTERMINE-TOPIRAMATE [id number] Son A Flores DO QSYMIA 3.75-23 MG [id number] One 01-01-2016 Son A Flores [facility] capsule by mouth every morning DO ( 40093) PHENTERMINE-TOPIRAMATE [id number] Son A Flores DO QSYMIA 7.5-46 MG [id number] One 01-01-2016 - [facility] capsule by mouth daily 03-02-2016 (18813) PHENTERMINE-TOPIRAMATE [id number] Son A Flores DO QSYMIA 7.5-46 MG [id number] One 01-01-2016 Son A Flores [facility] capsule by mouth daily DO (57536) PHENTERMINE-TOPIRAMATE [id number] Son A Flores DO QSYMIA 3.75-23 MG [id number] One 01-01-2016 Son A Flores [facility] capsule by mouth every morning DO ( 89755) PHENTERMINE-TOPIRAMATE [id number] Son A Flores DO QSYMIA 7.5-46 MG [id number] One 01-01-2016 - W [facility] capsule by mouth daily 03-02-2016 (17219) PHENTERMINE-TOPIRAMATE [id number] Son Tanner DO predniSONE PREDNISONE 10 MG TABS 01-20-2017 - Viktor BENAVIDES [facility] Now Clinic 4 tablets daily for 3 02-01-2017 (85960 ) days, then 3 tablest daily for 3 days, then 2 tablets daily for 3 days, then 1 tablet daily for 3 days. PREDNISONE [id number] Viktor BENAVIDES Problems Active Problems Category Problem Name Status Date Location Other connective tissue Mass of musculoskeletal Active [facility] disease structure [facility] (99809) Other nervous system Syringomyelia Active [facility]scano [facility] (17779) Other nervous system Disorder of the central Active [facility] disorders nervous system [facility] (87313) Other nervous system Paresthesia of hand Active [facility] (38231) Other nutritional; Excessive thirst Active 10-07-2015 - [facility] N ow Clinic endocrine; and metabolic - 03-05-2016 (44 691) disorders - Spondylosis; 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 [facility] disorders; other back [facility] (43279) Past or Other Problems Category Problem Name Status Date Location Allergic reactions Contact dermatitis Completed 01-20-2017 - [facility] Now [facility] due to plants (27889) Genitourinary symptoms Polyuria Completed 03-02-2016 - - [facility] Now Clinic and ill-defined 03-07-2016 - (26101) conditions Menstrual disorders Menorrhagia Completed 03-02-2016 - - [facility] No w Clinic 03-07-2016 - (69441) Results Result Name Value Range Unit Interpretation Flag Date Location dietition note on Dietition Note Chief Complaint Normal 0 [facility] A telephone visit (audio onl y) between the patient (at the originating site) and the provider (at the distant site) was utilized to provide this telehealth service. (34601) obesity [facility] Provider Impressions Patient Name: Vee [...] 2019-11-05 Outside Imaging Study for Support 11-05-2019 [facility] of Clinical Care This study was (96542) sent from an outside facility to [facility] for support of clinical care of the patient within the [facility]. Outside Imaging Study for Support 11-05-2019 [facility] of Clinical Care This study was ([id number]) sent from an outside facility to [facility] for support of clinical care of the patient within the [facility]. obsolete on 2019-07 OBSOLETE Refill (FAMPWS) Normal 08-13-2019 Aram oleary VEE Swan ([id number]) 1985 [facility] Date Time Provider Department (71995) 08/13/19 NELSON GRAHAM During your visit today, [...] MYELOGRAM ENTIRE SPINE, 08/01/2018 14:45 PM (accession [id number]), 08/01/2018 14:27 PM (accession [id number]) COMPARISON: Comparison is made to previous MRI of the entire spine dated 06/14/2018 from an outside facility. CLINICAL INDICATIONS: 32 years Female Anterior spinal artery compression syndrome; RELEVANT CLINICAL HISTORY: M47.019:Anterior spinal artery compression syndrome G95.0:Syrinx M89.9:Mass of spine (accession [id number]), G95.0:Syrinx M89.9:Mass of spine M47.019:Anterior spinal artery compression syndrome (accession [id number]) Myelogram of the entire spine: TECHNIQUE: Informed [...] MYELOGRAM ENTIRE SPINE, 08/01/2018 14:45 PM (accession [id number]), 08/01/2018 14:27 PM (accession [id number]) COMPARISON: Comparison is made to previous MRI of the entire spine dated 06/14/2018 from an outside facility. CLINICAL INDICATIONS: 32 years Female Anterior spinal artery compression syndrome; RELEVANT CLINICAL HISTORY: M47.019:Anterior spinal artery compression syndrome G95.0:Syrinx M89.9:Mass of spine (accession [id number]), G95.0:Syrinx M89.9:Mass of spine M47.019:Anterior spinal artery compression syndrome (accession [id number]) Myelogram of the entire spine: TECHNIQUE: Informed [...] 2018-06-28 Outside Imaging Invalid Interpretation 1 08-28-2017 [facility]'s Study for Support of [facility] Clinical Care This ( 41726) study was sent from an outside facility to [facility] for support of clinical care of the patient within the [facility]. Outside Imaging Invalid Interpretation 1 08-28-2017 [facility]'s Study for Support of [facility] Clinical Care This ( 40092) study was sent from an outside facility to [facility] for support of clinical care of the patient within the [facility]. Outside Imaging Invalid Interpretation 1 08-28-2017 [facility]'s Study for Support of [facility] Clinical Care This ( 18051) study was sent from an outside facility to [facility] for support of clinical care of the patient within the [facility]. Outside Imaging Invalid Interpretation 1 08-28-2017 [facility]'s Study for Support of [facility] Clinical Care This ( 47429) study was sent from an outside facility to [facility] for support of clinical care of the patient within the [facility]. office visit: uc: poison birdie on 2017-01-20 Documentation of Done Invalid 01-20-2017 [facility] Now current medications Interpretation Code 01-20-2017 Clinic (procedure) (07627) Tobacco smoking Never Invalid 01-20-2017 - W Now status NHIS Interpretation Code 01-21-20 17 Clinic (22726) Tobacco use CPHS Former Invalid 01-20-2017 [facility] Now smoker Interpretation Code 01-20-2017 Clinic (91689) Vital Signs Vital Sign Description Value / Unit Date Location The following section is limited to 5 en tries per type and includes entries from the following time range: 20170120 - 20180614 5. BMI (Body Mass Index) 48.06 kg/m2 11-15-2018 [facility] (11685) BMI (Body Mass Index) 44.93 kg/m2 01-20-2017 - 01-20-2017 [facility] Now Clinic (03487) Body Temperature 97.7 [degF] 08-01-2018 [facility] (56320) Body Temperature 98.2 [degF] 01-20-2017 - 01-20-2017 [facility] Now Clinic (23793) BP Diastolic 63 mm[Hg] 08-01-2018 [facility] (73437) BP Diastolic 67 mm[Hg] 06-28-2018 [facility] (41969) BP Diastolic 66 mm[Hg] 01-20-2017 - 01-20-2017 [facility] Now Clinic (90635) BP Systolic 136 mm[Hg] 08-01-2018 [facility] (41739) BP Systolic 131 mm[Hg] 06-28-2018 [facility] (74152) BP Systolic 104 mm[Hg] 01-20-2017 - 01-20-2017 [facility] Now Clinic (99506) BSA (Body Surface Area) 2.21 m2 03-02-2016 - 03-02-2016 [facility] Now Clinic (16855) Height 162.6 cm 06-28-2018 [facility] (82513) Height 165.1 cm 01-20-2017 - 01-20-2017 [facility] Now Clinic (03140) Pulse (Heart Rate) 64 /min 08-01-2018 [facility] (62412) Pulse (Heart Rate) 84 /min 06-28-2018 [facility] (28938) Pulse (Heart Rate) 69 /min 01-20-2017 - 01-20-2017 [facility] N ow Clinic (05617) Pulse Oximetry 99 % 08-01-2018 [facility] (26750) Pulse Oximetry 99 % 01-20-2017 - 01-20-2017 [facility] Now Clinic (91339) Respiratory Rate 18 /min 08-01-2018 [facility] (90214) Respiratory Rate 16 /min 01-20-2017 - 01-20-2017 [facility] (82537) Weight 127.01 kg 06-28-2018 [facility] (81525) Weight 122.47 kg 01-20-2017 - 01-20-2017 [facility] Now Clinic (62338) Encounters Date Type Reason Provider Location 10-16-2019 Evaluation and JEAN Parks Facility:[facility] - Office consultation Disorder of the Jean Parks [facility]mprehensive 06-28-2018 new/estab patient 40 central nervous [facility] min system Comment: Syrinx; Mass of spine; Anter ior spinal artery compression syndrome 06-26-2018 - 06-26-2018 Patient encounter Syringomyelia Karlene Nayan Central Scheduling Comment: Syrinx of spinal cord (Prima ry Dx) 12-03-2019 Patient JEAN Parks Facility:[facility] encounter [facility] procedure JEAN BALES 09-21-2018 - Patient Other Other [facility] 09-21-2018 encounter [facility] procedure Center 08-17-2018 - Patient Paresthesia of Jaquelin A [facility] Comprehen [facility]ive Spine 08-17-2018 encounter [facility] procedure Comment: Paresthesia of hand, bilater al (Primary Dx) 08-01-2018 - Patient encounter Jean Kraus Ambu latory Surgery 08-01-2018 procedure Unit Comment: No Show 08-01-2018 - Patient encounter Disorder of the Jean Parks Departm ent of 08-01-2018 procedure central nervous [facility] Radiology system Comment: Arrived Canceled (Scheduling [...] MRI CERVICAL, THORACIC, 10-16-2019 Jean Kraus [facility] LUM[facility] (OUTSIDE IMAGE) CENTER (4 4700) MRI SPINE THORACIC 10-16-[address] [facility] (OUTSIDE IMAGE) CENTER (27773) CT of whole spine with 08-01-2018 - Jean Kraus [place] [facility] contrast 08-01-2018 [facility] (22703) Fluoroscopic myelogram 08-01-2018 - Jean Kraus [place] 08-01-2018 [facility] (58568) GENERAL PROCEDURE 08-01-2018 - Oneyda Hatfield [facility] 08-01-2018 [facility] (81894) MRI SPINE LUMBAR (OUTSIDE 06-14-2018 - [place] IMAGE[place] 06-14-2018 [facility] (45194) MRI SPINE THORACIC 06-14-2018 - Jean Kraus [facility] (OUTSIDE IMAGE) 06-14-2018 [facility] (06512) MRI SPINE CERVICAL 06-14-2018 - Jean Kraus [facility] (OUTSIDE IMAGE) 06-14-2018 [facility] (54058) MRI (OUTSIDE) 06-14-2018 - Historical Provider [place] 06-14-2018 [facility] (79277) MRI SPINE CERVICAL 05-31-2018 - Jean Kraus [facility] (OUTSIDE IMAGE) 05-31-2018 [facility] (60188) MRI (OUTSIDE) 05-31-2018 - Other Other [place] 05-31-2018 [facility] (66723) OUTSIDE RADIOLOGY 05-07-2018 - Other Other [facility] 05-07-2018 [facility] (70976) Plan of Treatment Plan Description Date Location Office Visit 12/03/2019 Office Visit 12-03-2019 - Comprehe nsive Spine Neurologic Surgery 12-03-2019 Center Outpat ient Care Jean Kraus MD [address] [id number] INFLUENZA VACCINE (#1) INFLUENZA VACCINE (#1) 2019 - [facility] 04-14-2019 [facility] (29399) EMG & NERVE CONDUCTION EMG & NERVE CONDUCTION 08-17-2018 - [facility]'s Routine Paresthesia of 08-17-[facility] hand, bilateral (35106) Expected: 08/17/2018, Expires: 08/17/2019 Comment: Expected: 08/17/2018, s: 08/17/2019 Appointment no information 08-01-2018 - Ambulatory Surge ry 08-01-[address] SPINE [address]ERVICAL CT SPINE CERVICAL 06-28-2018 - [facility] THORACIC LUMBAR THORACIC LUMBAR 06-28-[address] [facility] WITHOUT CONTRAST WITHOUT CONTRAST Medical [facility] Routine Anterior (48333) spinal artery compression syndrome Syrinx Mass of spine Expected: 06/28/2018, Expires: 06/28/2019 Comment: Expected: 06/28/2018, s: 06/28/2019 XR FLUORO MYELOGRAM XR FLUORO MYELOGRAM 06-28-2018 - [facility] te CERVICAL ONLY CERVICAL ONLY Routine 06-28-2019 [facility] Sy[facility]x Mass of spine [facility] (31349) Anterior spinal artery compression syndrome Expected: 06/28/2018, Expires: 06/28/2019 Comment: Expected: 06/28/2018, s: 06/28/2019 XR FLUORO MYELOGRAM XR FLUORO MYELOGRAM 06-28-2018 - [facility] te THORACIC/LUMBAR THORACIC/LUMBAR Routine 06-28-2019 [facility] Sy[facility]x Mass of spine Medical [facility] ter Anterior spinal artery (88157) compression syndrome Expected: 06/28/2018, Expires: 06/28/2019 Comment: Expected: 06/28/2018, s: 06/28/2019 MRI SPINE CERVICAL MRI SPINE CERVICAL 06-28-2018 - [facility] WITHOUT CONTRAST WITHOUT CONTRAST 06-28-2019 [facility] Routine Mass of spine (06452) Syrinx Anterior spinal artery compression syndrome Expected: 06/28/2018, Expires: 06/28/2019 Comment: Expected: 06/28/2018, s: 06/28/2019 MRI SPINE THORACIC MRI SPINE THORACIC 06-28-2018 - [facility] WITHOUT CONTRAST WITHOUT CONTRAST 06-28-2019 [facility] Routine Syrinx Mass of (03383) spine Anterior spinal artery compression syndrome Expected: 06/28/2018, Expires: 06/28/2019 Comment: Expected: 06/28/2018, s: 06/28/2019 Office Visit 06/28/2018 Office 06-28-2018 - [facility] Comprehens leonardo Visit Neurologic 06-28-2018 Spine Center Surgery Jean Kraus MD [address] [place] [address] INFLUENZA VACCINE INFLUENZA VACCINE (#1) 2018 - [place] [facility] ate (#1) 04-14-2018 [facility] ( 03460) Appointment Appointment 01-20-2017 - [facility] Now Clinic ( 38297) 01-20-2017 PAP SMEAR DISCUSSION no information 2005 - [facility] 2005 [facility] ( 84666) TDAP (ADULT) TDAP (ADULT) 11-05-2003 - [facility] 11-05-2003 [facility] ( 58157) TETANUS TETANUS 2002 - [facility] 2002 [facility] ( 94776) HIV SCREENING HIV SCREENING 1997 - [facility] DISCUSSION DISCUSSION 1997 [facility] ( 99630) GENERAL PROCEDURE GENERAL PROCEDURE 08-01-2018 [facility] Routine Once for 1 [facility] Occurrences starting [address] (13823) 08/01/2018 until 08/01/2018, 1 completed Comment: Once for 1 Occurrences start ing 08/01/2018 until 08/01/2018, 1 completed Payers Payer Name Policy Number Location MMO NETWORK ACCESS [id number] [facility] ([id number]) MMO NETWORK ACCESS, [employer] [facility] [id number] [facility] ([id number]) [id number] [facility] ([id number]) [id number] [facility] y [facility] (01498) The following information is from the original human readable contentNo Payer Records FoundNo Payer Records FoundNo Payer Records Found Social History Type Social History Date Location Description Tobacco smoking status Unknown if ever smoked [facility] (96504) Sex Assigned At Not on file [facility] (17311) Tobacco smoking status Never smoker 06-28-2018 - [place] [facility] 06-28-2018 [facility] (95735) Alcohol intake Current non-drinker of 06-28-2018 - [facility] (finding) 06-28-2018 [facility] (47481) The following information is from the original human readable contentNo Social History Records FoundNo Social History Records FoundNo Social History Records FoundNo Social History Records FoundNo Social History Records Found Reason for Referral Status Reason Specialty Diagnoses / Referred By Referred To Procedures Contact Contact New Request Spine Diagnoses Syrinx of spinal cord Elisabet Bales, [address] [place] [address] Status Reason Specialty Diagnoses / Procedures Referred By C ontact Referred To Contact Closed Diagnoses Anterior spinal artery compression syndrome Syrinx Mass of spine Jean Kraus Procedures CT SPINE CERVICAL THORACIC LUMBAR WITH CONTRAST CT SPINE CERVICAL THORACIC LUMBAR WITHOUT CONTRAST CT CT SCAN,CERVICAL SPINE,W/O CONTRAST CT CT SCAN,THORACIC SPINE,W/O CONTRAST CT CT SCAN,LUMBAR SPINE,W/O CONTRAST MD Charly CT CT SCAN CERV SPINE CONTRAST CT CT SCAN DORSAL SP CONTRAST CT CT SCAN LUMBAR SP CONTRAST [address] [place] [address] Phone: Status Reason Specialty Diagnoses / Referred By Referred To Procedures Contact Contact New Request Diagnoses Syrinx Mass of spine Anterior spinal artery compression syndrome Jean Kraus Procedures XR FLUORO MYELOGRAM CERVICAL ONLY MD Charly [address] [place] [address] Status Reason Specialty Diagnoses / Referred By Referred To Procedures Contact Contact New Request Diagnoses Syrinx Mass of spine Anterior spinal artery compression syndrome Jean Kraus Procedures XR FLUORO MYELOGRAM THORACIC/LUMBAR MD Charly [address] [place] [address] Status Reason Specialty Diagnoses / Referred By Referred To Procedures Contact Contact New Request Diagnoses Anterior spinal artery compression syndrome Syrinx Mass of spine Jean Kraus Procedures CT SPINE CERVICAL THORACIC LUMBAR WITHOUT CONTRAST CT CT SCAN,CERVICAL SPINE,W/O CONTRAST CT CT SCAN,THORACIC SPINE,W/O CONTRAST CT CT SCAN,LUMBAR SPINE,W/O CONTRAST MD Charly [address] [place] [address] Status Reason Specialty Diagnoses / Referred By Referred To Procedures Contact Contact New Request Diagnoses Syrinx Mass of spine Anterior spinal artery compression syndrome Jean Kraus Procedures MRI SPINE THORACIC WITHOUT CONTRAST CT MRI, DORSAL SPINE MD Charly [address] [place] [address] Status Reason Specialty Diagnoses / Referred By Referred To Procedures Contact Contact New Request Diagnoses Mass of spine Syrinx Anterior spinal artery compression syndrome Jean Kraus Procedures MRI SPINE CERVICAL WITHOUT CONTRAST CT MRI, CERV SPINE MD Charly [address] [place] [address] Status Reason Specialty Diagnoses / Referred By Referred To Procedures Contact Contact New Request Physical Therapy Diagnoses Syrinx Mass of spine Anterior spinal artery compression syndrome Jean Kraus MD [address] [place] [address] Scheduling Instructions [facility] [address] [place] [address] Fax [facility] (Neck and Back Therapy) [address] [place], [place] [address] FAX [facility] [address] [address] FAX [facility] [address] [place], [place] [address] FAX [facility] [address] [place] [address] FAX Physical Therapy at [facility] [address] [phone] FAX [facility] [address] [place] [address] [phone] FAX [facility] [address] [place], [place] [address] [phone] FAX Status Reason Specialty Diagnoses / Referred By Referred To Procedures Contact Contact New Request Diagnoses Syrinx Mass of spine Anterior spinal artery compression syndrome Jean Kraus Procedures XR FLUORO MYELOGRAM ENTIRE SPINE XR FLUORO MYELOGRAM THORACIC/LUMBAR MD Charly [address] [place] [address] Status Reason Specialty Diagnoses / Referred By Contact Refe rred To Procedures Contact New Request Diagnoses Paresthesia of hand, bilateral Odin, Jaqeulin Procedures EMG & NERVE CONDUCTION Killian PA-C [address] [place], [place] [address] Phone: Assessments Diagnosis Syrinx of spinal cord [...] 180lbs Code Status: No prior IV: none Biochemistry Technologist: Zander Mckay () Phone Number: [phone] Procedure Information: Exam: Entire Spine Myelogram: Needle [...] BE BASED ON THE PRIMARY CLINICAL RECORDS. [facility] provides no warranty or guarantee of the [...] XR FLUORO MYELOGRAM THORACIC/LUMBAR MD Charly [address] [place] [address] Status Reason Specialty Diagnoses / Procedures Referred By C ontnorm Referred To Contact Closed Diagnoses Syrinx Mass of spine Anterior spinal artery compression syndrome Jean Kraus Procedures XR FLUORO MYELOGRAM CERVICAL ONLY MD Charly [address] [place] [address] Phone: Status Reason Specialty Diagnoses / Procedures Referred By C ontact Referred To Contact Closed Diagnoses Anterior spinal artery compression syndrome Syrinx Mass of spine Jean Kraus Procedures CT SPINE CERVICAL THORACIC LUMBAR WITH CONTRAST CT SPINE CERVICAL THORACIC LUMBAR WITHOUT CONTRAST CT CT SCAN,CERVICAL SPINE,W/O CONTRAST CT CT SCAN,THORACIC SPINE,W/O CONTRAST CT CT SCAN,LUMBAR SPINE,W/O CONTRAST MD Charly CT CT SCAN CERV SPINE CONTRAST CT CT SCAN DORSAL SP CONTRAST CT CT SCAN LUMBAR SP CONTRAST [address] [place] [address] Phone: Reason Comments New Patient Status Reason Specialty Diagnoses / Referred By Referred To Procedures Contact Contact New Request Neurologic Surgery Diagnoses Syrinx Elisabet Bales, DO [address] [place] [address] UNRECOGNIZED CONTENT PROVIDED BELOW FOR UNRECOGNIZED SECTION INFORMATION SOURCE DATE CREATED AUTHOR AUTHOR'S ORGANIZATIO N 08/13/2019 [facility] DATE CREATED AUTHOR AUTHOR'S ORGANIZATIO N 12/03/2019 [facility] DATE CREATED AUTHOR AUTHOR'S ORGANIZATIO N 05/05/2020 [employer]
== END 2020-01-27 00:17 | disposition home or self-care (01) ==
PROVIDERS: Emergency Provider Emergency Medicine; PCP Family Medicine
DX: I88.0 Nonspecific mesenteric lymphadenitis (principal); R10.31 Right lower quadrant pain
CPT/HCPCS: 36415; 74176; 80048; 81001; 84703; 85025; 87086; 87088; 96372; 99284; J7030; J2405

== ENCOUNTER → 2020-02-10 | Outpatient (CLI) | payer OTHER, SELFPAY ==
[2020-01-26 21:49] VITALS: BMI 51.2
--- NOTE | 2020-02-10 14:18 | MRI_ITS ---
STUDY: MRI LEFT KNEE REASON FOR EXAM: Female, 34 years old. Fall, knee pain. TECHNIQUE: Standardized fat and water weighted pulse sequences were obtained in all 3 orthogonal planes. COMPARISON: None. FINDINGS: Normal medial meniscus. Normal hyaline cartilage of the medial femorotibial compartment. Normal medial femoral condyle and tibial plateau. Normal medial collateral ligamentous complex (MCL). Normal distal semimembranosus, gracilis and semitendinosus tendons. Normal lateral meniscus. Normal hyaline cartilage of the lateral femorotibial compartment. Normal lateral femoral condyle and tibial plateau. Normal proximal tibiofibular articulation. Normal lateral collateral (fibular) ligament. Normal popliteus tendon. Normal biceps femoris tendon. Fluid collection between the iliotibial band and lateral femoral condyle consistent with iliotibial band syndrome. Normal anterior cruciate ligament (ACL). Normal posterior cruciate ligament (PCL). Normal congruent patellofemoral articulation. Normal hyaline cartilage of the patellofemoral compartment. Normal medial and lateral patellar retinaculum. Moderate prepatellar soft tissue swelling. Normal quadriceps tendon. Normal patellar tendon. Normal Hoffa''s fat pad. There is no joint effusion. The soft tissues are unremarkable. The otherwise visualized osseous structures are unremarkable. MRI/Lower Ext Joint Only (Routine) IMPRESSION: Suspect iliotibial band syndrome. Electronically Signed: Yinka Olmstead MD at 16:54 EDT Tel , Service support ,
== END | disposition home or self-care (01) ==
LOC: MRI 13:57
PROVIDERS: PCP Family Medicine; Referring Provider Specialist; Visit Provider Specialist
DX: M25.562 Pain in left knee (principal)
CPT/HCPCS: 73721

== ENCOUNTER → 2020-02-20 | Outpatient (CLI) | payer OTHER, SELFPAY ==
[2020-02-20 14:53] VITALS: BMI 51.2
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
== END | disposition home or self-care (01) ==
LOC: HPRAD 15:05
PROVIDERS: PCP Family Medicine; Referring Provider Physician Assistant; Visit Provider Physician Assistant
DX: S69.91XA Unspecified injury of right wrist, hand and finger(s), initial encounter (principal)
CPT/HCPCS: 73130

== ENCOUNTER → 2020-03-25 | Outpatient (CLI) | payer OTHER, SELFPAY ==
[2020-01-14 09:38] VITALS: BMI 48.9
[2020-02-20 14:53] VITALS: BMI 51.2
--- NOTE | 2020-03-25 12:20 | NEURO_ITS ---
NCS and/or EMG Patient Report Ordering Doctor: Tray Novak DATE OF SERVICE: 03/25/20 Val Mckay presents for electrodiagnostic testing of the upper limbs. She reports pain, weakness and numbness in both hands. She does report having a syrinx in the cervical and thoracic spinal column. Electrodiagnostic findings: Median motor nerve demonstrates normal distal latency bilaterally with normal amplitude and borderline reduced conduction velocity on the left side. Median sensory latency at the wrist is prolonged b ilaterally. Normal median palmar latency bilaterally normal ulnar and radial sensory responses. Ulnar motor responses within normal limits. On needle EMG, all muscles tested in the upper limb showed no evidence of denervation with normal motor unit action potentials. Electrodiagnostic impression: This is an abnormal study in the upper limbs. 1. Electrodiagnostic findings demonstrate bilateral median mononeuropathy. This is consistent with a mild bilateral carpal tunnel syndrome. If there are any further questions, please do not hesitate to contact me.
== END | disposition home or self-care (01) ==
LOC: PSN 09:37
PROVIDERS: PCP Family Medicine; Referring Provider Specialist; Visit Provider Specialist
DX: R20.2 Paresthesia of skin (principal)
CPT/HCPCS: 95886; 95912

== ENCOUNTER → 2020-06-24 22:18 | Outpatient (CLI) | payer OTHER, SELFPAY ==
[2020-02-20 14:53] VITALS: BMI 51.2
== END ==
PROVIDERS: PCP Family Medicine; Referring Provider Family Medicine; Visit Provider Family Medicine
DX: G47.10 Hypersomnia, unspecified (principal); E66.01 Morbid (severe) obesity due to excess calories
CPT/HCPCS: 95810

== ENCOUNTER → 2020-07-08 06:46 | Outpatient (CLI) | payer OTHER, SELFPAY ==
[2020-06-25 10:25] VITALS: BMI 50.1
--- NOTE | 2020-07-08 06:55 | ECHOCS_ITS ---
Reason For Study: Dyspnea/SOB Procedure This was a 2D Doppler, Color Flow transthoracic echocardiogram. The study was technically difficult. Contrast injection was performed. Exam performed in department. Left Ventricle Normal LV size. Left ventricular systolic function is normal. The estimated ejection fraction is 65 %. No evidence for diastolic dysfunction. No regional wall motion abnormalities noted. Right Ventricle Normal RV size. Normal systolic function. Atria Normal left atrium. Normal right atrium. No doppler evidence for ASD. Mitral Valve There is no mitral annular calcification. Normal mitral valve. Trivial mitral valve insufficiency. Tricuspid Valve Normal tricuspid valve. Trivial tricuspid valve insufficiency. Unable to estimate RV systolic pressure/pulmonary artery pressure due to technically difficult study. Aortic Valve Trisinus/trileaflet aortic valve. Normal aortic valve. Pulmonic Valve The pulmonic valve is not well visualized. Trivial pulmonic valve insufficiency. Great Vessels Normal sized aortic root. Pericardium/Pleural No pericardial effusion. Medication 22 gauge I.V. with prn adaptor inserted into right arm. Diluted definity 2ml given slow IV push to enhance endocardial definition. MMode/2D Measurements & Calculations LVIDd: 4.8 cm IVSd: 1.0 cm Ao root diam: 3.1 cm LVIDs: 3.1 cm LVPWd: 1.2 cm LA dimension: 4.0 cm FS: 35.3 % LAV(MOD-bp): 57.3 ml LA A4 area: 20.3 cm2 RA A4 area: 18.5 cm2 LAV(MOD-bp) Indexed: 25.0 ml/m2 LAV(MOD-sp2): 53.8 ml LAV(MOD-sp4): 59.0 ml Time Measurements MV dec time: 0.18 sec Doppler Measurements & Calculations MV E max dwayne: 115.9 cm/sec Lat Peak E' Dwayne: 11.9 cm/sec Med Peak E' Dwayne: 13.0 cm/sec MV A max dwayne: 105.7 cm/sec E/E' lat: 9.8 E/E' med: 8.9 MV E/A: 1.1 MV V2 max: 127.5 cm/sec MV P1/2t max dwayne: 128.8 cm/sec Ao V2 max: 139.7 cm/sec MV max P.5 mmHg MV P1/2t: 75.6 msec Ao max P.8 mmHg MV V2 mean: 69.1 cm/sec MV dec slope: 498.6 cm/sec2 MV mean P.3 mmHg MV V2 VTI: 29.8 cm MVA(P1/2t): 2.9 cm2 LV V1 max: 127.4 cm/sec PA V2 max: 127.1 cm/sec LV V1 max P.5 mmHg Interpretation Summary The study was technically difficult. Contrast injection was performed. Left ventricular systolic function is normal. The estimated ejection fraction is 65 %. Trivial mitral valve insufficiency. Trivial tricuspid valve insufficiency. Trivial pulmonic valve insufficiency. Unable to estimate RV systolic pressure/pulmonary artery pressure due to technically difficult study. No evidence for diastolic dysfunction. Ordering Physician: Dustin Perez Referring Physician: Elisabet Bales Performed By: Matheus Nevarez [facility]
--- NOTE | 2020-07-13 08:17 | STRESSREP_ITS ---
Stress Test Report Date: 07-08-2020 Procedure: Exercise tolerance test/imaging study Indications: Shortness of breath/dyspnea on exertion; preoperative cardio vascular evaluation Consent: Per the patient Procedure: The patient exercised on a Reese protocol for 4 minutes and 30 seconds completing Stage I and 1 minute and 30 seconds of Stage II achieving a peak heart rate of 169 bpm (91% predicted maximal heart rate) with a peak blood pressure 164/72 mmHg and a peak MET capacity of 6 METs. The baseline ECG demonstrated normal sinus rhythm. The peak exercise ECG demonstrated somatic/motion artifact with no obvious ECG changes. There were no cardiac dysrhythmias pretest, during exercise, or recovery. The functional capacity was considered decreased. There was no complaint of chest discomfort during exercise or recovery. The examination was discontinued secondary to dyspnea;back/leg pain. Impression: 1. Technically adequate (percent predicted maximal heart rate greater than 85%) exercise tolerance test 2. Peak exercise ECG with symptomatic/motion artifact with no obvious ECG changes 3. There were no cardiac dysrhythmias pretest, during exercise, or recovery 4. Nuclear images pending Myocardial perfusion imaging study: Technique: The patient was injected with 14.8 mCi of technetium 99m Cardiolite and subsequently rest SPECT Cardiolite nuclear imaging was obtained in the horizontal long, vertical long, and short axis views. The patient exercised on a Reese protocol for 4 minutes and 30 seconds completing Stage I and 1 minute and 30 seconds of Stage II achieving a peak heart rate of 169 bpm (91% predicted maximal heart rate) with a peak blood pressure 164/72 mmHg and a peak MET capacity of 6 METs. The patient was injected with 44.9 mCi of technetium 99m Cardiolite and subsequently stress SPECT Cardiolite nuclear imaging was obtained in the horizontal long, vertical long, and short axis views. A gated Cardiolite study at peak stress was obtained. Interpretation: Rest and stress SPECT Cardiolite nuclear imaging status post realignment, normalization, and attenuation correction, demonstrates the appearance of a small area of subtle diminished tracer uptake near the apical segments without significant change between rest and stress. There is end systolic thickening and brightening. The gated Cardiolite study demonstrates myocardial thickening and inward wall motion. The reported LVEF is 72%. Impression: 1. Rest and stress SPECT Cardiolite nuclear imaging demonstrate myocardial perfusion changes appearing compatible with physiologic apical thinning with no myocardial perfusion changes considered diagnostic for associated stress-induced myocardial ischemia. 2. The gated Cardiolite study reports an LVEF of 72%. This note was generated with [employer] software. It may contain incorrect words, spelling, and punctuation that were not noted in checking the note before signing.
== END ==
PROVIDERS: PCP Family Medicine; Referring Provider Internal Medicine Cardiovascular Disease; Visit Provider Internal Medicine Cardiovascular Disease
DX: Z01.810 Encounter for preprocedural cardiovascular examination (principal); R06.00 Dyspnea, unspecified; R06.02 Shortness of breath
CPT/HCPCS: 78452; 93017; 93306; A9500; Q9957; A4216; C8929

== ENCOUNTER 2020-07-15 05:53 | Day surgery (SDC) | payer OTHER, SELFPAY ==
[2020-02-20 14:53] VITALS: BMI 51.2
[2020-07-10 10:36] VITALS: BMI 49.9
--- NOTE | 2020-07-12 17:42 | PCM.HP.BLA ---
History and Physical History and Physical Patient Name: Val Mckay : 1985 From: LEODAN ACEVEDO NP DATE OF SURGERY: 07/15/2020 and 07/29/2020 SCHEDULED PROCEDURE: Right carpal tunnel release ad left carpal tunnel release HISTORY OF PRESENT ILLNESS: Preoperative history and physical exam was performed on July 08, 2020. This is a 34-year-old female who has been experiencing ongoing bilateral hand pain for years. 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 The pain wakes the patient at night. The patient experiences pain, numbness and tingling while driving. She reports weakness when grabbing and grasping objects. The patient has a history of a syrinx. She takes gabapentin for the radicular pain due to the syrinx. Previous conservative measures attempted consist of wrist braces with minimal to no relief. The patient states that she is scheduled to have gastric bypass surgery. She reports that the carpal tunnel release and gastric bypass surgery are an attempt to relieve some of the discomfort due to the syrinx. Dr. Weir manages the syrinx. The patient denies chest pain, fevers, chills, shortness breath, difficulty breathing or recent infections. After failing conservative measures and discussing treatment options with Dr. Tray Novak the patient does wish to proceed with a right carpal tunnel release and left carpal tunnel release. REVIEW OF SYSTEMS: ROS: Const: Denies change in appetite, fever and weight change. CV: Denies chest pain, heart murmur and irregular heartbeat. Resp: Denies cough, pneumonia, shortness of breath, tuberculosis and wheezing. GI: Denies constipation, diarrhea, heartburn, nausea, rectal itching, bloody stools and vomiting. : Reports incontinence. Musculo: Reports weakness, but denies leg swelling, pain and trouble walking. Skin: Denies Raynaud's, history of shingles and tattoo. Neuro: Reports numbness/tingling but denies ambulatory dysfunction, dizziness and tremor. Psych: Denies anxiety, insomnia and stress. Wade/Lymph: Reports anemia, but denies bleeding/bruising tendency and past transfusion. Reviewed and updated. PAST MEDICAL HISTORY: Advance Care Plan: No Advance Directives Effective Date: 11/13/2018 PMH: Medical Problems: Syrinx Accidents: None Surgical Hx: Gallbladder - (2010) [facility] Dr. Perez Tonsillectomy - (2002) [place] Anesthesia Complications: None Assistive Devices: Glasses Reviewed and updated. 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 Personal Habits: Cigarette Use: Former.Smokeless Tobacco: Never Used Smokeless Tobacco.E-Cigarette Use: Never used.Alcohol: Denies use.Drug Use: Denies Use.Enjoy Exercising: Exercises 1-3 X/Week. Reviewed, no changes. VITALS: Ht: 65 Wt: 292lb Wt k.451 BMI: 48.6 BP: 126/78 Pulse: 78 Resp: 14 T: 97.9 T: 36.6C Pain Level: 3 ALLERGIES: Morphine MEDICATIONS: Ultram 50 mg 1-2 by mouth q6 hour as needed pain, Meloxicam 15 mg 1 by mouth every day, Gabapentin 100 mg 1 tab in the AM 3 tabs QHS, Iron (Ferrous Gluconate) 256 (28 Fe) MG 1 tab by mouth as directed, Hydrochlorothiazide 25 mg prn PRE-OP EXAM: General appearance:NORMAL Other: Eyes: Conjunctivae and lids: NORMAL Pupils: ERR Ears, Nose, Mouth, and Throat: NORMAL Other: Inspection of lips, teeth and gums: NORMAL Other: Respiratory: Assessment of respiratory effort: NORMAL Other: Auscultation of lungs: clear to auscultation no wheezes, rhonchi or rales. Cardiovascular: Auscultation of heart: regular rate and rhythm, no murmurs, gallops or rubs. Gastrointestinal: Exam of abdomen: soft, nontender, nondistended bowel sounds present. Neurological: see below Psychiatric: Orientation to time, place and person: NORMAL Other: Mood and affect: NORMAL Other: PHYSICAL EXAMINATION: Right hand skin is warm, dry and intact. Full right wrist range of motion. Patient is able to make a full composite fist with full extension of all digits. Positive Tinel's. Median nerve paresthesia. Sensation intact to light touch. Capillary refill less than 3 seconds. Radial pulse palpable. Left hand skin is warm, dry and intact. Full left wrist range of motion. Patient is able to make a full composite fist with full extension of all digits. Positive Tinel's. Median nerve paresthesia. Sensation intact to light touch. Capillary refill less than 3 seconds. Radial pulse palpable. IMAGING STUDIES: EMG of bilateral upper extremities obtained on May 25, 2020 reviewed reveal bilateral median mononeuropathy consistent with mild bilateral carpal tunnel syndrome. IMPRESSION: 1. Right carpal tunnel syndrome 2. Left carpal tunnel syndrome 3. Paresthesia of skin 4. Syrinx of cervical and thoracic spine 5. Obesity, BMI 48.6 PLAN: Dr. Tray Novak did discuss and review with the patient all treatment options including surgical versus nonsurgical. The patient does wish to proceed with the above-stated procedure. Potential risk, benefits and complications of the procedure were discussed in detail including but not limited to , infection, nerve and blood vessel damage, persistent pain, numbness, tingling, paresthesia, blood clot, pulmonary embolism and requirement for possible further surgery. The patient expressed full understanding and has no further questions for the doctor. The patient does agree to proceed with the above-stated procedure and has signed the surgery consent form. The patient was given a prescription for Ultram at her preoperative visit for the right carpal tunnel release. She will be given a prescription for Ultram at her right carpal tunnel release postoperative visit for the left carpal tunnel release. Discussed with the patient the risks associated with the COVID-19 virus including the risk of exposure while at the hospital. The patient was reassured local hospitals have low infection rates and taken all necessary precautions to limit patient exposure to COVID-19. Limiting the patient's time in the hospital may decrease their exposure to COVID-19. The patient was notified that we will need to comply with any screening or testing the hospital wishes to perform and that surgery may be delayed for any positive test results. This dictation was created using voice recognition software. Phonetic and/or grammatical errors may exist. ___ I have re-examined the patient. There are no clinical changes since date of exam. ___ See progress notes for changes. ___ Dictated on admission Date: Time: Signature:
[2020-07-15] VITALS (8 sets, daily range): BP systolic 93–123; BP diastolic 46–70; PULSE 59–77; RESP 16–18; TEMP 36.1–36.9; O2SAT 97–100; BMI 51.1
[2020-07-15] MEDS: Cefazolin 1 GM/50 ML BAG IV (07:25)
--- NOTE | 2020-07-15 07:32 | PCM.OPRPT ---
Report of Operation Date of Procedure: 07/15/20 Pre-Operative Diagnosis: R CTS Post-Operative Diagnosis: R CTS Surgery/Procedure Performed:: R CTR Description of Surgical Findings:: COMPLETE RELEASE TCL line supervisor: None Type of Anesthesia:: Balbina Gregg Anesthesiologist: Waqas Ramon Special Medications: ANCEF Estimated Blood Loss (mL): 2 Fluids Replaced: 350 mL crystalloid Description of Procedure: Brief history operative indications: 34-year-old female patient wished to proceed with right open carpal tunnel release. After discussing risks and benefits including but not limited to blood loss, DVTs, PEs, neurovascular damage, infection, hematoma and general risk of anesthesia, the patient demonstrated understanding wish to proceed with right open carpal tunnel release Procedure: On the date of the procedure, the patient's right upper extremity was marked in the preoperative area. Patient was taken back to the operating room, where the tourniquet was placed on the right upper extremity. Patient was given light sedation. All bony prominences are identified well-padded. Anesthesia assumed control C-spine and airway and remained in control throughout the remainder the procedure. [place] block was administered by anesthesia. The right upper extremity was prepped in sterile fashion. Surgeon then scrub. Upon reentering the room, the right upper extremity was prepped in a standard orthopedic fashion. A timeout was called and everyone agreed upon the side, the site, the procedure to be performed, patient identity and antibiotics given. The incision was marked out. Incision was taken at the skin subtenons tissue fat down to fascia. Fascia was then lightly tethered until the median nerve was visible. A [place] was placed proximally and distally, and then scissors were placed proximally and distally to release the transverse carpal ligament. During the release the others were never completely closed. The [place] was then placed proximally and distally once more to verify the transverse carpal ligament had been adequately released. The wound was then copiously irrigated out with normal saline. Wound was then closed using 3-0 nylon suture. 10 cc of 50-50 mixture of 1% lidocaine and 0.5% Sensorcaine without epinephrine injection was given. Xeroform dressing was placed, sterile dressing was placed, compressive dressing was placed. Tourniquet was let down. Volar splint was placed. Patient was awakened by anesthesia and transferred to the PACU for recovery. Postoperative plan: The patient will follow up in 2 weeks for removal splint removal sutures. At that time if they are doing well they will follow-up as needed. - Complications NONE - Admit VTE Documentation VTE Present on Admission: No VTE Mechan Device Prophylaxis: SCD's VTE Pharm Prophylaxis ordered?: No Reason prophylaxis not ordered:: Treatment Not Indicated
[2020-07-15] MEDS: Lidocaine 1% (20 ml mdv) 20 ML Vial (07:49)
[2020-07-15] MEDS: Bupivacaine Mpf 0.5% 30 ML VIAL (07:49)
[2020-07-15] MEDS: Ketorolac 30 MG/ML Syringe IV (08:05)
== END 2020-07-15 08:48 | disposition home or self-care (01) ==
LOC: SDC 05:54 → AC 05:54
PROVIDERS: PCP Family Medicine; Referring Provider Specialist; Visit Provider Specialist
PROC: (CPT 64721; principal; 2020-07-15 07:15)
DX: G56.01 Carpal tunnel syndrome, right upper limb (principal); G95.0 Syringomyelia and syringobulbia; D64.9 Anemia, unspecified; E66.9 Obesity, unspecified; Z68.42 Body mass index [BMI] 45.0-49.9, adult; Z20.828 Contact with and (suspected) exposure to other viral communicable diseases; Z87.891 Personal history of nicotine dependence
CPT/HCPCS: 01810; 64721; 87426; C9803; J7120

== ENCOUNTER 2020-07-29 05:46 | Day surgery (SDC) | payer OTHER, SELFPAY ==
[2020-02-20 14:53] VITALS: BMI 51.2
--- NOTE | 2020-07-12 17:42 | HP_ITS ---
History and Physical History and Physical Patient Name: Val Mckay : 1985 From: INGRID CAMEJO NP DATE OF SURGERY: 07/15/2020 and 07/29/2020 SCHEDULED PROCEDURE: Right carpal tunnel release ad left carpal tunnel release HISTORY OF PRESENT ILLNESS: Preoperative history and physical exam was performed on July 08, 2020. This is a 34-year-old female who has been experiencing ongoing bilateral hand pain for years. 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 She reports constant numbness and tingling in bilateral hands. The pain wakes the patient at night. The patient experiences pain, numbness and tingling while driving. She reports weakness when grabbing and grasping objects. The patient has a history of a syrinx. She takes gabapentin for the radicular pain due to the syrinx. Previous conservative measures attempted consist of wrist braces with minimal to no relief. The patient states that she is scheduled to have gastric bypass surgery. She reports that the carpal tunnel release and gastric bypass surgery are an attempt to relieve some of the discomfort due to the syrinx. Dr. Weir manages the syrinx. The patient denies chest pain, fevers, chills, shortness breath, difficulty breathing or recent infections. After failing conservative measures and discussing treatment options with Dr. Tray Novak the patient does wish to proceed with a right carpal tunnel release and left carpal tunnel release. REVIEW OF SYSTEMS: ROS: Const: Denies change in appetite, fever and weight change. CV: Denies chest pain, heart murmur and irregular heartbeat. Resp: Denies cough, pneumonia, shortness of breath, tuberculosis and wheezing. GI: Denies constipation, diarrhea, heartburn, nausea, rectal itching, bloody stools and vomiting. : Reports incontinence. Musculo: Reports weakness, but denies leg swelling, pain and trouble walking. Skin: Denies Raynaud's, history of shingles and tattoo. Neuro: Reports numbness/tingling but denies ambulatory dysfunction, dizziness and tremor. Psych: Denies anxiety, insomnia and stress. Wade/Lymph: Reports anemia, but denies bleeding/bruising tendency and past transfusion. Reviewed and updated. PAST MEDICAL HISTORY: Advance Care Plan: No Advance Directives Effective Date: 11/13/2018 PMH: Medical Problems: Syrinx Accidents: None Surgical Hx: Gallbladder - (2010) [employer] Dr. Perez Tonsillectomy - (2002) [place] Anesthesia Complications: None Assistive Devices: Glasses Reviewed and updated. 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.Work Status: Currently Working.Hand Dominance: Right-handed. Personal Habits: Cigarette Use: Former.Smokeless Tobacco: Never Used Smokeless Tobacco.E-Cigarette Use: Never used.Alcohol: Denies use.Drug Use: Denies Use.Enjoy Exercising: Exercises 1-3 X/Week. Reviewed, no changes. VITALS: Ht: 65 Wt: 292lb Wt k.451 BMI: 48.6 BP: 126/78 Pulse: 78 Resp: 14 T: 97.9 T: 36.6C Pain Level: 3 ALLERGIES: Morphine MEDICATIONS: Ultram 50 mg 1-2 by mouth q6 hour as needed pain, Meloxicam 15 mg 1 by mouth every day, Gabapentin 100 mg 1 tab in the AM 3 tabs QHS, Iron (Ferrous Gluconate) 256 (28 Fe) MG 1 tab by mouth as directed, Hydrochlorothiazide 25 mg prn PRE-OP EXAM: General appearance:NORMAL Other: Eyes: Conjunctivae and lids: NORMAL Pupils: ERR Ears, Nose, Mouth, and Throat: NORMAL Other: Inspection of lips, teeth and gums: NORMAL Other: Respiratory: Assessment of respiratory effort: NORMAL Other: Auscultation of lungs: clear to auscultation no wheezes, rhonchi or rales. Cardiovascular: Auscultation of heart: regular rate and rhythm, no murmurs, gallops or rubs. Gastrointestinal: Exam of abdomen: soft, nontender, nondistended bowel sounds present. Neurological: see below Psychiatric: Orientation to time, place and person: NORMAL Other: Mood and affect: NORMAL Other: PHYSICAL EXAMINATION: Right hand skin is warm, dry and intact. Full right wrist range of motion. Patient is able to make a full composite fist with full extension of all digits. Positive Tinel's. Median nerve paresthesia. Sensation intact to light touch. Capillary refill less than 3 seconds. Radial pulse palpable. Left hand skin is warm, dry and intact. Full left wrist range of motion. Patient is able to make a full composite fist with full extension of all digits. Positive Tinel's. Median nerve paresthesia. Sensation intact to light touch. Capillary refill less than 3 seconds. Radial pulse palpable. IMAGING STUDIES: EMG of bilateral upper extremities obtained on May 25, 2020 reviewed reveal bilateral median mononeuropathy consistent with mild bilateral carpal tunnel syndrome. IMPRESSION: 1. Right carpal tunnel syndrome 2. Left carpal tunnel syndrome 3. Paresthesia of skin 4. Syrinx of cervical and thoracic spine 5. Obesity, BMI 48.6 PLAN: Dr. Tray Novak did discuss and review with the patient all treatment options including surgical versus nonsurgical. The patient does wish to proceed with the above-stated procedure. Potential risk, benefits and complications of the procedure were discussed in detail including but not limited to , infection, nerve and blood vessel damage, persistent pain, numbness, tingling, paresthesia, blood clot, pulmonary embolism and requirement for possible further surgery. The patient expressed full understanding and has no further questions for the doctor. The patient does agree to proceed with the above-stated procedure and has signed the surgery consent form. The patient was given a prescription for Ultram at her preoperative visit for the right carpal tunnel release. She will be given a prescription for Ultram at her right carpal tunnel release postoperative visit for the left carpal tunnel release. Discussed with the patient the risks associated with the COVID-19 virus including the risk of exposure while at the hospital. The patient was reassured local hospitals have low infection rates and taken all necessary precautions to limit patient exposure to COVID-19. Limiting the patient's time in the hospital may decrease their exposure to COVID-19. The patient was notified that we will need to comply with any screening or testing the hospital wishes to perform and that surgery may be delayed for any positive test results. This dictation was created using voice recognition software. Phonetic and/or grammatical errors may exist. ___ I have re-examined the patient. There are no clinical changes since date of exam. ___ See progress notes for changes. ___ Dictated on admission Date: Time: Signature: 07/12/201742 <Electronically signed by Ingrid abarca [employer]> Date _ Ingrid Camejo [employer] Cosigner Signature: Date (if applicable) CC: [employer] Ingrid Camejo; Dr. Elisabet Bales DO; Dr. Tray Novak MD ~ Signed ADDENDUM by Dr. Tray Novak MD on 07/15/20 at 0713 I have re-examined the patient. There are no clinical changes since date of exam 07/15/20712 <Electronically signed by Tray Novak MD> Date _ Tray Novak MD cc: [employer] Ingrid Camejo; Dr. Elisabet Bales DO; Dr. Tray Novak MD ~* Signed ADDENDUM by Dr. Tray Novak MD on 07/29/20 at 0650 I have re-examined the patient. There are no clinical changes since date of exam 07/29/20 0650 <Electronically signed by Tray Novak MD> Date _ Tray Novak MD
[2020-07-15 06:25] LABS: Internal QC Validated? YES +Cl - CLEAR BKGD; Pregnancy, Urine Negative Negative
[2020-07-15 06:28] VITALS: BMI 51.1
[2020-07-29] VITALS (7 sets, daily range): BP systolic 99–130; BP diastolic 68–92; PULSE 67–74; RESP 14; TEMP 35.9–36.8; O2SAT 95–100; BMI 51.2
[2020-07-29 06:14] LABS: Internal QC Validated? YES +Cl - CLEAR BKGD; Pregnancy, Urine Negative Negative
[2020-07-29] MEDS: Lactated Ringers 1,000 ML 100 ML IV (06:33)
[2020-07-29] MEDS: Cefazolin 1 GM/50 ML BAG IV (07:10)
--- NOTE | 2020-07-29 07:13 | PCM.OPRPT ---
Report of Operation Date of Procedure: 07/29/20 Pre-Operative Diagnosis: Left carpal tunnel syndrome Post-Operative Diagnosis: Left carpal tunnel syndrome Surgery/Procedure Performed:: Left carpal tunnel release Description of Surgical Findings:: Complete release transverse carpal ligament fire sprinkler installer: None Type of Anesthesia:: Block,Balbina Anesthesiologist: Waqas Ramon Special Medications: Ancef Estimated Blood Loss (mL): 2 Fluids Replaced: 400 mL crystalloid Description of Procedure: Brief history operative indications: 34-year-old female who failed conservative measures for left carpal tunnel syndrome. Patient wished to proceed with left open carpal tunnel release. After discussing risks and benefits including but not limited to blood loss, DVTs, PEs, neurovascular damage, infection, hematoma and general risk of anesthesia, the patient demonstrated understanding wish to proceed with left open carpal tunnel release Procedure: On the date of the procedure, the patient's left upper extremity was marked in the preoperative area. Patient was taken back to the operating room, where the tourniquet was placed on the right upper extremity. Patient was given light sedation. All bony prominences are identified well-padded. Anesthesia assumed control C-spine and airway and remained in control throughout the remainder the procedure. Balbina block was administered by anesthesia. The left upper extremity was prepped in sterile fashion. Surgeon then scrub. Upon reentering the room, the left upper extremity was prepped in a standard orthopedic fashion. A timeout was called and everyone agreed upon the side, the site, the procedure to be performed, patient identity and antibiotics given. The incision was marked out. Incision was taken at the skin subtenons tissue fat down to fascia. Fascia was then lightly tethered until the median nerve was visible. A [place] was placed proximally and distally, and then scissors were placed proximally and distally to release the transverse carpal ligament. During the release the others were never completely closed. The [place]ell was then placed proximally and distally once more to verify the transverse carpal ligament had been adequately released. The wound was then copiously irrigated out with normal saline. Wound was then closed using 3-0 nylon suture. 10 cc of 50-50 mixture of 1% lidocaine and 0.5% Sensorcaine without epinephrine injection was given. Xeroform dressing was placed, sterile dressing was placed, compressive dressing was placed. Tourniquet was let down. Volar splint was placed. Patient was awakened by anesthesia and transferred to the PACU for recovery. Postoperative plan: The patient will follow up in 2 weeks for removal splint removal sutures. At that time if they are doing well they will follow-up as needed. - Complications No intraoperative complications - Admit VTE Documentation VTE Present on Admission: No VTE Mechan Device Prophylaxis: SCD's VTE Pharm Prophylaxis ordered?: No Reason prophylaxis not ordered:: Treatment Not Indicated
[2020-07-29] MEDS: Lidocaine 1% (20 ml mdv) 20 ML Vial (07:30)
[2020-07-29] MEDS: Bupivacaine Mpf 0.5% 30 ML VIAL (07:30)
== END 2020-07-29 08:23 | disposition home or self-care (01) ==
LOC: SDC 05:46 → AC 05:46
PROVIDERS: Anesthesiology; PCP Family Medicine; Referring Provider Specialist; Visit Provider Specialist
PROC: (CPT 64721; principal; 2020-07-29 07:00)
DX: G56.02 Carpal tunnel syndrome, left upper limb (principal); Z20.828 Contact with and (suspected) exposure to other viral communicable diseases; Z87.891 Personal history of nicotine dependence
CPT/HCPCS: 64721; 81025; 87426; C9803; J7120; A4216; J2405

== ENCOUNTER → 2020-10-21 07:11 | Outpatient (CLI) | payer OTHER, SELFPAY ==
[2020-07-29 06:27] VITALS: BMI 51.2
--- NOTE | 2020-10-21 07:23 | MRI_ITS ---
STUDY: MRI CERVICAL SPINE WITH AND WITHOUT CONTRAST REASON FOR EXAM: Female, 34 years old. SYRINGOMYELIA, CERVICAL RADICULOPATHY -- FOLLOW UP FOR SYRINX THAT IS SYMPTOMATIC TECHNIQUE: Standardized fat and water weighted pulse sequences were obtained in the sagittal and axial following administration of 23ml IV Dotarem. COMPARISON: MRI cervical spine without contrast 10/16/2019. MRI cervical spine with contrast 06/14/2018. FINDINGS: Normal foramen magnum and brainstem-cervical cord junction. Normal craniovertebral junction. Normal anterior atlantoaxial articulation. Normal odontoid process. Normal cervical lordosis. Normal vertebral bodies and posterior osseous elements. C2-3: Normal endplates. Normal disc height, signal and morphology. Normal central canal and intervertebral neural foramina. C3-4: Normal endplates. Normal disc height, signal and morphology. Normal central canal and intervertebral neural foramina. C4-5: Normal endplates. Normal disc height, signal and morphology. Normal central canal and intervertebral neural foramina. C5-6: Normal endplates. Normal disc height, signal and morphology. Normal central canal and intervertebral neural foramina. C6-7: Normal endplates. Normal disc height, signal and morphology. Normal central canal and intervertebral neural foramina. C7-T1: Normal endplates. Normal disc height, signal and morphology. Normal central canal and intervertebral neural foramina. Normal cervical cord. Midline syrinx of the thoracic spinal cord extending from T2 and caudally. This did not enhance with intravenous contrast. No abnormal enhancing lesions intradurally and extradurally. Normal visualized soft tissue structures. MRI/Spine Cervical W/WO Contrast IMPRESSION: 1. No MRI evidence of CHIARI anomaly. 2. Tiny midline syrinx of the upper thoracic spinal cord at T2 level and caudally. Please see MRI thoracic spine. 3. No abnormal enhancing lesions intradurally and extradurally. 4. Normal MRI of the cervical spine with and without contrast. 5. No interval change when compared to 10/16/2019 and 06/14/2018. Electronically Signed: Clay Chavez MD at 16:14 EST , Service support ,
--- NOTE | 2020-10-21 07:23 | MRI_ITS ---
EXAM: MR THORACIC SPINE WITHOUT AND WITH INTRAVENOUS CONTRAST CLINICAL INDICATION: Thoracic radiculopathy, syringomyelia -- symptomatic syrinx. TECHNIQUE: Multiplanar and multisequence MR images of the thoracic spine without and with intravenous contrast. This report was created using [employer] technology. CONTRAST: 23ml IV Dotarem COMPARISON: MRI thoracic spine without contrast 10/16/2019. FINDINGS: VERTEBRAE: Unremarkable. No fracture. Normal vertebral bodies and posterior elements. Normal alignment. There is preservation of the normal thoracic kyphosis. No scoliosis. DISCS/SPINAL CANAL/NEURAL FORAMINA: Unremarkable. Normal disc height and morphology. Normal spinal canal and neuroforamina. SPINAL CORD: Nonenhancing intramedullary syrinx extending from at least T2-T3 disc base level down to the mid T8 vertebral body level. The syrinx is more prominent at the mid T5 down to the lower T7 vertebral body level. There is a tiny faint linear syrinx of the spinal cord at the T8-T9 disc level down to the upper T10 vertebral body level. This is also nonenhancing. The conus terminates at the lower T12 vertebral body level. SOFT TISSUES: Unremarkable. MRI/Spine Thoracic W/WO Contrast IMPRESSION: 1. Benign nonneoplastic nonenhancing syrinx of the thoracic spinal cord extending from T2-T3 disc space level down to the mid T8 vertebral body level and a skip nonenhancing linear syrinx at the T8-T9 disc level down to the upper T10 vertebral body level. 2. No interval changes when compared to 10/16/2019. COMMENT: The prior report mentioned minimal central canal stenosis at T6-T7 disc space level. In my opinion, the thecal sac is quite capacious at the T6-T7 disc level. There is prominent dorsal subarachnoid space throughout the thoracic spine and particularly at the T6-T7 disc level. There is no spinal stenosis throughout the thoracic spine. Additionally, there is no associated CHIARI anomaly. Electronically Signed: Clay Chavez MD at 16:07 EST , Service support ,
== END ==
PROVIDERS: PCP Family Medicine
DX: M54.12 Radiculopathy, cervical region (principal); M54.14 Radiculopathy, thoracic region; G95.0 Syringomyelia and syringobulbia
CPT/HCPCS: 72156; 72157; A9575

== ENCOUNTER → 2021-01-05 08:38 | Outpatient (CLI) | payer OTHER, SELFPAY ==
[2020-07-29 06:27] VITALS: BMI 51.2
--- NOTE | 2021-01-05 09:00 | RAD_ITS ---
STUDY: X-RAY CHEST REASON FOR EXAM: Female, 35 years old. +PPD TECHNIQUE: PA and lateral views of the chest. COMPARISON: None. FINDINGS: The lungs are clear and expanded. There is no demonstrated pleural abnormality. Normal size heart. Normal mediastinum and tucker. Normal visualized pulmonary arteries. Normal visualized aortic arch and descending thoracic aorta. Normal visualized thoracic spine. Normal visualized ribs, clavicles, and shoulders. There is no demonstrated abnormality of the visualized soft tissue structures of the upper abdomen. RAD/Chest PA and Lateral IMPRESSION: Normal x-ray examination of the chest. Electronically Signed: Miguel Huntley MD at 21:58 EDT , Service support ,
[2021-01-05 10:16] LABS: Absolute Lymphocyte Count 1.96 X10^3/uL (0.83-4.51); Absolute Neutrophil Count 3.3 X10^3/uL (2.0-7.7); Basophil# 0.03 X10^3/uL; Basophil% 0.5 % (0-1); Eosinophil# 0.18 X10^3/uL; Hematocrit 36.6 % (37-47); Hemoglobin 11.4 g/dL (12.0-15.0); Lymphocyte # 1.96 X10^3/ul (0.83-4.51); Lymphocyte % 32.3 % (19-41); Mean Corp Hgb Conc 31.1 g/dL (32-36); Mean Corpuscular Hgb 25.8 pg (27.0-32.0); Mean Corpuscular Volume 82.8 fL (81-99); Mean Platelet Vol. 10.6 fl (6.2-12.0); Monocyte# 0.54 X10^3/uL; Monocyte% 8.9 % (0-10); NRBC Flagged by Analyzer 0 % (0-5); Neutrophil # 3.34 X10^3/uL (2.7-7.7); Platelet Count 336 K/mm3 (150-450); RBC Distribution Width CV 14.6 % (11.6-14.6); RBC Distribution Width SD 43.7 fl (35.1-43.9); Red Blood Count 4.42 M/mm3 (4.2-5.4); White Blood Count 6.1 K/mm3 (4.4-11.0)
[2021-01-05 10:27] LABS: PTHIN 34.6 pg/mL (18.4-80.1)
[2021-01-05 10:42] LABS: AST(SGOT) 14 U/L (15-37); Alanine Aminotransfer ALT/SGPT 17 U/L (13-56); Albumin, Serum 3.7 g/dL (3.2-5.0); Alkaline Phosphatase 114 U/L (45-117); Anion Gap 5 (5-15); BUN 11 mg/dL (7-18); BUN/Creat Ratio 15.1 RATIO (10-20); Calcium,Total 8.9 mg/dL (8.5-10.1); Chloride 106 mmol/L (98-107); Cholesterol 168 mg/dL (200); Creatinine, Serum 0.73 mg/dL (0.55-1.02); EST Glomerular Filtration Rate 96 mL/min (>60); Est Glom Filt Rate - Afr Amer 116 mL/min (>60); Ferritin 6 ng/mL (8-252); Free T3 2.6 pg/mL (2.18-3.98); Globulin 3.7 g/dL (2.2-4.2); Glucose 89 mg/dL (74-106); High Density Lipoprotein 49 mg/dL; Iron 35 ug/dL (50-170); Potassium 3.6 mmol/L (3.5-5.1); Protein, Total 7.4 g/dL (6.4-8.2); Sodium Level 139 mmol/L (136-145); T4 Free Direct 1.04 ng/dL (0.76-1.46); Thyroid Stim Hormone (TSH) 0.56 uIU/mL (0.358-3.74); Triglycerides 78 mg/dL; Very Low Density Lipoprotein 16 mg/dL (5-40)
[2021-01-05 10:48] LABS: Vitamin B12 1521 pg/mL (211-911)
[2021-01-07 12:28] LABS: Vitamin D,25 Hydroxy 29.7 ng/mL
[2021-01-11 03:06] LABS: Vitamin B1, Thiamine 72.1 nmol/L (66.5-200.0)
[2021-01-11 07:15] LABS: Copper, Serum or Plasma 141 ug/dL (80-158); Vitamin A, Retinol 29.3 ug/dL (18.9-57.3); Zinc, Plasma or Serum 72 ug/dL (44-115)
== END ==
PROVIDERS: PCP Family Medicine; Referring Provider Family Medicine; Visit Provider Family Medicine
DX: E03.9 Hypothyroidism, unspecified (principal); D50.9 Iron deficiency anemia, unspecified; E55.9 Vitamin D deficiency, unspecified; E53.8 Deficiency of other specified B group vitamins; E78.5 Hyperlipidemia, unspecified; Z11.1 Encounter for screening for respiratory tuberculosis; Z98.84 Bariatric surgery status
CPT/HCPCS: 36415; 71046; 80053; 80061; 82306; 82525; 82607; 82728; 82746; 83540; 83970; 84425; 84439; 84443; 84481; 84590; 84630; 85025

== ENCOUNTER → 2022-11-29 | Outpatient (CLI) | payer OTHER, BC, SELFPAY ==
[2022-11-29 17:49] LABS: Absolute Lymphocyte Count 2.09 X10^3/uL (0.83-4.51); Absolute Neutrophil Count 2.8 X10^3/uL (2.0-7.7); Basophil# 0.04 X10^3/uL; Basophil% 0.7 % (0-1); Eosinophils% 1.8 % (0-5); Hematocrit 33.7 % (37-47); Hemoglobin 9.8 g/dL (12.0-15.0); Lymphocyte # 2.09 X10^3/ul (0.83-4.51); Lymphocyte % 37.7 % (19-41); Mean Corp Hgb Conc 29.1 g/dL (32-36); Mean Corpuscular Volume 78.9 fL (81-99); Mean Platelet Vol. 10.5 fl (6.2-12.0); Monocyte# 0.49 X10^3/uL; Monocyte% 8.8 % (0-10); NRBC Flagged by Analyzer 0 % (0-5); Neutrophil # 2.81 X10^3/uL (2.7-7.7); Neutrophil % 50.6 % (47-70); Platelet Count 301 K/mm3 (150-450); RBC Distribution Width CV 14.5 % (11.6-14.6); RBC Distribution Width SD 41.7 fl (35.1-43.9); Red Blood Count 4.27 M/mm3 (4.2-5.4); White Blood Count 5.6 K/mm3 (4.4-11.0)
[2022-11-29 18:08] LABS: ALB/GLOB Ratio 1.1 RATIO (0.9-2.4); AST(SGOT) 14 U/L (15-37); Alanine Aminotransfer ALT/SGPT 22 U/L (13-56); Albumin, Serum 3.7 g/dL (3.2-5.0); Alkaline Phosphatase 92 U/L (45-117); Anion Gap 3 (5-15); BUN 12 mg/dL (7-18); BUN/Creat Ratio 19.1 RATIO (10-20); Calcium,Total 8.8 mg/dL (8.5-10.1); Chloride 109 mmol/L (98-107); Cholesterol 168 mg/dL (200); Creatinine, Serum 0.63 mg/dL (0.55-1.02); EST Glomerular Filtration Rate 113 mL/min (>60); Est Glom Filt Rate - Afr Amer 137 mL/min (>60); Ferritin 4 ng/mL (8-252); Globulin 3.4 g/dL (2.2-4.2); Glucose 88 mg/dL (74-106); High Density Lipoprotein 67 mg/dL; Iron 32 ug/dL (50-170); Potassium 3.7 mmol/L (3.5-5.1); Protein, Total 7.1 g/dL (6.4-8.2); Sodium Level 137 mmol/L (136-145); Triglycerides 52 mg/dL; Very Low Density Lipoprotein 10 mg/dL (5-40)
== END | disposition home or self-care (01) ==
PROVIDERS: PCP Family Medicine
DX: Z00.00 Encounter for general adult medical examination without abnormal findings (principal); D50.9 Iron deficiency anemia, unspecified; Z13.220 Encounter for screening for lipoid disorders
CPT/HCPCS: 36415; 80053; 80061; 82728; 83540; 85025

== ENCOUNTER → 2023-01-10 | Outpatient (CLI) | payer BC, SELFPAY ==
--- NOTE | 2023-01-10 15:25 | MRI_ITS ---
STUDY: MRI THORACIC SPINE WITHOUT CONTRAST REASON FOR EXAM: Female, 37 years old. SYRINX FOLLOW UP TECHNIQUE: MRI examination of the thoracic spine obtained with a standard protocol including multiplanar multiecho pre and postcontrast imaging. Contrast: 20 mL Clariscan IV. COMPARISON: 10/21/2020 FINDINGS: VERTEBRAL BODIES: 1. Normal kyphosis of the thoracic spine. There is no substantial scoliosis. No areas of abnormal contrast enhancement. INTERVERTEBRAL DISC SPACES: 1. T1-2, T2-3, T3-4, T4-5, T5-6, T6-7, T7-8, T8-9, T9-10, T10-11, T11-12: Disc spaces are maintained with the exception of a minimal broad-based disc bulge and osteophyte complex greater on LEFT than RIGHT at T7-8. No acute disc herniation or canal stenosis. Minimal disc bulge also noted at T6-7. SPINAL CORD: 1. Thoracic cord is normal appearance, conus is located at T12-L1. Again noted is a syrinx within the thoracic cord with maximal dimension of approximately 2.4 mm. This extends from approximately T3 to inferior endplate of T8. As noted previously, there is a tiny central portion of the syrinx extending to the T10 vertebral body level. No associated contrast enhancement, no masses noted. 2. Again noted is prominence of the dorsal intradural CSF space in the mid thoracic spine. 3. Normal conus medullaris that terminates at the . PARASPINOUS SOFT TISSUES: The soft tissue structures are unremarkable. MRI/Spine Thoracic W/WO Contrast IMPRESSION: 1. Stable appearance of a syrinx within the thoracic cord extending from T3 to T8, with a small caliber extension inferiorly to the level of T10 vertebral body. No detrimental interval change, no underlying mass or contrast abnormality. 2. Mild thoracic spondylosis with mild stable disc bulge most notable at T7-8. No evidence of canal or foraminal narrowing. No evidence cord compression. 3. No areas of abnormal intramedullary, intradural, extradural, or spinal contrast enhancement. Electronically Signed: Yinka Donald MD at 23:08 EDT ,
--- NOTE | 2023-01-10 15:26 | MRI_ITS ---
STUDY: MRI CERVICAL SPINE REASON FOR EXAM: Female, 37 years old. SYRINX FOLLOW UP TECHNIQUE: MRI examination cervical spine obtained with standard protocol including multiplanar multiecho pre and postcontrast imaging. Contrast: 20 mL Clariscan IV. COMPARISON: 10/21/2020 FINDINGS: Vertebral bodies and alignment: 1. Vertebral body height and alignment are maintained. No evidence of marrow edema, fracture or subluxation. 2. Prevertebral soft tissue planes have normal appearance. 3. Normal appearance the odontoid process and alignment of the craniocervical junction. 4. Normal appearance the posterior muscular fascial planes of the cervical spine, and the posterior ligamentous support structure the cervical spine is intact. Intervertebral disc levels: C2-3: Normal endplates. Normal disc height, signal and morphology. Normal central canal and intervertebral neural foramina. C3-4: Normal endplates. Normal disc height, signal and morphology. Normal central canal and intervertebral neural foramina. C4-5: Normal endplates. Normal disc height, signal and morphology. Normal central canal and intervertebral neural foramina. C5-6: Normal endplates. Normal disc height, signal and morphology. Normal central canal and intervertebral neural foramina. C6-7: Normal endplates. Normal disc height, signal and morphology. Normal central canal and intervertebral neural foramina. C7-T1: Normal endplates. Normal disc height, signal and morphology. Normal central canal and intervertebral neural foramina. T1-T2: Broad-based posterior disc bulge without canal stenosis. Spinal CORD: There is normal configuration of the cervical cord. There is a subtle syrinx at approximately the T2 level. No associated contrast enhancement noted. No mass noted. Normal appearance the cervical medullary junction without evidence of Chiari malformation. No evidence of cord compression. MRI/Spine Cervical W/WO Contrast IMPRESSION: 1. Stable exam. 2. No evidence of disc herniation canal stenosis cord or nerve root impingement. 3. There is a subtle rostral continuation of the thoracic syrinx extending to the level of T2 vertebral body without significant change. No mass or enhancement noted. Electronically Signed: Yikna Donald MD at 23:14 EDT ,
== END | disposition home or self-care (01) ==
LOC: MRI 15:12
PROVIDERS: PCP Family Medicine
DX: G95.0 Syringomyelia and syringobulbia (principal); M54.12 Radiculopathy, cervical region; M54.14 Radiculopathy, thoracic region
CPT/HCPCS: 72156; 72157; A9575

== ENCOUNTER → 2023-02-13 | Outpatient (CLI) | payer BC, SELFPAY | END | disposition home or self-care (01) | LOC: LABSPEC 12:07 | PROVIDERS: PCP Family Medicine; Referring Provider Physician Assistant Surgical; Visit Provider Physician Assistant Surgical | DX: R30.0 Dysuria (principal) | CPT/HCPCS: 87077; 87086; 87088; 87186 ==

== ENCOUNTER → 2023-11-10 | Outpatient (CLI) | payer BC, SELFPAY ==
--- NOTE | 2023-11-10 15:29 | MRI_ITS ---
EXAM: MR CERVICAL SPINE WITHOUT INTRAVENOUS CONTRAST CLINICAL INDICATION: SYRINX, NECK PAIN -- UNABLE TO OBTAIN IV ACCESS DONE W/O TECHNIQUE: Multiplanar and multisequence MR images of the cervical spine without intravenous contrast were performed. COMPARISON: 01/10/2023 FINDINGS: VERTEBRAE: Unremarkable. Normal vertebral bodies and posterior elements. Normal alignment. Normal craniocervical junction and cervicothoracic junction. No spondylolisthesis. There is preservation of the normal cervical lordosis. SPINAL CORD: Unremarkable in signal and morphology. SOFT TISSUES: Unremarkable. No prevertebral soft tissue swelling. LYMPH NODES: Unremarkable. There is no cervical adenopathy. DISCS/SPINAL CANAL/NEURAL FORAMINA: C2-C3: Unremarkable. Normal disc height and morphology. Normal spinal canal. Normal neuroforamina. C3-C4: Unremarkable. Normal disc height and morphology. Normal spinal canal. Normal neuroforamina. C4-C5: Unremarkable. Normal disc height and morphology. Normal spinal canal. Normal neuroforamina. C5-C6: C5-6: Posterior disc bulge with mild impression on the ventral thecal sac. No spinal stenosis. Normal neuroforamina. C6-C7: Unremarkable. Normal disc height and morphology. Normal spinal canal. Normal neuroforamina. C7-T1: Unremarkable. Normal disc height and morphology. Normal spinal canal. Normal neuroforamina. MRI/Spine Cervical (Routine) IMPRESSION: 1. New posterior disc bulge at C5-6. 2. T1-2: Stable posterior disc bulge and syrinx. 3. The previously noted thoracic syrinx has extended superiorly to the level of C3-4. Electronically Signed: Rudi Maldonado MD at 20:32 EDT ,
== END | disposition home or self-care (01) ==
LOC: MRI 15:27
PROVIDERS: PCP Family Medicine; Referring Provider Nurse Practitioner Family; Visit Provider Nurse Practitioner Family
DX: M54.2 Cervicalgia (principal); G95.0 Syringomyelia and syringobulbia
CPT/HCPCS: 72141

== ENCOUNTER → 2023-12-06 | Outpatient (CLI) | payer BC, SELFPAY ==
--- NOTE | 2023-12-06 14:55 | MRI_ITS ---
EXAM: MR THORACIC SPINE WITHOUT AND WITH INTRAVENOUS CONTRAST CLINICAL INDICATION: PARASTHESIA,ARM WEAKNESS,SYRINX TECHNIQUE: Multiplanar and multisequence MR images of the thoracic spine without and with intravenous contrast. CONTRAST: IV 20ml Clariscan COMPARISON: MR Thoracic Spine dated 01/10/2023 FINDINGS: VERTEBRAE: Normal. No fracture. Normal vertebral bodies and posterior elements. Normal alignment. There is preservation of the normal thoracic kyphosis. No scoliosis. DISCS/SPINAL CANAL/NEURAL FORAMINA: Previously noted disc bulging at the T7-8 level is no longer apparent. Normal spinal canal and neuroforamina. SPINAL CORD: Stable appearing thoracic cord syrinx which extends from the T5 to the T8 level. No abnormal contrast enhancement of the cord. Normal conus medullaris. SOFT TISSUES: Normal. MRI/Spine Thoracic W/WO Contrast IMPRESSION: 1. Stable thoracic cord syrinx. 2. Resolution of the T7-8 disc bulging. Electronically Signed: Paresh Pino MD at 16:28 EDT ,
--- NOTE | 2023-12-06 14:55 | MRI_ITS ---
EXAM: MR CERVICAL SPINE WITH INTRAVENOUS CONTRAST CLINICAL INDICATION: NECK PAIN,SYRINXPARASTHESIA,ARM WEAKNESS TECHNIQUE: Multiplanar and multisequence MR images of the cervical spine with intravenous contrast were performed. CONTRAST: IV 20ml Clariscan COMPARISON: MR Cervical Spine dated 11/10/2023 FINDINGS: VERTEBRAE: Normal. Normal vertebral bodies and posterior elements. Normal alignment. Normal craniocervical junction and cervicothoracic junction. No spondylolisthesis. There is preservation of the normal cervical lordosis. SPINAL CORD: Unremarkable in signal and morphology. SOFT TISSUES: Normal. No prevertebral soft tissue swelling. LYMPH NODES: Normal. There is no cervical adenopathy. DISCS/SPINAL CANAL/NEURAL FORAMINA C5-C6: The postcontrast images of the cervical spine show no abnormal enhancement. The disc bulging at the C5-6 level again noted without significant spinal stenosis. Neural foramina are intact. MRI/Spine Cervical WITH Contrast IMPRESSION: No abnormal cord enhancement. No interval change. Electronically Signed: Paresh Pino MD at 16:34 EDT ,
== END | disposition home or self-care (01) ==
PROVIDERS: PCP Family Medicine; Referring Provider Family Medicine; Visit Provider Family Medicine
DX: G95.0 Syringomyelia and syringobulbia (principal); R20.2 Paresthesia of skin; M79.602 Pain in left arm; R29.898 Other symptoms and signs involving the musculoskeletal system
CPT/HCPCS: 72142; 72157; A9575